=== PATIENT | male | born 1960 | race Caucasian/White ===

== ENCOUNTER 2016-12-13 07:11 | Day surgery (SDC) | payer OTHER ==
[2016-12-13] MEDS ORDERED: DEXAMETHASONE INJECTION 10 MG in SODIUM CHLORIDE 50 ML IVPB ONE (08:00)
[2016-12-13] MEDS ORDERED: PALONOSETRON HCL 0.25 MG in SODIUM CHLORIDE 50 ML IVPB ONE (08:00)
[2016-12-13] MEDS ORDERED: DEXTROSE 5% IVPB ONE (08:30)
[2016-12-13] MEDS ORDERED: WATER IVPB ONE (08:30)
[2016-12-13] MEDS ORDERED: LEUCOVORIN IVPB ONE (08:30)
[2016-12-13] MEDS ORDERED: OXALIPLATIN 100 MG, OXALIPLATIN 40 MG in DEXTROSE 5%-WATER - 500 ML IV ONE (08:30)
[2016-12-13 10:10] LABS: BASOPHIL 0.6 % (0-2.0); MCH 29.7 pg (25.7-33.7); MCHC 33.6 g/dl (32.0-35.9); MEAN CELL VOLUME 88.3 fl (80-96); MEAN PLT VOLUME 8.1 fl (7.5-11.1); NEUTROPHILS 74.3 % (42.8-82.8); PLATELET COUNT 188 K/MM3 (134-434); WHITE BLOOD COUNT 6.6 K/mm3 (4.0-10.0)
[2016-12-13 10:29] LABS: ALBUMIN 3.9 g/dl (3.4-5.0); ALK PHOS 58 U/L (45-117); ANION GAP 10 (8-16); BILIRUBIN,TOTAL 0.5 mg/dL (0.2-1.0); CALCIUM 9.1 mg/dL (8.5-10.1); CO2 27 mmol/L (21-32); COCKROFT - GAULT 131; CREATININE 0.9 mg/dL (0.7-1.3); GLUCOSE,RANDOM 147 mg/dL (74-106); MAGNESIUM 2.2 mg/dL (1.8-2.4); SGOT/AST 34 U/L (15-37); SGPT/ALT 56 U/L (12-78); TOT PROT 7.2 g/dl (6.4-8.2)
[2016-12-13] MEDS ORDERED: FLUOROURACIL IV ONE (10:30)
[2016-12-13] MEDS ORDERED: SODIUM CHLORIDE IV ONE (10:30)
[2016-12-13] MEDS ORDERED: SODIUM CHLORIDE 500 ML IV SCH (13:15)
[2016-12-13] MEDS ORDERED: DEXAMETHASONE INJECTION 12 MG in SODIUM CHLORIDE 50 ML IVPB ONE (13:15)
--- NOTE | 2016-12-13 13:36 | PN ---
Progress Note (short form) - Note Progress Note: ID consult dictated D/w Dr White irritation on the anterior shaft of penis- approx 1/2 cm getting more painful over last one week no fevers no chills no history of hsv not sexually active for over one year diagnosed with stage 3 rectal cancer in 12/2015, s/p chemo and RT, then surgery 06/29/16 now has colostomy ?hsv could be 1 or 2 ?juanis ?irritation from colostomy bag for chemotherapy today viral culture for HSV sent to start po valtrex and lotrimin cream d/w Dr White
[2016-12-13] MEDS ORDERED: CLOTRIMAZOLE 1% CREAM 15 GM TUBE TP SCH (13:45)
--- NOTE | 2016-12-13 14:17 | CONS ---
DATE OF CONSULTATION: REQUESTING PHYSICIAN: Cindy Hazel MD HISTORY: This is a 56-year-old man with a past medical history of hypertension. He was diagnosed in December 2015 with stage 3 rectal cancer. He underwent chemotherapy and radiation and subsequently underwent surgery on June 29, 2016 and had a colostomy done at that time. He was living in [place]. He then moved to [place] and is scheduled to start his chemotherapy. He has been complaining for the last 1 week of a small area of painful irritation on the anterior shaft of his penis, which has been increasing in discomfort. He denies any fevers, chills, nausea, or vomiting. He, otherwise, feels well. He does note that the colostomy bag the edge of one of the plastic sometimes does irritate him, and he is wondering could this be due to that irritation. He has never had a genital lesion in the past. There is no history of STDs. He has not been sexually active in over a year. There is no history of any prior HSV, and he is not diabetic. I am asked to see him regarding these lesions. ALLERGIES: He has no drug allergies. MEDICATIONS: He takes antihypertensives as an outpatient. PAST MEDICAL HISTORY: Notable for hypertension, stage 3 rectal cancer. PAST SURGICAL HISTORY: Notable for the recent surgery in June as well as prior left rotator cuff surgery. FAMILY HISTORY: Unremarkable. SOCIAL HISTORY: He is from his . There is no history of any substance use. REVIEW OF SYSTEMS: He has no weight loss. He has no nausea, vomiting, diarrhea, or dysuria. PHYSICAL EXAMINATION: General: He is awake and alert. Vital Signs: Temperature 98.6, pulse 100, blood pressure 140/90, respiratory rate 22. He weighs 227 pounds. HEENT: He is normocephalic. His eyes are anicteric. Neck: Supple. Lungs: Clear to auscultation. Chest: He has a port in his right chest that is without any erythema or pain on palpation. Heart: Regular rate and rhythm. Abdomen: Soft. He has a colostomy that is functional. Genitourinary: On his penis he has a small area of erosion of about 0.5 cm on the anterior aspect of the shaft of the penis. There is no obvious vesical, but it is slightly eroded. He has no associated inguinal adenopathy. LABORATORY DATA: His labs are notable for a white count 6.6, hemoglobin 14.6, platelets 188, BUN 14, creatinine 0.9. LFTs are normal. In summary, this is a 56-year-old man with stage 3 rectal cancer to start chemotherapy who has a small irritation on the anterior surface of his penis approximately 0.5 cm in size. This could possibly be HSV. It could be HSV1 as well as possibly [place] or irritation from the colostomy bag. He is for chemotherapy today. A viral culture for HSV was collected and sent. I would start oral Valtrex and Lotrimin cream. This was all discussed Dr. White and with the patient, who is agreeable. Chemotherapy per Dr. White who will follow up on the viral culture results. If the viral culture is negative, it could be reasonable to stop his Valtrex. YESSY ANDRE M.D. [id number]
[2016-12-13] MEDS ORDERED: PORTA CATH FLUSH 10 ML IVPUSH ONE (14:46)
[2016-12-13 14:47] VITALS: TEMP 98.2
--- NOTE | 2016-12-13 16:11 | CON.CARD ---
[id number] - History of Present Illness Chief Complaint: light headedness and occsional chest pain History of Present Illness: This is a 56 year old male with a PMH of HTN. In 12/2015 he was diagnosed with stage 3 rectal Ca. He underwent chemo and RT as well as surgery on 06/29/16. He had a colostomy done at that time. The patient had an episode of chest pain on which he described as a mid sternal tightness that occured after chemotherapy. At that time he presented to an ER and was found to have a normal EKG. He was given morphine and the pain resolved. He had his second chemo treatment on 09/07/16 and presented to his oncologist with chest pain on 09/09/16. He was evaluated by hospice community liaison Dr. Mcclure and the conclusion was that the chest pain was a reaction to the chemotherapy. The patient takes carvediol 12.5 mg PO BID, lisinopril 10 mg daily and simvastatin 20 mg daily. I saw him in the infusion unit today and he was chest pain free. He was complaining of occasional light headedness. I checked his BP Home Medications - Allergies Allergies/Adverse Reactions: Allergies Allergy/AdvReac Type Severity Reaction Status Date / Time No Known Allergies Allergy Verified 12/12/16 18:10 Vital Signs: Vital Signs Temperature 98.2 F 12/13/16 13:00 Pulse Rate 89 12/13/16 13:00 Respiratory Rate 20 12/13/16 13:00 Blood Pressure 153/95 12/13/16 13:00 O2 Sat by Pulse Oximetry (%) - Other Data Labs, Other Data: CBC, BMP 12/13/16 09:51 12/13/16 09:51 Assessment/Plan See other consultation documentation from today for full assessment and plan.
--- NOTE | 2016-12-13 16:25 | CON.CARD ---
Cardiology Consult (text) - Consultation Consultation Note: This is a 56 year old male with a PMH of HTN. In 12/2015 he was diagnosed with stage 3 rectal Ca. He underwent chemo and RT as well as surgery on 06/29/16. He had a colostomy done at that time. The patient had an episode of chest pain on which he described as a mid sternal tightness that occured after chemotherapy. At that time he presented to an ER and was found to have a normal EKG. He was given morphine and the pain resolved. He had his second chemo treatment on 09/07/16 and presented to his oncologist with chest pain on 09/09/16. He was evaluated by boarding specialist Dr. Mcclure and the conclusion was that the chest pain was a reaction to the chemotherapy. The patient takes carvediol 12.5 mg PO BID, lisinopril 10 mg daily and simvastatin 20 mg daily. I saw him in the infusion unit today and he was chest pain free. He was complaining of occasional light headedness. I checked his BP and it was 172/100 mmHg both standing and sitting. The BP was 142/90 mmHg earlier today. He did not take his baseline medications in the past 24 hours. PMH as above: HTN HLD Rectal CA Meds: carvediol 12.5 mg PO BID, lisinopril 10 mg daily and simvastatin 20 mg daily. Social history Former smoker Surgical history: 06/29/16 Colectomy/Colostomy NKDA Vitals 172/100 mmHg P 70 BPM Afebrile RR 12 per minute Well appearing and in NAD No JVD Lungs CTA Cor RRR NL S1S2 No MRHG Ab soft Ex no edema DP's intact Neuro A+Ox3, Grossly non focal A/P HTN Would continue carvedilol and lisinopril and recheck the BP when he is consistently taking these. HLD Continue low dose statin Chest pain Seems to be related to chemo Recommend a pharmacologic nuclear stress test as an outpatient to rule out CAD Had a recent echocardiogram, no need to repeat if the report can be obtained Lightheadedness Presently not orthostatic would recheck orthostatic BP's once he is consistently taking his BP meds
[2016-12-13] MEDS ORDERED: LISINOPRIL 20 MG TABLET (FP) PO ONE (17:19)
[2016-12-13 18:24] VITALS: BP 148/98
[2016-12-13 18:37] VITALS: PULSE 84
== END 2016-12-13 18:59 | disposition home or self-care (01) ==
LOC: JONCCHEMO 07:11 → JONCNONCHE 07:11 → J7W 12:24 → JONCNONCHE 18:59
PROVIDERS: ATTEND Internal Medicine Hematology & Oncology
PROC: 3E04305 Introduction of Other Antineoplastic into Central Vein, Percutaneous Approach (ICD-10-PCS; principal; 2016-12-13)
PROC: 3E04305 Introduction of Other Antineoplastic into Central Vein, Percutaneous Approach (ICD-10-PCS; 2016-12-13)
PROC: 3E043GC Introduction of Other Therapeutic Substance into Central Vein, Percutaneous Approach (ICD-10-PCS; 2016-12-13)
PROC: 3E0437Z Introduction of Electrolytic and Water Balance Substance into Central Vein, Percutaneous Approach (ICD-10-PCS; 2016-12-13)
DX: Z51.11 Encounter for antineoplastic chemotherapy (principal); C20 Malignant neoplasm of rectum
CPT/HCPCS: 96361; 96368; 96375; 96413; 96415; 96416; J9263; 36415; 80053; 83735; 85025; 87252; 96360; 96367; G0498; J2469

== ENCOUNTER 2016-12-15 07:16 | Day surgery (SDC) | payer OTHER ==
[2016-12-15] MEDS ORDERED: SODIUM CHLORIDE 600 ML IV ONE ×2 (17:15→18:15)
[2016-12-15] MEDS ORDERED: PORTA CATH FLUSH 10 ML IVPUSH ONE (18:17)
[2016-12-15 18:19] VITALS: BP 146/92; PULSE 90; TEMP 98.4
== END 2016-12-15 19:11 | disposition home or self-care (01) ==
LOC: JONCNONCHE 07:16 → J7W 16:52 → JONCNONCHE 19:11
PROVIDERS: ATTEND Internal Medicine Hematology & Oncology
PROC: 3C1ZX8Z Irrigation of Indwelling Device using Irrigating Substance, External Approach (ICD-10-PCS; principal; 2016-12-15)
PROC: 3E0437Z Introduction of Electrolytic and Water Balance Substance into Central Vein, Percutaneous Approach (ICD-10-PCS; 2016-12-15)
DX: Z51.11 Encounter for antineoplastic chemotherapy (principal); C20 Malignant neoplasm of rectum
CPT/HCPCS: 96360; 96361

== ENCOUNTER 2017-07-09 09:54 | Inpatient (IN) | payer OTHER ==
--- NOTE | 2017-07-09 09:58 | PDOC ---
History of Present Illness - General Stated Complaint: ABD PAIN Time Seen by Provider: 07/09/17 09:57 History Source: Patient, EMS Exam Limitations: No Limitations - History of Present Illness Initial Comments: 07/09/17 10:00 This is a 56 year old male with a PMH of HTN. In 12/2015 he was diagnosed with stage 3 rectal Ca. He underwent chemo and RT as well as surgery on 06/29/16. He had a colostomy done at that time. Patient comes to the ED complaining of vomiting and periumbilical and LRQ umbilical pain. Hx of intraabdominal abcess in march 2017. 07/09/17 10:12 07/09/17 11:23 07/09/17 18:17 Past History - Past Medical History Allergies/Adverse Reactions: Allergies Allergy/AdvReac Type Severity Reaction Status Date / Time No Known Allergies Allergy Verified 07/09/17 10:19 Home Medications: Ambulatory Orders Unobtainable [Unobtainable] 07/09/17 Review of Systems - Review of Systems Able to Perform ROS?: Yes Is the patient limited Occitan proficient: No Constitutional: Yes: Chills, Malaise, Weakness HEENTM: No: Symptoms Reported Respiratory: No: Symptoms reported Cardiac (ROS): No: Symptoms Reported ABD/GI: Yes: See HPI : No: Symptoms Reported Musculoskeletal: No: Symptoms Reported Integumentary: No: Symptoms Reported Neurological: No: Symptoms reported Endocrine: No: Symptoms Reported All Other Systems: Reviewed and Negative *Physical Exam - Physical Exam General Appearance: Yes: Nourished, Appropriately Dressed, Moderate Distress HEENT: positive: EOMI, ERNST, Normal ENT Inspection Neck: positive: Trachea midline. negative: Tender Respiratory/Chest: positive: Lungs Clear, Normal Breath Sounds. negative: Chest Tender, Respiratory Distress Cardiovascular: positive: Regular Rhythm, Tachycardia Gastrointestinal/Abdominal: positive: Soft, Decreased BS, Protuberent, Guarding , Hernia, Other (negative high-pitched sounds) Musculoskeletal: positive: Normal Inspection Extremity: positive: Normal Capillary Refill Integumentary: positive: Normal Color, Dry, Warm Neurologic: positive: Alert. negative: Confused, Disoriented ED Treatment Course - LABORATORY CBC & Chemistry Diagram: 07/09/17 10:28 07/09/17 10:28 Medical Decision Making - Medical Decision Making 07/09/17 12:33 56M with hx of rectal cancer and colectomy presents with severe abdominal pain and vomiting. Need to r/o SBO. will order cbc, cmp, xray and ct imaging. XRAy abdomen Imaging reveals degenerative changes, pelvic nata and clips, clear lung bases with large heart, elevated right hemidiaphragm and air-fluid level in the stomach. There are some airfilled loops of bowel seen centrally and in the upper abdomen. This could represent a focal ileus. There is a paucity of colonic gas. The question of an early partial small bowel obstruction must also be considered. Follow-up imaging recommended. If symptoms persist, further imaging with CT may be of help. 07/09/17 12:56 Creatine slightly more elevated than baseline, will give 2L of fluid and send to CT abd with IV contrast. and reassess. 3 different calls to the CAT Scan radiology department [id number] with no answer after waiting 5 minutes each call. 13.8 WBC, 3.2 lactate 07/09/17 17:[address] Martins who informed me that the reliability technician never closed the study which would have alerted him to do an official read and that he found the study by random chance. Read pending again. 07/09/17 17:34 Patient admitted to med surg by Dr. Fritz 07/09/17 17:49 *DC/Admit/Observation/Transfer Diagnosis at time of Disposition: Acute abdomen, Hernia - Discharge Dispostion Admit: Yes - Referrals Referrals: Og Fritz MD [Primary Care Provider] - - Patient Instructions - Post Discharge Activity
[2017-07-09] MEDS ORDERED: ONDANSETRON 4 MG/2 ML VIAL ONE ×2 (10:08→18:51)
[2017-07-09] MEDS ORDERED: ONDANSETRON *ODT* 4 MG TABLET SL ONE (10:11)
[2017-07-09] MEDS ORDERED: ONDANSETRON *ODT* 4 MG TABLET ONE ×2 (10:12→11:38)
--- NOTE | 2017-07-09 10:14 | PDOC ---
Attending Attestation - Resident Resident Name: Zachariah Banerjee - ED Attending Attestation I have performed the following: I have examined & evaluated the patient, The case was reviewed & discussed with the resident, I agree w/resident's findings & plan, Exceptions are as noted - HPI HPI: 07/09/17 10:11 56 yo with multiple surgeries hx of rectal cancer presents with abdominal pain, back pain and vomiting. Just started oxycontin and new bp med. Two ventral wall hernias. - Physicial Exam PE: 07/09/17 10:13 Abdomen distended but not really tender. Hernia's appreciated. - Medical Decision Making 07/09/17 10:[address] Zachariah Banerjee's assessment and plan
[2017-07-09 10:37] LABS: BASOPHIL 0.4 % (0-2.0); EOSINOPHIL 0.2 % (0-4.5); MCH 27.8 pg (25.7-33.7); MCHC 34.1 g/dl (32.0-35.9); MEAN CELL VOLUME 81.5 fl (80-96); MEAN PLT VOLUME 8.1 fl (7.5-11.1); NEUTROPHILS 85.6 % (42.8-82.8); PLATELET COUNT 318 K/MM3 (134-434); RDW 15.3 % (11.9-15.9); WHITE BLOOD COUNT 13.8 K/mm3 (4.0-10.0)
[2017-07-09 10:59] LABS: ALBUMIN 4.1 g/dl (3.4-5.0); ALK PHOS 75 U/L (45-117); ANION GAP 9 (8-16); BILIRUBIN,TOTAL 0.8 mg/dL (0.2-1.0); CALCIUM 9.4 mg/dL (8.5-10.1); CO2 29 mmol/L (21-32); CREATININE 1.5 mg/dL (0.7-1.3); GLUCOSE,RANDOM 195 mg/dL (74-106); SGPT/ALT 37 U/L (12-78); TOT PROT 8.6 g/dl (6.4-8.2)
[2017-07-09 11:09] LABS: INR 1.12 (0.82-1.09); PROTHROMBIN TIME (PATIENT) 12.7 SEC (9.98-11.88)
[2017-07-09 11:12] LABS: ACTIVATED PTT 28.4 SECONDS (26.9-34.4)
[2017-07-09 11:15] LABS: SGOT/AST 33 U/L (15-37)
[2017-07-09] MEDS ORDERED: SODIUM CHLORIDE 2,000 ML IV STA (11:18)
[2017-07-09] MEDS ORDERED: morphine CARPU-JECT 4 MG/1 ML DISP.SYRIN IVPUSH ONE ×2 (11:36→15:34)
[2017-07-09] MEDS ORDERED: ONDANSETRON 4 MG/2 ML VIAL IVPUSH PRN (11:36)
[2017-07-09] MEDS ORDERED: morphine SULFATE 4 MG/ML VIAL ONE ×3 (11:38→18:27)
[2017-07-09 13:25] LABS: URINE APPEARANCE CLEAR; URINE BILIRUBIN NEGATIVE (NEGATIVE); URINE BLOOD NEGATIVE (NEGATIVE); URINE COLOR LTYELLOW; URINE GLUCOSE (UA) NEGATIVE (NEGATIVE); URINE KETONE TRACE (NEGATIVE); URINE NITRITE NEGATIVE (NEGATIVE); URINE PROTEIN NEGATIVE (NEGATIVE); URINE UROBILINOGEN NEGATIVE mg/dL (0.2-1.0)
[2017-07-09] MEDS ORDERED: DEXTROSE 5%-WATER - 1,000 ML IV SCH (18:00)
[2017-07-09] MEDS ORDERED: PANTOPRAZOLE SODIUM 40 MG VIAL IVPUSH SCH (18:00)
[2017-07-09] MEDS ORDERED: METRONIDAZOLE 500 MG PREMIXED 500 MG/100 ML MG IVPB ONE (18:03)
[2017-07-09] MEDS ORDERED: LEVOFLOXACIN 500 MG IVPB 500 MG/100 ML BAG IVPB ONE (18:03)
[2017-07-09] MEDS ORDERED: PANTOPRAZOLE SODIUM 40 MG VIAL ONE (18:04)
[2017-07-09] MEDS: PANTOPRAZOLE SODIUM 40 MG VIAL IVPUSH SCH (18:17)
[2017-07-09] MEDS: LEVOFLOXACIN 500 MG IVPB 500 MG/100 ML BAG IVPB SCH (18:17)
[2017-07-09] MEDS: ONDANSETRON 4 MG/2 ML VIAL IVPUSH PRN (18:58)
[2017-07-09] MEDS: morphine SULFATE 4 MG/ML VIAL IVPUSH PRN (18:58)
[2017-07-09 19:05] VITALS: BMI 31.7
--- NOTE | 2017-07-09 19:36 | CONSULT ---
Consult Consult Specialty:: general surgery Referred by:: william cuevas Reason for Consultation:: abdominal pain - History of Present Illness Chief Complaint: abdominal pain and dizziness History of Present Illness: 56 yo male PMH HTN, stage 3 rectal cancer diagnosed 12/2015 (in [place]) had chemo and RT and s/p Low anterior ressection on 06/2016. He had another surgery for a bowel obstruction after the initial one. He reports that 3 months later (in [facility] in [place], [place]) there as an attempted reversal that was abortedfor some reason. Patient comes to the ED complaining of vomiting and periumbilical and LRQ umbilical pain. He reported feeling dizzy for the past 2 days that prompted his visit. He has had mid abdominal pain for the last 2 weeks. He had an abdominal wall abscess in 03/2017. He did not notice an associated change in ostomy output. He is having normal formed and loose BM in the colostomy and gas. He denies nausea and vomiting. He denies fever and chills. We were asked to assess. - History Source History Provided By: Patient Limitations to Obtaining History: No Limitations - Past Medical History Cardio/Vascular: Yes: HTN Gastrointestinal: Yes: Cancer (rectal cancer stage 3) - Past Surgical History Past Surgical History: Yes: Colectomy, Colostomy - Alcohol/Substance Use Hx Alcohol Use: No - Smoking History Smoking history: Never smoked Have you smoked in the past 12 months: No - Social History Place of : [facility] History of Recent Travel: No Home Medications - Allergies Allergies/Adverse Reactions: Allergies Allergy/AdvReac Type Severity Reaction Status Date / Time No Known Allergies Allergy Verified 07/09/17 10:19 - Home Medications Home Medications: Ambulatory Orders Unobtainable [Unobtainable] 07/09/17 Physical Exam Vital Signs: Vital Signs Temperature 99.5 F 07/09/17 10:26 Pulse Rate 97 H 07/09/17 18:58 Respiratory Rate 18 07/09/17 18:58 Blood Pressure 153/69 07/09/17 18:58 O2 Sat by Pulse Oximetry (%) 94 L 07/09/17 19:17 Vital Signs Period Temp Pulse Resp BP Sys/Glass Pulse Ox Last 24 Hr 97.5 F-99.5 F 84-114 14-20 149-184/42-108 94-100 Constitutional: Yes: Well Nourished, No Distress, Calm Eyes: Yes: Conjunctiva Clear, EOM Intact HENT: Yes: Atraumatic, Normocephalic Neck: Yes: Supple, Trachea Midline Cardiovascular: Yes: Regular Rate and Rhythm, S1, S2. No: Murmur Respiratory: Yes: Regular, CTA Bilaterally Gastrointestinal: Yes: Normal Bowel Sounds, Soft, Hernia (ventral incisonal hernia reducible), Tenderness (tender in supraumbilical area), Tenderness, Rebound, Other (colostomy RLQ). No: Distention, Tenderness, Epigastrium, Vomiting ...Rectal Exam: Yes: Deferred Renal/: No: CVA Tenderness - Left, CVA Tenderness - Right Musculoskeletal: No: Muscle Pain, Muscle Weakness Extremities: No: Cool, Cyanosis Edema: No Neurological: Yes: Alert, Oriented Psychiatric: Yes: Alert, Oriented Labs: CBC,CMP WBC 8.9 K/mm3 (4.0-10.0) D 07/10/17 06:40 RBC 4.76 M/mm3 (4.00-5.60) 07/10/17 06:40 Hgb 13.1 GM/dL (11.7-16.9) D 07/10/17 06:40 Hct 38.8 % (35.4-49) 07/10/17 06:40 MCV 81.5 fl (80-96) 07/10/17 06:40 MCH 27.5 pg (25.7-33.7) 07/10/17 06:40 MCHC 33.7 g/dl (32.0-35.9) 07/10/17 06:40 RDW 14.9 % (11.9-15.9) 07/10/17 06:40 Plt Count 222 K/MM3 (134-434) D 07/10/17 06:40 MPV 7.8 fl (7.5-11.1) 07/10/17 06:40 Neutrophils % 85.6 % (42.8-82.8) H 07/09/17 10:28 Lymphocytes % 9.6 % (8-40) D 07/09/17 10:28 Monocytes % 4.2 % (3.8-10.2) 07/09/17 10:28 Eosinophils % 0.2 % (0-4.5) 07/09/17 10:28 Basophils % 0.4 % (0-2.0) 07/09/17 10:28 ESR 41 mm/hr (0-20) H 07/09/17 20:55 Sodium 135 mmol/L (136-145) L 07/10/17 06:40 Potassium 3.2 mmol/L (3.5-5.1) L 07/10/17 06:40 Chloride 97 mmol/L (98-107) L 07/10/17 06:40 Carbon Dioxide 30 mmol/L (21-32) 07/10/17 06:40 Anion Gap 8 (8-16) 07/10/17 06:40 BUN 13 mg/dL (7-18) D 07/10/17 06:40 Creatinine 1.2 mg/dL (0.7-1.3) 07/10/17 06:40 Creat Clearance w eGFR > 60 (>60) 07/10/17 06:40 Random Glucose 141 mg/dL (74-106) H D 07/10/17 06:40 Lactic Acid 0.9 mmol/L (0.4-2.0) 07/09/17 15:45 Calcium 8.6 mg/dL (8.5-10.1) 07/10/17 06:40 Total Bilirubin 0.6 mg/dL (0.2-1.0) D 07/10/17 06:40 AST 17 U/L (15-37) D 07/10/17 06:40 ALT 25 U/L (12-78) D 07/10/17 06:40 Alkaline Phosphatase 62 U/L (45-117) 07/10/17 06:40 C-Reactive Protein 1.6 MG/DL (0.00-0.3) H 07/09/17 20:55 Total Protein 7.2 g/dl (6.4-8.2) 07/10/17 06:40 Albumin 3.4 g/dl (3.4-5.0) 07/10/17 06:40 Lipase 135 U/L (73-393) 07/09/17 10:28 Intake & Output 07/09/17 07/10/17 07/10/17 23:59 07:59 15:59 Intake Total 266 671 Balance 266 671 Weight 215 lb Intake: IV 166 571 D5w - 1,000 ml @ 83 mls/ 166 571 hr IV ASDIR [facility] Rx#: [id number] IVPB 100 100 Other: Voiding Method Urinal Urinal Height 5 ft 9 in Body Mass Index (BMI) 31.7 Weight Measurement Method Stated by Patient Abnormal Lab Results 07/09/17 07/09/17 07/09/17 10:28 10:28 10:28 WBC 13.8 H D Neutrophils % 85.6 H ESR PT with INR Sodium 134 L Potassium Chloride 96 L BUN 24 H D Creatinine 1.5 H D Random Glucose 195 H Lactic Acid 3.2 H* C-Reactive Protein Total Protein 8.6 H Urine Ketones 07/09/17 07/09/17 07/09/17 10:28 13:14 20:55 WBC Neutrophils % ESR PT with INR 12.70 H Sodium Potassium Chloride BUN Creatinine Random Glucose Lactic Acid C-Reactive Protein 1.6 H Total Protein Urine Ketones Trace H 07/09/17 07/10/17 20:55 06:40 WBC Neutrophils % ESR 41 H PT with INR Sodium 135 L Potassium 3.2 L Chloride 97 L BUN Creatinine Random Glucose 141 H D Lactic Acid C-Reactive Protein Total Protein Urine Ketones Imaging - Results X-ray: Report Reviewed, Image Reviewed (mild ileus pattern central abdomen) Cat Scan: Report Reviewed, Image Reviewed (fecalized small bowel loop, left hydronephrosis, large LN in pelvis, soft tissue density at rectal stump and adjacent to the colosomy, intraabdominal free fluid collection.) Problem List - Problems (1) Intraabdominal fluid collection Assessment/Plan: 56yo male with stage 3 rectal cancer presents with abdominal pain dizziness, possible tumor recurrence with early carcinomatosis no sign of obstruction or perforation at this time. Left side hydronephrosis with distal ureteral occlusion, intraabdominal free fluid, increasing sized LNs, and enlargeing soft tissue masses compared to a CT in 03/2017. No emergency surgery is indicated at this time Full liquids optimize nutrition Serum tumor markers added 07/10 (CEA) IR consult to see if aspiration of free fluid can be done Medical oncology consult Code(s): R18.8 - OTHER ASCITES (2) Hydronephrosis due to obstruction of ureter Assessment/Plan: Please obtain a urology consult for Left hydroneprosis seen on CT scan 07/09 possibe tumor reccurence obstruction the left ureter at the pelvic brim near the rectal stump. Code(s): N13.2 - HYDRONEPHROSIS WITH RENAL AND URETERAL CALCULOUS OBSTRUCTION (3) Rectal adenocarcinoma Code(s): C20 - MALIGNANT NEOPLASM OF RECTUM (4) HTN (hypertension) Code(s): I10 - ESSENTIAL (PRIMARY) HYPERTENSION
[2017-07-09] MEDS: METRONIDAZOLE 500 MG PREMIXED 500 MG/100 ML MG IVPB SCH (21:13)
[2017-07-09 21:15] LABS: URINE LEUK ESTERASE Negative (NEGATIVE)
[2017-07-09] MEDS ORDERED: amLODIPine BESYLATE 10 MG TABLET (FP) PO ONE (22:15)
[2017-07-10] MEDS: METRONIDAZOLE 500 MG PREMIXED 500 MG/100 ML MG IVPB SCH ×3 (02:15→17:07)
[2017-07-10 07:54] LABS: MCH 27.5 pg (25.7-33.7); MCHC 33.7 g/dl (32.0-35.9); MEAN CELL VOLUME 81.5 fl (80-96); MEAN PLT VOLUME 7.8 fl (7.5-11.1); PLATELET COUNT 222 K/MM3 (134-434); RDW 14.9 % (11.9-15.9); WHITE BLOOD COUNT 8.9 K/mm3 (4.0-10.0)
[2017-07-10 08:34] LABS: ALBUMIN 3.4 g/dl (3.4-5.0); ALK PHOS 62 U/L (45-117); ANION GAP 8 (8-16); BILIRUBIN,TOTAL 0.6 mg/dL (0.2-1.0); CALCIUM 8.6 mg/dL (8.5-10.1); CO2 30 mmol/L (21-32); CREATININE 1.2 mg/dL (0.7-1.3); GLUCOSE,RANDOM 141 mg/dL (74-106); SGOT/AST 17 U/L (15-37); SGPT/ALT 25 U/L (12-78); TOT PROT 7.2 g/dl (6.4-8.2)
[2017-07-10] MEDS: morphine SULFATE 4 MG/ML VIAL IVPUSH PRN ×2 (08:41→16:31)
[2017-07-10] MEDS: D5-1/2NS+20 MEQ KCL - 20 MEQ/1,000 ML INFUS.BAG IV SCH (08:41)
--- NOTE | 2017-07-10 09:21 | PN ---
Progress Note (short form) - Note Progress Note: Patient was seen and examined He feel hungry and is tolerating full liquid diet. Normal production from his colostomy. Awaiting his daughter with his records Problem List - Problems (1) Intraabdominal fluid collection Code(s): R18.8 - OTHER ASCITES (2) Hydronephrosis due to obstruction of ureter Code(s): N13.2 - HYDRONEPHROSIS WITH RENAL AND URETERAL CALCULOUS OBSTRUCTION (3) Rectal adenocarcinoma Code(s): C20 - MALIGNANT NEOPLASM OF RECTUM (4) HTN (hypertension) Code(s): I10 - ESSENTIAL (PRIMARY) HYPERTENSION
[2017-07-10] MEDS: LEVOFLOXACIN 500 MG IVPB 500 MG/100 ML BAG IVPB SCH (10:00)
[2017-07-10] MEDS: PANTOPRAZOLE SODIUM 40 MG VIAL IVPUSH SCH ×2 (10:08→22:02)
--- NOTE | 2017-07-10 12:57 | CON.ID ---
Consult Consult Specialty:: Infectious Disease - History of Present Illness Chief Complaint: abd pain History of Present Illness: This is a 56 y.o. male with history of St 3 rectal CA s/p chemo and RT in the past, bowel obstruction s/p colectomy/colostomy one yr ago and drainage of intra -abdominal abscess in 03/2017 presenting with periumbilical, pericolostomy and lower abd pain for the past couple of wks. 2 days ago he became dizzy and had some chills and weakness. States pain was 7/10 in intensity. Tried to self- induce vomiting. Also with vague pain in the back (? CVA) b/l. In the ER was afebrile but with mild leukocytosis. - History Source History Provided By: Patient Limitations to Obtaining History: No Limitations - Past Medical History Cardio/Vascular: Yes: HTN Gastrointestinal: Yes: Cancer (rectal cancer stage 3) Infectious Disease: No: AIDS, C-Diff, Herpes Zoster, HIV, MRSA, STD's, Tuberculosis, VREF, Other - Past Surgical History Past Surgical History: Yes: Colectomy, Colostomy - Alcohol/Substance Use Hx Alcohol Use: No - Smoking History Smoking history: Never smoked Have you smoked in the past 12 months: No - Social History Usual Living Arrangement: Alone History of Recent Travel: No Home Medications - Allergies Allergies/Adverse Reactions: Allergies Allergy/AdvReac Type Severity Reaction Status Date / Time No Known Allergies Allergy Verified 07/09/17 10:19 - Home Medications Home Medications: Ambulatory Orders Unobtainable [Unobtainable] 07/09/17 Family Disease History - Family Disease History Family History: Denies Review of Systems - Review of Systems Constitutional: reports: Weakness Eyes: reports: No Symptoms HENT: reports: No Symptoms Neck: reports: No Symptoms Cardiovascular: reports: No Symptoms Respiratory: reports: No Symptoms Gastrointestinal: reports: Abdominal Pain (periumbilical/ pericolostomy/ lower abd) Genitourinary: reports: No Symptoms Musculoskeletal: reports: No Symptoms Integumentary: reports: No Symptoms Neurological: reports: Dizziness (x 2 days) Endocrine: reports: No Symptoms Hematology/Lymphatic: reports: No Symptoms Psychiatric: reports: No Symptoms Pain Intensity: 6 Physical Exam Vital Signs: Vital Signs Temperature 98.8 F 07/10/17 06:32 Pulse Rate 92 H 07/10/17 06:32 Respiratory Rate 20 12/04/17 06:32 Blood Pressure 149/42 07/10/17 06:32 O2 Sat by Pulse Oximetry (%) 98 07/10/17 10:00 Constitutional: Yes: No Distress Eyes: Yes: WNL HENT: Yes: WNL Neck: Yes: Supple Cardiovascular: Yes: Regular Rate and Rhythm Respiratory: Yes: CTA Bilaterally Gastrointestinal: Yes: Normal Bowel Sounds, Soft, Tenderness (periumbilical, pericolostomy, lower abd) ...Rectal Exam: Yes: Deferred Renal/: Yes: WNL Musculoskeletal: Yes: WNL Extremities: Yes: WNL Edema: No Integumentary: Yes: WNL Neurological: Yes: Alert, Oriented Psychiatric: Yes: Alert Labs: CBC, BMP 07/10/17 06:40 07/10/17 06:40 blood/urine cultures pending Imaging - Results Cat Scan: Report Reviewed (Abd/Pelvis: thickened SB loops without obvious obstruction. Free fluid LUQ and lower abd. B/l hydronephrosis/hydroureter. No collection to suggest abscess.) Problem List - Problems (1) Acute abdomen Code(s): R10.0 - ACUTE ABDOMEN (2) Hernia Code(s): K46.9 - UNSPECIFIED ABDOMINAL HERNIA WITHOUT OBSTRUCTION OR GANGRENE (3) Hydronephrosis due to obstruction of ureter Code(s): N13.2 - HYDRONEPHROSIS WITH RENAL AND URETERAL CALCULOUS OBSTRUCTION (4) Rectal adenocarcinoma Code(s): C20 - MALIGNANT NEOPLASM OF RECTUM Assessment/Plan 56 y.o. male with St 3 rectal CA, s/p chemo/radiation in the past, bowel obstruction s/p colectomy/colostomy, intraabdominal abscess s/p drainage presenting with periumbilical, pericolostomy, and lower abd pain. Questionable CVA tenderness without dysuria. Abdominal pain Leukocytosis B/L hydronephrosis/hydroureter Possible tumor recurrence - cont. Levaquin/Flagyl IV empirically for now - wbc now normal - Surgery and Heme/Onc followup - continue monitor vitals
--- NOTE | 2017-07-10 13:29 | EKG ---
Test Reason : Blood Pressure : / mmHG Vent. Rate : 104 BPM Atrial Rate : 104 BPM P-R Int : 138 ms QRS Dur : 086 ms QT Int : 368 ms P-R-T Axes : 070 -21 047 degrees QTc Int : 483 ms SINUS TACHYCARDIA WHEN COMPARED WITH ECG OF 13-NOV-2003 22:09, VENT. RATE HAS INCREASED Confirmed by MADALYN HUSTON MD ([id number]) on 07/10/2017 1:29:28 PM Referred By: Confirmed By:MADALYN HUSTON MD
--- NOTE | 2017-07-10 14:06 | CONSULT ---
Consult Consult Specialty:: Nephrology Reason for Consultation:: dehydration - History of Present Illness Chief Complaint: vomiting and abdominal pain History of Present Illness: Pt is a 56 year old male with pmhx of rectal cancer and HTN who presents to the ER with abdominal pain and nausea. He says he had abdominal pain and an episode of vomiting the day before admission. He was on chemo and RT for rectal cancer. He was found to have elevated creatinine and I was called to evaluate him. He denies history of CKD. He denies nsaid use. He says he was on lisinopril however it was stopped. He still has abdominal pain. He does have a colostomy bag. He does have history of intra-abdominal abscess. - History Source History Provided By: Patient - Past Medical History Cardio/Vascular: Yes: HTN Gastrointestinal: Yes: Cancer (rectal cancer stage 3) Infectious Disease: Yes: Other (intra-abdominal abscess) - Past Surgical History Past Surgical History: Yes: Colectomy, Colostomy - Alcohol/Substance Use Hx Alcohol Use: No - Smoking History Smoking history: Never smoked Have you smoked in the past 12 months: No - Social History Usual Living Arrangement: Alone History of Recent Travel: No Home Medications - Allergies Allergies/Adverse Reactions: Allergies Allergy/AdvReac Type Severity Reaction Status Date / Time No Known Allergies Allergy Verified 07/09/17 10:19 - Home Medications Home Medications: Ambulatory Orders Unobtainable [Unobtainable] 07/09/17 Family Disease History - Family Disease History Family History: Denies Review of Systems - Review of Systems Constitutional: reports: Malaise. denies: Chills Eyes: reports: No Symptoms HENT: reports: No Symptoms Neck: reports: No Symptoms Cardiovascular: reports: No Symptoms Gastrointestinal: reports: Abdominal Pain, Vomiting Genitourinary: reports: No Symptoms Musculoskeletal: reports: No Symptoms Integumentary: reports: No Symptoms Neurological: reports: No Symptoms Endocrine: reports: No Symptoms Hematology/Lymphatic: reports: No Symptoms Psychiatric: reports: No Symptoms Physical Exam Vital Signs: Vital Signs Temperature 98.8 F 07/10/17 06:32 Pulse Rate 92 H 07/10/17 06:32 Respiratory Rate 20 07/10/17 06:32 Blood Pressure 149/42 07/10/17 06:32 O2 Sat by Pulse Oximetry (%) 98 07/10/17 10:00 Constitutional: Yes: Calm Eyes: Yes: Conjunctiva Clear HENT: Yes: Atraumatic Neck: Yes: Supple Cardiovascular: Yes: S1, S2 Respiratory: Yes: CTA Bilaterally Gastrointestinal: Yes: Hernia, Tenderness, Other (colostomy) Renal/: Yes: WNL Musculoskeletal: Yes: Muscle Weakness Edema: No Neurological: Yes: Oriented Psychiatric: Yes: Oriented Labs: CBC, BMP 07/10/17 06:40 07/10/17 06:40 Laboratory Tests 07/09/17 07/09/17 07/09/17 10:28 10:28 10:28 WBC 13.8 H D Hgb 14.8 D Sodium 134 L Potassium 3.6 Chloride Carbon Dioxide Anion Gap BUN 24 H D Creatinine 1.5 H D Lactic Acid 3.2 H* Urine Protein Urine Ketones Urine Blood 07/09/17 07/09/17 07/10/17 13:14 15:45 06:40 WBC 8.9 D Hgb 13.1 D Sodium Potassium Chloride Carbon Dioxide Anion Gap BUN Creatinine Lactic Acid 0.9 Urine Protein Negative Urine Ketones Trace H Urine Blood Negative 07/10/17 06:40 WBC Hgb Sodium 135 L Potassium 3.2 L Chloride 97 L Carbon Dioxide 30 Anion Gap 8 BUN 13 D Creatinine 1.2 Lactic Acid Urine Protein Urine Ketones Urine Blood Imaging - Results Cat Scan: Report Reviewed (bilateral renal hydro) Problem List - Problems (1) Acute abdomen Code(s): R10.0 - ACUTE ABDOMEN (2) HTN (hypertension) Code(s): I10 - ESSENTIAL (PRIMARY) HYPERTENSION (3) Hernia Code(s): K46.9 - UNSPECIFIED ABDOMINAL HERNIA WITHOUT OBSTRUCTION OR GANGRENE (4) Hydronephrosis due to obstruction of ureter Code(s): N13.2 - HYDRONEPHROSIS WITH RENAL AND URETERAL CALCULOUS OBSTRUCTION (5) Rectal adenocarcinoma Code(s): C20 - MALIGNANT NEOPLASM OF RECTUM Assessment/Plan Current Medications Generic Name Dose Route Start Last Admin Trade Name Freq PRN Reason Stop Dose Admin Metronidazole 500 mg in 100 mls @ 100 mls/hr 07/09/17 18:00 07/10/17 11:10 Flagyl 500mg Premixed Ivpb - IVPB 100 mls/hr Q8H-IV [facility] Administration Levofloxacin 500 mg in 100 mls @ 100 mls/hr 07/09/17 18:00 07/10/17 10:00 Levaquin 500 Mg Premixed Ivpb - IVPB 100 mls/hr DAILY [facility] Administration Potassium Chloride/Dextrose/Sod Cl 20 meq in 1,000 mls @ 100 mls/hr 07/10/17 08:00 07/10/17 08:41 D5-1/2ns+20 Meq Kcl - IV 100 mls/hr ASDIR MAT Administration Morphine Sulfate 4 mg 07/09/17 17:50 07/10/17 08:41 Morphine Sulfate IVPUSH 4 mg Q4H PRN Administration PAIN Ondansetron HCl 4 mg 07/09/17 17:48 07/09/17 18:58 Zofran Injection IVPUSH 4 mg Q4H PRN Administration NAUSEA AND/OR VOMITING Pantoprazole Sodium 40 mg 07/09/17 18:00 07/10/17 10:08 Protonix Iv IVPUSH 40 mg BID MAT Administration Impression 1. dehydration 2. abdominal pain 3. HTN 4. rectal cancer 5. hydronephrosis 6. hypokalemia 7. abdominal hernia Plan - recommend urology eval for hydro - renal function improved with fluids - check urine lytes and sodium - can give amlodipine for elevated bp - replace potassium - repeat labs in am - abx per ID - follow cultures - check mag level - will follow Dr Willams
[2017-07-10] MEDS ORDERED: POTASSIUM CHLORIDE TABS 20 MEQ TABLET.ER (FP) PO ONE (14:14)
[2017-07-10] MEDS: amLODIPine BESYLATE 5 MG TABLET (FP) PO SCH (15:34)
--- NOTE | 2017-07-10 15:42 | CON.GU ---
Consult - History of Present Illness Chief Complaint: acute renal insufficiency History of Present Illness: Patient with history of rectal cancer s/p radiation, chemo, and surgery. Patient denies difficulty voiding and has no previous urologic problems. The patient does complain of severe back pain. No current nausea or vomiting. The patient is receiving narcotics for pain relief. - History Source History Provided By: Patient Limitations to Obtaining History: No Limitations - Past Medical History Cardio/Vascular: Yes: HTN Gastrointestinal: Yes: Cancer (rectal cancer stage 3) Infectious Disease: Yes: Other (intra-abdominal abscess) - Past Surgical History Past Surgical History: Yes: Colectomy, Colostomy - Alcohol/Substance Use Hx Alcohol Use: No - Smoking History Smoking history: Never smoked Have you smoked in the past 12 months: No - Social History Usual Living Arrangement: Alone History of Recent Travel: No Home Medications - Allergies Allergies/Adverse Reactions: Allergies Allergy/AdvReac Type Severity Reaction Status Date / Time No Known Allergies Allergy Verified 07/09/17 10:19 - Home Medications Home Medications: Ambulatory Orders Unobtainable [Unobtainable] 07/09/17 Physical Exam- Vital Signs: Vital Signs Temperature 98.4 F 07/10/17 14:28 Pulse Rate 92 H 07/10/17 14:28 Respiratory Rate 16 07/10/17 14:28 Blood Pressure 131/56 07/10/17 14:28 O2 Sat by Pulse Oximetry (%) 98 07/10/17 10:00 Constitutional: Yes: Well Nourished, No Distress, Calm Eyes: Yes: WNL, Conjunctiva Clear, EOM Intact HENT: Yes: WNL, Atraumatic, Normocephalic Neck: Yes: WNL, Supple, Trachea Midline, Tenderness Cardiovascular: Yes: WNL, S4 Respiratory: Yes: WNL, Regular Gastrointestinal: Yes: Soft, Abdomen, Obese (well healed lower abdominal scar with incisional herna; no rebound) Renal/: Yes: CVA Tenderness - Left, CVA Tenderness - Right Kidneys: Yes: Flank Pain Left, FLank Pain Right Pelvis: Yes: Bladder Non Palpable Testicles: Yes: WNL Scrotum: Yes: WNL Penis: Yes: WNL Prostate Exam: Yes: WNL Musculoskeletal: Yes: WNL Extremities: Yes: WNL Labs: CBC, BMP 07/10/17 06:40 07/10/17 06:40 Imaging - Results Cat Scan: Report Reviewed Assessment/Plan impression acute renal insufficiency bliateral hydronephrosis plan will order renal scan with lasix in order to evaluate hyronephrosis; creatinine is normalizing after correction of dehydration so there is emergency to take the patient to the OR for retrograde and stents. Discussed with Dr. Willams and patient discussed x 25 minutes
[2017-07-10] MEDS: ONDANSETRON 4 MG/2 ML VIAL IVPUSH PRN (16:40)
--- NOTE | 2017-07-10 17:29 | HP ---
Admitting History and Physical - Primary Care Physician PCP: Og Fritz - Admission Chief Complaint: ABDOMINAL PAIN/ACUTE RENAL FAILURE History of Present Illness: 56 yo male PMH HTN, stage 3 rectal cancer diagnosed 12/2015 (in [place]) had chemo and RT and s/p Low anterior ressection on 06/2016. He had another surgery for a bowel obstruction after the initial one. He reports that 3 months later (in [facility] in [place], [place]) there as an attempted reversal that was aborted for some reason. Patient comes to the ED complaining of vomiting and periumbilical and LRQ umbilical pain. He reported feeling dizzy for the past 2 days that prompted his visit. He has had mid abdominal pain for the last 2 weeks. He had an abdominal wall abscess in 03/2017. He did not notice an associated change in ostomy output. He is having normal formed and loose BM in the colostomy and gas. He denies nausea and vomiting. He denies fever and chills. We were asked to assess. History Source: Patient, Family Member, Medical Record Limitations to Obtaining History: Poor Historian - Past Medical History Cardiovascular: Yes: HTN Gastrointestinal: Yes: Cancer (rectal cancer stage 3) Infectious Disease: Yes: Other (intra-abdominal abscess) - Past Surgical History Past Surgical History: Yes: Colectomy, Colostomy - Smoking History Smoking history: Never smoked Have you smoked in the past 12 months: No - Alcohol/Substance Use Hx Alcohol Use: No - Social History History of Recent Travel: No Home Medications - Allergies Allergies/Adverse Reactions: Allergies Allergy/AdvReac Type Severity Reaction Status Date / Time No Known Allergies Allergy Verified 07/09/17 10:19 - Home Medications Home Medications: Ambulatory Orders Unobtainable [Unobtainable] 07/09/17 Review of Systems - Review of Systems Constitutional: reports: Weakness Eyes: reports: No Symptoms HENT: reports: No Symptoms Neck: reports: No Symptoms Cardiovascular: reports: No Symptoms Respiratory: reports: No Symptoms Gastrointestinal: reports: Other Genitourinary: reports: Other Musculoskeletal: reports: Other Integumentary: reports: No Symptoms Neurological: reports: Weakness Endocrine: reports: No Symptoms Hematology/Lymphatic: reports: No Symptoms Psychiatric: reports: No Symptoms Physical Examination Vital Signs: Vital Signs Temperature 98.4 F 07/10/17 14:28 Pulse Rate 92 H 07/10/17 14:28 Respiratory Rate 16 07/10/17 14:28 Blood Pressure 131/56 07/10/17 14:28 O2 Sat by Pulse Oximetry (%) 98 07/10/17 10:00 Constitutional: Yes: Mild Distress Eyes: Yes: WNL HENT: Yes: WNL Neck: Yes: WNL Cardiovascular: Yes: WNL Respiratory: Yes: WNL Gastrointestinal: Yes: Other (OSTOMY , TENDER) Renal/: Yes: WNL Musculoskeletal: Yes: Muscle Weakness Extremities: Yes: Other Edema: No Peripheral Pulses WNL: Yes Integumentary: Yes: WNL Wound/Incision: Yes: Clean/Dry Neurological: Yes: WNL ...Motor Strength: WNL Psychiatric: Yes: Agitated Labs: CBC, BMP 07/10/17 06:40 07/10/17 06:40 Problem List - Problems (2) Acute abdomen Code(s): R10.0 - ACUTE ABDOMEN (3) HTN (hypertension) Code(s): I10 - ESSENTIAL (PRIMARY) HYPERTENSION Qualifiers: Hypertension type: essential hypertension Qualified Code(s): I10 - Essential (primary) hypertension (4) Hernia Code(s): K46.9 - UNSPECIFIED ABDOMINAL HERNIA WITHOUT OBSTRUCTION OR GANGRENE (5) Hydronephrosis due to obstruction of ureter Code(s): N13.2 - HYDRONEPHROSIS WITH RENAL AND URETERAL CALCULOUS OBSTRUCTION (6) Intraabdominal fluid collection Code(s): R18.8 - OTHER ASCITES (7) Rectal adenocarcinoma Code(s): C20 - MALIGNANT NEOPLASM OF RECTUM Assessment/Plan IV ABX ID CONSULT SURGERY EVAL GI EVAL PAIN CONTROL PPI DVT PROPHYLAXIS
[2017-07-10] MEDS: oxyCODONE HCL 5 MG TABLET PO PRN (22:02)
--- NOTE | 2017-07-10 22:53 | CONSULT ---
Consult - text type - Consultation Consultation Note: 56 yo male PMH HTN, T3N1 rectal cancer diagnosed 12/2015 (in [place]) had chemo and RT and s/p Low anterior ressection on 06/2016. He had developed an abscess post op. and needed IR drainage. Patient comes to the ED complaining of vomiting and periumbilical and LRQ umbilical pain. He reported feeling dizzy for the past 2 days that prompted his visit. He has had mid abdominal pain for the last 2 weeks. He had an abdominal wall abscess in 03/2017. He did not notice an associated change in ostomy output. He is having normal formed and loose BM in the colostomy . He denies nausea and vomiting. He denies fever and chills. - Past Medical History Cardiovascular: Yes: HTN Gastrointestinal: Yes: Cancer (rectal cancer stage 3) Infectious Disease: Yes: Other (intra-abdominal abscess) - Past Surgical History Past Surgical History: Yes: Colectomy, Colostomy - Smoking History Smoking history: Never smoked - Allergies Allergies/Adverse Reactions: Allergies Allergy/AdvReac Type Severity Reaction Status Date / Time No Known Allergies Allergy Verified 07/09/17 10:19 - Home Medications Home Medications: Ambulatory Orders Unobtainable [Unobtainable] 07/09/17 Physical Examination Vital Signs: Vital Signs Temperature 98.4 F 07/10/17 14:28 Pulse Rate 92 H 07/10/17 14:28 Respiratory Rate 16 07/10/17 14:28 Blood Pressure 131/56 07/10/17 14:28 O2 Sat by Pulse Oximetry (%) 98 07/10/17 10:00 HENT: Yes: WNL Neck: Yes: WNL Cardiovascular: Yes: WNL Respiratory: Yes: WNL Gastrointestinal: Yes: Other (OSTOMY , TENDER) Peripheral Pulses WNL: Yes Integumentary: Yes: WNL Wound/Incision: Yes: Clean/Dry Neurological: Yes: WNL ...Motor Strength: WNL Lbs reviewed A/P 56 y/o patient with h/o T3N1 rectal cancer diagnosed 02/19, s/p neoadjuvant chemo /RT follwed by surgery in 06/22. Had N1c disease at surgery in [place]. Received 1 cycle of FOLFOX in 08/23, developed rectal abscess,another cycle in He left [place] and came here in 12/21. Received C3 in 12/21. He then shifted care to [facility]. Ostomy reversal was attempted there and aborted. Now concern for carcinmatosis, hydronephrosis. Has been followed by Dr. Kajal Doss at [facility]. Recently attempted to resume chemotherapy but was hypertensive and did not receive chemo On levaquin/flagyl/protonix has been seen by urology for hydronephrosis patient very upset about the recurrence. Will need to f/u outpatient with Dr. Doss, his oncologist
[2017-07-11] MEDS: METRONIDAZOLE 500 MG PREMIXED 500 MG/100 ML MG IVPB SCH ×3 (02:13→17:16)
[2017-07-11] MEDS: D5-1/2NS+20 MEQ KCL - 20 MEQ/1,000 ML INFUS.BAG IV SCH ×2 (02:14→09:31)
[2017-07-11] MEDS: oxyCODONE HCL 5 MG TABLET PO PRN ×2 (05:10→14:57)
[2017-07-11 08:05] LABS: ALBUMIN 3.3 g/dl (3.4-5.0); ANION GAP 9 (8-16); CALCIUM 8.9 mg/dL (8.5-10.1); CO2 30 mmol/L (21-32)
[2017-07-11 08:08] LABS: ALK PHOS 55 U/L (45-117); BILIRUBIN,TOTAL 0.6 mg/dL (0.2-1.0); CREATININE 1.1 mg/dL (0.7-1.3); GLUCOSE,RANDOM 127 mg/dL (74-106); SGOT/AST 19 U/L (15-37); SGPT/ALT 24 U/L (12-78); TOT PROT 6.7 g/dl (6.4-8.2)
--- NOTE | 2017-07-11 08:09 | CON.GI ---
Consult Consult Specialty:: GI Reason for Consultation:: nausea, hx of rectal ca, abnormal CT a/P - History of Present Illness History of Present Illness: Chart reviewed. Consultations noted. A 56 yom, HTN, T3N1 rectal cancer diagnosed 12/2015. Chemo, RT and low anterior ressection on 06/2016 compicated by perez, requiring IR drainage Admitted via ED for lightheadedness and nausea of 2 days duration. Onset soon after taking, new to him, 20 mg Oxyconting prescribed by his oncologist. Also reports tenderness around lower abdominal midline scar for the last 2 weeks. Normal colostomy output and contents. Reports no dysphagia, odynophagia, hematemesis, blood, or melena in colostomy bag. Denies fever, chill, jaundice. A CT a/p with IV contrast revealed thickened small bowel loops in lower abdomen/ pelvis, small amounts if free fluid, pelvic masses (4x3 cm) in the area of surgery, left hydronephrosis. CEA elevated. - History Source History Provided By: Patient, Medical Record - Past Medical History Cardio/Vascular: Yes: HTN Gastrointestinal: Yes: Cancer (rectal cancer stage 3) Infectious Disease: Yes: Other (intra-abdominal abscess) - Past Surgical History Past Surgical History: Yes: Colectomy, Colostomy - Alcohol/Substance Use Hx Alcohol Use: No - Smoking History Smoking history: Never smoked Have you smoked in the past 12 months: No - Social History Usual Living Arrangement: Alone History of Recent Travel: No Home Medications - Allergies Allergies/Adverse Reactions: Allergies Allergy/AdvReac Type Severity Reaction Status Date / Time No Known Allergies Allergy Verified 07/09/17 10:19 - Home Medications Home Medications: Ambulatory Orders Unobtainable [Unobtainable] 07/09/17 Family Disease History - Family Disease History Family History: Unremarkable (non-contributory) Review of Systems Findings/Remarks: please refer to HPI, H&P, ED records Physical Exam-GI Vital Signs: Vital Signs Temperature 98.1 F 07/11/17 05:55 Pulse Rate 82 07/11/17 05:55 Respiratory Rate 20 07/11/17 05:55 Blood Pressure 144/98 07/11/17 05:55 O2 Sat by Pulse Oximetry (%) 99 07/10/17 22:00 Constitutional: Yes: No Distress, Calm Eyes: Yes: Conjunctiva Clear HENT: Yes: Atraumatic Neck: Yes: Supple Cardiovascular: Yes: Regular Rate and Rhythm Respiratory: Yes: Regular Gastrointestinal Inspection: No: Ascites, Distention ...Palpate: Yes: Guarding, Soft, Tenderness (scar area). No: Firm/Rigid ...Percussion: No: Fluid Wave Labs: CBC, BMP 07/10/17 06:40 INR, PTT INR 1.12 (0.82-1.09) 07/09/17 10:28 Abnormal Lab Results 07/10/17 07/11/17 06:40 07:21 Random Glucose 127 H Albumin 3.3 L Carcinoembryonic Ag 9 .0 H CBCD WBC 8.9 K/mm3 (4.0-10.0) D 07/10/17 06:40 RBC 4.76 M/mm3 (4.00-5.60) 07/10/17 06:40 Hgb 13.1 GM/dL (11.7-16.9) D 07/10/17 06:40 Hct 38.8 % (35.4-49) 07/10/17 06:40 MCV 81.5 fl (80-96) 07/10/17 06:40 MCHC 33.7 g/dl (32.0-35.9) 07/10/17 06:40 RDW 14.9 % (11.9-15.9) 07/10/17 06:40 Plt Count 222 K/MM3 (134-434) D 07/10/17 06:40 MPV 7.8 fl (7.5-11.1) 07/10/17 06:40 CMP Sodium 138 mmol/L (136-145) 07/11/17 07:21 Potassium 3.5 mmol/L (3.5-5.1) 07/11/17 07:21 Chloride 99 mmol/L (98-107) 07/11/17 07:21 Carbon Dioxide 30 mmol/L (21-32) 07/11/17 07:21 Anion Gap 9 (8-16) 07/11/17 07:21 BUN 12 mg/dL (7-18) 07/11/17 07:21 Creatinine 1.1 mg/dL (0.7-1.3) 07/11/17 07:21 Creat Clearance w eGFR > 60 (>60) 07/11/17 07:21 Calcium 8.9 mg/dL (8.5-10.1) 07/11/17 07:21 Total Bilirubin 0.6 mg/dL (0.2-1.0) 07/11/17 07:21 AST 19 U/L (15-37) 07/11/17 07:21 ALT 24 U/L (12-78) 07/11/17 07:21 Alkaline Phosphatase 55 U/L (45-117) 07/11/17 07:21 Total Protein 6.7 g/dl (6.4-8.2) 07/11/17 07:21 Albumin 3.3 g/dl (3.4-5.0) L 07/11/17 07:21 Imaging - Results Cat Scan: Report Reviewed Problem List - Problems (1) Abnormal abdominal CT scan Code(s): R93.5 - ABN FINDINGS ON DX IMAGING OF ABD REGIONS, INC RETROPERITON (2) Rectal adenocarcinoma Code(s): C20 - MALIGNANT NEOPLASM OF RECTUM Assessment/Plan Given the CT findings and elevateed CEA, suspect rectal adenocarcinoma recurrence. No signs of GIT obstruction, or active bleeding. The patient has normal colostomy output and wants to eat. Complete urology work up Previous deit as tolerated, or as per Urology work up results Follow up with his oncology team as soon as possible agree with oxycodone Antiemetics PRN AC meals Will follow Discussed with the patient.
--- NOTE | 2017-07-11 09:03 | PN ---
Progress Note, Physician Chief Complaint: abdominal pain History of Present Illness: 56 yo male PMH HTN, rectal cancer likely recurrence with carcinomatosis. Seen by urology and oncology. Scheduled for a NM renal perfusion scan. Abdominal pain is just the same. Comfortable with out being examined. He is tolerating a clear liquid diet and having usual ostomy output (pasty brown stool, half full this morning). He reports feeling improved compared to yesterday and dizziness has resolved. - Current Medication List Current Medications: Active Medications Amlodipine Besylate (Norvasc -) 5 mg PO DAILY [facility] Last Admin: 07/10/17 15:34 Dose: 5 mg Metronidazole (Flagyl 500mg Premixed Ivpb -) 500 mg in 100 mls @ 100 mls/hr IVPB Q8H-IV [facility] Last Admin: 07/11/17 02:13 Dose: 100 mls/hr Levofloxacin (Levaquin 500 Mg Premixed Ivpb -) 500 mg in 100 mls @ 100 mls/hr IVPB DAILY [facility] Last Admin: 07/10/17 10:00 Dose: 100 mls/hr Potassium Chloride/Dextrose/Sod Cl (D5-1/2ns+20 Meq Kcl -) 20 meq in 1,000 mls @ 100 mls/hr IV ASDIR [facility] Last Admin: 07/11/17 02:14 Dose: 100 mls/hr Ondansetron HCl (Zofran Injection) 4 mg IVPUSH Q4H PRN PRN Reason: NAUSEA AND/OR VOMITING Last Admin: 07/10/17 16:40 Dose: 4 mg Oxycodone HCl (Roxicodone -) 15 mg PO Q6H PRN PRN Reason: PAIN Last Admin: 07/11/17 05:10 Dose: 15 mg Pantoprazole Sodium (Protonix Iv) 40 mg IVPUSH BID [facility] Last Admin: 07/10/17 22:02 Dose: 40 mg - Objective Vital Signs: Vital Signs Temperature 98.1 F 07/11/17 05:55 Pulse Rate 82 07/11/17 05:55 Respiratory Rate 20 07/11/17 05:55 Blood Pressure 144/98 07/11/17 05:55 O2 Sat by Pulse Oximetry (%) 99 07/10/17 22:00 Vital Signs Period Temp Pulse Resp BP Sys/Glass Pulse Ox Last 24 Hr 97.9 F-98.4 F 82-94 16-20 131-152/56-98 98-99 Intake & Output 07/10/17 07/11/17 07/11/17 23:59 07:59 15:59 Intake Total 1400 1400 Balance 1400 1400 Intake: IV 600 1200 D5-1/2NS+20 MEQ KCL - 20 600 1200 meq In 1,000 ml @ 100 mls /hr IV ASDIR MAT Rx#: [id number] IVPB 700 100 Oral 100 100 Other: Voiding Method Urinal # Unmeasured Voids Void 1 1 Constitutional: Yes: Well Nourished, No Distress, Calm Eyes: Yes: Conjunctiva Clear, EOM Intact HENT: Yes: Atraumatic, Normocephalic Neck: Yes: Supple, Trachea Midline Cardiovascular: Yes: Regular Rate and Rhythm, S1, S2 Respiratory: Yes: Regular, CTA Bilaterally Gastrointestinal: Yes: Normal Bowel Sounds, Soft, Tenderness (mid abdomen adjacent to he stoma). No: Tenderness, Epigastrium, Tenderness, Rebound ...Rectal Exam: Yes: Deferred Genitourinary: No: CVA Tenderness - Left, CVA Tenderness - Right Musculoskeletal: No: Muscle Pain, Muscle Weakness Edema: No Peripheral Pulses WNL: Yes Peripheral Pulses: Left Radial: 2+, Right Radial: 2+, Left Doralis Pedis: 2+, Right Dorsalis Pedis: 2+ Integumentary: No: Jaundice, Rash Wound/Incision: Yes: Clean/Dry, Other (healed midline laparotomy) Neurological: Yes: Alert, Oriented Psychiatric: Yes: Alert, Oriented Labs: CBC, BMP 07/10/17 06:40 07/11/17 07:21 INR, PTT INR 1.12 (0.82-1.09) 07/09/17 10:28 Abnormal Lab Results 07/10/17 07/11/17 06:40 07:21 Random Glucose 127 H Albumin 3.3 L Carcinoembryonic Ag 9.0 H Problem List - Problems (1) Abdominal carcinomatosis Assessment/Plan: 56yo male with rectal cancer, left obstructive nephropathy, carcinomatosis CEA 9.0 s/p subtotal colectomy. Not currently obstructed or perforated. Tolerating diet with usual ostomy output. Diet as tolerated optimize nutrition appreciate urology recommendations Defer to medical oncology, there is no role for surgery at this time Family meeting to discuss goals of care Code(s): C76.2 - MALIGNANT NEOPLASM OF ABDOMEN (2) Intraabdominal fluid collection Code(s): R18.8 - OTHER ASCITES (3) Hydronephrosis due to obstruction of ureter Assessment/Plan: f/u NM renal perfusion scan Code(s): N13.2 - HYDRONEPHROSIS WITH RENAL AND URETERAL CALCULOUS OBSTRUCTION (4) Rectal adenocarcinoma Code(s): C20 - MALIGNANT NEOPLASM OF RECTUM (5) HTN (hypertension) Code(s): I10 - ESSENTIAL (PRIMARY) HYPERTENSION Qualifiers: Hypertension type: essential hypertension Qualified Code(s): I10 - Essential (primary) hypertension
[2017-07-11] MEDS: amLODIPine BESYLATE 5 MG TABLET (FP) PO SCH (09:32)
[2017-07-11] MEDS: LEVOFLOXACIN 500 MG IVPB 500 MG/100 ML BAG IVPB SCH (09:32)
[2017-07-11] MEDS: PANTOPRAZOLE SODIUM 40 MG VIAL IVPUSH SCH ×2 (09:33→22:33)
--- NOTE | 2017-07-11 14:06 | PN ---
Progress Note, Physician Chief Complaint: ASLEEP COMFORTABLE S/P RENAL STENTS - Current Medication List Current Medications: Active Medications Amlodipine Besylate (Norvasc -) 5 mg PO DAILY [facility] Last Admin: 07/11/17 09:32 Dose: 5 mg Metronidazole (Flagyl 500mg Premixed Ivpb -) 500 mg in 100 mls @ 100 mls/hr IVPB Q8H-IV [facility] Last Admin: 07/11/17 11:33 Dose: 100 mls/hr Levofloxacin (Levaquin 500 Mg Premixed Ivpb -) 500 mg in 100 mls @ 100 mls/hr IVPB DAILY [facility] Last Admin: 07/11/17 09:32 Dose: 100 mls/hr Potassium Chloride/Dextrose/Sod Cl (D5-1/2ns+20 Meq Kcl -) 20 meq in 1,000 mls @ 100 mls/hr IV ASDIR [facility] Last Admin: 07/11/17 09:31 Dose: Not Given Ondansetron HCl (Zofran Injection) 4 mg IVPUSH Q4H PRN PRN Reason: NAUSEA AND/OR VOMITING Last Admin: 07/10/17 16:40 Dose: 4 mg Oxycodone HCl (Roxicodone -) 15 mg PO Q6H PRN PRN Reason: PAIN Last Admin: 07/11/17 05:10 Dose: 15 mg Pantoprazole Sodium (Protonix Iv) 40 mg IVPUSH BID [facility] Last Admin: 07/11/17 09:33 Dose: 40 mg - Objective Vital Signs: Vital Signs Temperature 988.2 F H 07/11/17 09:30 Pulse Rate 80 07/11/17 09:30 Respiratory Rate 20 07/11/17 09:30 Blood Pressure 156/100 07/11/17 09:30 O2 Sat by Pulse Oximetry (%) 99 07/10/17 22:00 Constitutional: Yes: Moderate Distress Eyes: Yes: WNL HENT: Yes: WNL Neck: Yes: WNL Cardiovascular: Yes: WNL Respiratory: Yes: WNL Gastrointestinal: Yes: Tenderness, Other Genitourinary: Yes: Incontinence Musculoskeletal: Yes: Back Pain, Muscle Weakness Extremities: Yes: WNL Edema: No Peripheral Pulses WNL: Yes Integumentary: Yes: WNL Wound/Incision: Yes: Dressing Dry and Intact Neurological: Yes: Pre-Existing Deficit ...Motor Strength: WNL Psychiatric: Yes: Agitated Labs: CBC, BMP 07/10/17 06:40 07/11/17 07:21 INR, PTT INR 1.12 (0.82-1.09) 07/09/17 10:28 Problem List - Problems (2) Acute abdomen Code(s): R10.0 - ACUTE ABDOMEN (3) HTN (hypertension) Code(s): I10 - ESSENTIAL (PRIMARY) HYPERTENSION Qualifiers: Hypertension type: essential hypertension Qualified Code(s): I10 - Essential (primary) hypertension (4) Hernia Code(s): K46.9 - UNSPECIFIED ABDOMINAL HERNIA WITHOUT OBSTRUCTION OR GANGRENE (5) Hydronephrosis due to obstruction of ureter Code(s): N13.2 - HYDRONEPHROSIS WITH RENAL AND URETERAL CALCULOUS OBSTRUCTION (6) Intraabdominal fluid collection Code(s): R18.8 - OTHER ASCITES (7) Rectal adenocarcinoma Code(s): C20 - MALIGNANT NEOPLASM OF RECTUM Assessment/Plan S/P RENAL STENTS PAIN CONTROL LABS REVIEWED START MEALS AFTER STENT PLACEMENT OT RENALS OOB TO CHAIR
--- NOTE | 2017-07-11 14:59 | PN ---
Progress Note, Physician History of Present Illness: Pt with pain 5/10 in abdomen. Afebrile, without chills. Denies shortness of breath, cough, dysuria. Colostomy functional. No new complaints. - Current Medication List Current Medications: Active Medications Amlodipine Besylate (Norvasc -) 5 mg PO DAILY [facility] Last Admin: 07/11/17 09:32 Dose: 5 mg Metronidazole (Flagyl 500mg Premixed Ivpb -) 500 mg in 100 mls @ 100 mls/hr IVPB Q8H-IV [facility] Last Admin: 07/11/17 11:33 Dose: 100 mls/hr Levofloxacin (Levaquin 500 Mg Premixed Ivpb -) 500 mg in 100 mls @ 100 mls/hr IVPB DAILY [facility] Last Admin: 07/11/17 09:32 Dose: 100 mls/hr Potassium Chloride/Dextrose/Sod Cl (D5-1/2ns+20 Meq Kcl -) 20 meq in 1,000 mls @ 100 mls/hr IV ASDIR [facility] Last Admin: 07/11/17 09:31 Dose: Not Given Ondansetron HCl (Zofran Injection) 4 mg IVPUSH Q4H PRN PRN Reason: NAUSEA AND/OR VOMITING Last Admin: 07/10/17 16:40 Dose: 4 mg Oxycodone HCl (Roxicodone -) 15 mg PO Q6H PRN PRN Reason: PAIN Last Admin: 07/11/17 05:10 Dose: 15 mg Pantoprazole Sodium (Protonix Iv) 40 mg IVPUSH BID [facility] Last Admin: 07/11/17 09:33 Dose: 40 mg - Objective Vital Signs: Vital Signs Temperature 988.2 F H 07/11/17 09:30 Pulse Rate 80 07/11/17 09:30 Respiratory Rate 20 07/11/17 09:30 Blood Pressure 156/100 07/11/17 09:30 O2 Sat by Pulse Oximetry (%) 99 07/10/17 22:00 Constitutional: Yes: No Distress, Calm Neck: Yes: Supple Cardiovascular: Yes: Regular Rate and Rhythm Respiratory: Yes: CTA Bilaterally Gastrointestinal: Yes: Tenderness (periumbilical/lower abd pain with deep palpation), Other (colostomy) Genitourinary: Yes: WNL Extremities: Yes: WNL Integumentary: Yes: WNL Labs: CBC, BMP 07/10/17 06:40 07/11/17 07:21 INR, PTT INR 1.12 (0.82-1.09) 07/09/17 10:28 Microbiology 07/09/17 22:00 Urine - Urine Clean Catch Urine Culture - Final NO GROWTH OBTAINED 07/09/17 20:55 Blood - Peripheral Venous Blood Culture - Preliminary NO GROWTH OBTAINED AFTER 24 HOURS, INCUBATION TO CONTINUE FOR 4 DAYS. 07/09/17 20:55 Blood - Peripheral Venous Blood Culture - Preliminary NO GROWTH OBTAINED AFTER 24 HOURS, INCUBATION TO CONTINUE FOR 4 DAYS. - ....Imaging Cat Scan: Report Reviewed Problem List - Problems (1) Acute abdomen Code(s): R10.0 - ACUTE ABDOMEN (2) Hernia Code(s): K46.9 - UNSPECIFIED ABDOMINAL HERNIA WITHOUT OBSTRUCTION OR GANGRENE (3) Hydronephrosis due to obstruction of ureter Code(s): N13.2 - HYDRONEPHROSIS WITH RENAL AND URETERAL CALCULOUS OBSTRUCTION (4) Rectal adenocarcinoma Code(s): C20 - MALIGNANT NEOPLASM OF RECTUM Assessment/Plan St 3 Rectal CA CEA elevated CVA tenderness/ hydronephrosis blood cultures no growth so far urine cultures no growth leukocytosis resolved on empiric antibiotics awaiting renal scan continue antibiotics for now, will likely discontinue if remains stable
--- NOTE | 2017-07-11 16:54 | PN ---
Progress Note, Physician History of Present Illness: Pt seen and examined at bedside. He is awake and alert. - Current Medication List Current Medications: Active Medications Amlodipine Besylate (Norvasc -) 5 mg PO DAILY [facility] Last Admin: 07/11/17 09:32 Dose: 5 mg Metronidazole (Flagyl 500mg Premixed Ivpb -) 500 mg in 100 mls @ 100 mls/hr IVPB Q8H-IV [facility] Last Admin: 07/11/17 11:33 Dose: 100 mls/hr Levofloxacin (Levaquin 500 Mg Premixed Ivpb -) 500 mg in 100 mls @ 100 mls/hr IVPB DAILY [facility] Last Admin: 07/11/17 09:32 Dose: 100 mls/hr Potassium Chloride/Dextrose/Sod Cl (D5-1/2ns+20 Meq Kcl -) 20 meq in 1,000 mls @ 100 mls/hr IV ASDIR [facility] Last Admin: 07/11/17 09:31 Dose: Not Given Ondansetron HCl (Zofran Injection) 4 mg IVPUSH Q4H PRN PRN Reason: NAUSEA AND/OR VOMITING Last Admin: 07/10/17 16:40 Dose: 4 mg Oxycodone HCl (Roxicodone -) 15 mg PO Q6H PRN PRN Reason: PAIN Last Admin: 07/11/17 14:57 Dose: 15 mg Pantoprazole Sodium (Protonix Iv) 40 mg IVPUSH BID [facility] Last Admin: 07/11/17 09:33 Dose: 40 mg - Objective Vital Signs: Vital Signs Temperature 98.2 F 07/11/17 14:55 Pulse Rate 96 H 07/11/17 14:55 Respiratory Rate 16 07/11/17 14:55 Blood Pressure 154/106 07/11/17 14:55 O2 Sat by Pulse Oximetry (%) 94 L 07/11/17 10:00 Constitutional: Yes: Calm Eyes: Yes: Conjunctiva Clear HENT: Yes: Atraumatic Neck: Yes: Supple Cardiovascular: Yes: S1, S2 Respiratory: Yes: CTA Bilaterally Gastrointestinal: Yes: Soft Genitourinary: Yes: WNL Musculoskeletal: Yes: WNL Edema: No Neurological: Yes: Oriented Psychiatric: Yes: Oriented Labs: CBC, BMP 07/10/17 06:40 07/11/17 07:21 INR, PTT INR 1.12 (0.82-1.09) 07/09/17 10:28 Problem List - Problems (1) Acute abdomen Code(s): R10.0 - ACUTE ABDOMEN (2) HTN (hypertension) Code(s): I10 - ESSENTIAL (PRIMARY) HYPERTENSION Qualifiers: Hypertension type: essential hypertension Qualified Code(s): I10 - Essential (primary) hypertension (3) Hernia Code(s): K46.9 - UNSPECIFIED ABDOMINAL HERNIA WITHOUT OBSTRUCTION OR GANGRENE (4) Hydronephrosis due to obstruction of ureter Code(s): N13.2 - HYDRONEPHROSIS WITH RENAL AND URETERAL CALCULOUS OBSTRUCTION (5) Rectal adenocarcinoma Code(s): C20 - MALIGNANT NEOPLASM OF RECTUM Assessment/Plan Current Medications Generic Name Dose Route Start Last Admin Trade Name Freq PRN Reason Stop Dose Admin Amlodipine Besylate 5 mg 07/10/17 14:15 07/11/17 09:32 Norvasc - PO 5 mg DAILY [facility] Administration Metronidazole 500 mg in 100 mls @ 100 mls/hr 07/09/17 18:00 07/11/17 11:33 Flagyl 500mg Premixed Ivpb - IVPB 100 mls/hr Q8H-IV [facility] Administration Levofloxacin 500 mg in 100 mls @ 100 mls/hr 07/09/17 18:00 07/11/17 09:32 Levaquin 500 Mg Premixed Ivpb - IVPB 100 mls/hr DAILY [facility] Administration Potassium Chloride/Dextrose/Sod Cl 20 meq in 1,000 mls @ 100 mls/hr 07/10/17 08:00 07/11/17 09:31 D5-1/2ns+20 Meq Kcl - IV Not Given [facility] Ondansetron HCl 4 mg 07/09/17 17:48 07/10/17 16:40 Zofran Injection IVPUSH 4 mg Q4H PRN Administration NAUSEA AND/OR VOMITING Oxycodone HCl 15 mg 07/10/17 21:26 07/11/17 14:57 Roxicodone - PO 15 mg Q6H PRN Administration PAIN Pantoprazole Sodium 40 mg 07/09/17 18:00 07/11/17 09:33 Protonix Iv IVPUSH 40 mg BID [facility] Administration Laboratory Tests 07/11/17 07:21 Magnesium 2.0 Impression 1. dehydration 2. abdominal pain 3. HTN 4. rectal cancer 5. hydronephrosis 6. hypokalemia 7. abdominal hernia Plan - can give another 5 mg of norvasc - pt going for cysto today - renal function is improving - cont fluids for now - abx per ID - follow culturesl - will follow Dr Willams
[2017-07-11] MEDS ORDERED: amLODIPine BESYLATE 5 MG TABLET (FP) PO ONE (16:55)
[2017-07-11] MEDS ORDERED: ONDANSETRON 4 MG/2 ML VIAL ONE (19:40)
[2017-07-11] MEDS ORDERED: hydrALAZINE HCL 20 MG/ML VIAL ONE (19:41)
[2017-07-11] MEDS ORDERED: PROPOFOL 20 ML ONE (19:55)
[2017-07-11] MEDS ORDERED: SUCCINYLCHOLINE CHLORIDE 200 MG/10 ML VIAL ONE (19:55)
[2017-07-11] MEDS ORDERED: METOPROLOL TARTRATE 5 MG/5 ML VIAL ONE (20:12)
[2017-07-11] MEDS ORDERED: DEXAMETHASONE SOD PHOSPHATE 4 MG/1 ML VIAL ONE (20:30)
[2017-07-11] MEDS ORDERED: IOHEXOL 300 MG/ML INFUS..BTL IV ONE (20:43)
--- NOTE | 2017-07-11 20:44 | OP ---
Operative Note - Note: Operative Date: 07/11/17 Pre-Operative Diagnosis: bilateral hydronephrosis with history of metastatic rectal cancer Operation: cystoscopy/bilateral retrograde pyelogram/bilateral ureteroscopy/ bilateral ureteral stent placement Findings: high grade bilateral ureteral obstruction secondary to encasement by extraureteral process. Post-Operative Diagnosis: Same as Pre-op Surgeon: Soto Franklin Anesthesia: General Drains & Tubes with Location: bilateral 6fr/24cm ureteral stents
[2017-07-11] MEDS ORDERED: ONDANSETRON 4 MG/2 ML VIAL IVPUSH PRN ×2 (21:03→22:43)
[2017-07-11] MEDS ORDERED: PROMETHAZINE HCL 25 MG/1 ML VIAL IVPUSH PRN (21:03)
[2017-07-11] MEDS ORDERED: LACTATED RINGERS SOLUTION 1,000 ML IV SCH (21:15)
[2017-07-11] MEDS ORDERED: ACETAMINOPHEN INJECTION 100 ML IVPB ONE (22:34)
[2017-07-11] MEDS ORDERED: ACETAMINOPHEN 1000 MG/100 ML VIAL (NON FORMULARY) IVPB ONE ×2 (22:42→22:51)
[2017-07-11] MEDS ORDERED: D5-1/2NS+20 MEQ KCL - 20 MEQ/1,000 ML INFUS.BAG IV SCH (22:43)
[2017-07-12] MEDS: METRONIDAZOLE 500 MG PREMIXED 500 MG/100 ML MG IVPB SCH ×2 (02:17→09:43)
[2017-07-12] MEDS: oxyCODONE HCL 5 MG TABLET PO PRN ×3 (05:18→19:52)
[2017-07-12] MEDS: amLODIPine BESYLATE 5 MG TABLET (FP) PO SCH ×2 (08:07→09:54)
--- NOTE | 2017-07-12 08:11 | PN ---
Progress Note, Physician Chief Complaint: abdominal pain History of Present Illness: 56 yo male PMH HTN, rectal cancer likely recurrence with carcinomatosis. Seen by urology and oncology. Scheduled for a NM renal perfusion scan. Abdominal pain is now greatly improved following stent placement. He reports minor burning with urination. He is tolerating a clear liquid diet and having usual ostomy output (pasty brown stool, half full this morning). He reports feeling improved compared to yesterday and dizziness has resolved. No other complaints. - Current Medication List Current Medications: Active Medications Amlodipine Besylate (Norvasc -) [address] [facility] Last Admin: 07/12/17 08:07 Dose: 5 mg Fentanyl (Sublimaze Injection -) 50 mcg IVPUSH Q5M PRN PRN Reason: PAIN Last Admin: 07/11/17 21:45 Dose: 50 mcg Lactated Ringer's (Lactated Ringers Solution) 1,000 mls @ 125 mls/hr IV ASDIR [facility] Last Admin: 07/12/17 08:08 Dose: Not Given Potassium Chloride/Dextrose/Sod Cl (D5-1/2ns+20 Meq Kcl -) 20 meq in 1,000 mls @ 100 mls/hr IV [facility] Last Admin: 07/11/17 23:05 Dose: 100 mls/hr Levofloxacin (Levaquin 500 Mg Premixed Ivpb -) 500 mg in 100 mls @ 100 mls/hr IVPB DAILY [facility] Metronidazole (Flagyl 500mg Premixed Ivpb -) 500 mg in 100 mls @ 100 mls/hr IVPB Q8H-IV [facility] Last Admin: 07/12/17 02:17 Dose: 100 mls/hr Ondansetron HCl (Zofran Injection) 4 mg IVPUSH Q6H PRN PRN Reason: NAUSEA AND/OR VOMITING Ondansetron HCl (Zofran Injection) 4 mg IVPUSH Q4H PRN PRN Reason: NAUSEA AND/OR VOMITING Oxycodone HCl (Roxicodone -) 15 mg PO Q6H PRN PRN Reason: PAIN Last Admin: 07/12/17 05:18 Dose: 15 mg Pantoprazole Sodium (Protonix Iv) [address] [facility] Promethazine HCl (Phenergan Injection -) 12.5 mg IVPUSH Q6H PRN PRN Reason: NAUSEA-FOR RESCUE AFTER 15 MIN - Objective Vital Signs: Vital Signs Temperature 98.4 F 07/12/17 08:09 Pulse Rate 98 H 07/12/17 06:00 Respiratory Rate 18 07/12/17 08:09 Blood Pressure 164/100 07/12/17 08:09 O2 Sat by Pulse Oximetry (%) 98 07/11/17 23:10 Vital Signs Period Temp Pulse Resp BP Sys/Glass Pulse Ox Last 24 Hr 97.8 F-988.2 F 72-98 14-20 131-164/85-107 93-100 Constitutional: Yes: Well Nourished, No Distress, Calm Eyes: Yes: Conjunctiva Clear, EOM Intact HENT: Yes: Atraumatic, Normocephalic Neck: Yes: Supple, Trachea Midline Cardiovascular: Yes: Regular Rate and Rhythm, S1, S2 Respiratory: Yes: Regular, CTA Bilaterally Gastrointestinal: Yes: Normal Bowel Sounds, Soft. No: Tenderness, Tenderness, Epigastrium, Tenderness, Rebound Genitourinary: No: CVA Tenderness - Left, CVA Tenderness - Right Edema: No Peripheral Pulses WNL: Yes Peripheral Pulses: Left Doralis Pedis: 2+, Right Dorsalis Pedis: 2+ Neurological: Yes: Alert, Oriented Psychiatric: Yes: Alert, Oriented Labs: CBC, BMP 07/10/17 06:40 07/11/17 07:21 Problem List - Problems (1) Abdominal carcinomatosis Assessment/Plan: 56yo male with rectal cancer, left obstructive nephropathy, carcinomatosis CEA 9.0 s/p subtotal colectomy. Not currently obstructed or perforated. Tolerating diet with usual ostomy output. Diet as tolerated optimize nutrition Defer to medical oncology, there is no role for surgery at this time Family meeting to discuss goals of care He does not need followup with general surgery upon discharge Code(s): C76.2 - MALIGNANT NEOPLASM OF ABDOMEN (2) Intraabdominal fluid collection Code(s): R18.8 - OTHER ASCITES (3) Hydronephrosis due to obstruction of ureter Code(s): N13.2 - HYDRONEPHROSIS WITH RENAL AND URETERAL CALCULOUS OBSTRUCTION (4) Rectal adenocarcinoma Code(s): C20 - MALIGNANT NEOPLASM OF RECTUM (5) HTN (hypertension) Code(s): I10 - ESSENTIAL (PRIMARY) HYPERTENSION Qualifiers: Hypertension type: essential hypertension Qualified Code(s): I10 - Essential (primary) hypertension
[2017-07-12] MEDS: PANTOPRAZOLE SODIUM 40 MG VIAL IVPUSH SCH ×2 (09:47→22:15)
[2017-07-12] MEDS ORDERED: LEVOFLOXACIN 500 MG IVPB 500 MG/100 ML BAG IVPB SCH (10:00)
--- NOTE | 2017-07-12 10:00 | PN ---
Progress Note (short form) - Note Progress Note: Last Vital Signs Pt seen and examined chart reviewed all consult notes reviewed Pt feels well than the prior days O/E Constitutional: Yes: No Distress, Calm Neck: Yes: Supple Cardiovascular: Yes: Regular Rate and Rhythm Respiratory: Yes: CTA Bilaterally Gastrointestinal: Yes: (colostomy) Genitourinary: Yes: WNL Extremities: Yes: WNL Integumentary: Yes: WNL Temp Pulse Resp BP Pulse Ox 98.4 F 111 H 18 148/101 98 07/12/17 08:09 07/12/17 09:11 07/12/17 09:11 07/12/17 09:11 07/11/17 23:10 CBC, BMP 07/10/17 06:40 07/11/17 07:21 Current Medications Generic Name Dose Route Start Last Admin Trade Name Freq PRN Reason Stop Dose Admin Amlodipine Besylate 5 mg 07/12/17 10:00 07/12/17 09:54 Norvasc - PO Not Given DAILY [facility] Fentanyl 50 mcg 07/11/17 21:03 07/11/17 21:45 Sublimaze Injection - IVPUSH 50 mcg Q5M PRN Administration PAIN Lactated Ringer's 1,000 mls @ 125 mls/hr 07/11/17 21:15 07/12/17 08:08 Lactated Ringers Solution IV Not Given [facility] Potassium Chloride/Dextrose/Sod Cl 20 meq in 1,000 mls @ 100 mls/hr 07/11/17 22:43 07/11/17 23:05 D5-1/2ns+20 Meq Kcl - IV 100 mls/hr [facility] Administration Levofloxacin 500 mg in 100 mls @ 100 mls/hr 07/12/17 10:00 07/12/17 09:43 Levaquin 500 Mg Premixed Ivpb - IVPB 100 mls/hr DAILY [facility] Administration Metronidazole 500 mg in 100 mls @ 100 mls/hr 07/12/17 02:00 07/12/17 09:43 Flagyl 500mg Premixed Ivpb - IVPB 100 mls/hr Q8H-IV [facility] Administration Ondansetron HCl 4 mg 07/11/17 21:03 Zofran Injection IVPUSH Q6H PRN NAUSEA AND/OR VOMITING Ondansetron HCl 4 mg 07/11/17 22:43 Zofran Injection IVPUSH Q4H PRN NAUSEA AND/OR VOMITING Oxycodone HCl 15 mg 07/11/17 22:43 07/12/17 05:18 Roxicodone - PO 15 mg Q6H PRN Administration PAIN Pantoprazole Sodium 40 mg 07/12/17 10:00 07/12/17 09:47 Protonix Iv IVPUSH Not Given BID [facility] Promethazine HCl 12.5 mg 07/11/17 21:03 Phenergan Injection - IVPUSH Q6H PRN NAUSEA-FOR RESCUE AFTER 15 MIN Assessment/Plan: H/o T3N1 Rectal ca, s/p NACT/surgery. Now with likely recurrence Hydronephrosis s/p stent Patient family made arrangements for follow-up with his oncologist. Pt mentioned that he will follow-up on discharge. No other In patient oncological intervention
[2017-07-12] MEDS ORDERED: hydrALAZINE HCL 10 MG TABLET PO ONE (10:15)
--- NOTE | 2017-07-12 10:56 | PN ---
Progress Note, Physician Chief Complaint: AWAKE ALERT FEELING BETTER POST RENAL STENT - Current Medication List Current Medications: Active Medications Amlodipine Besylate (Norvasc -) 5 mg PO DAILY [facility] [place] Last Admin: 07/12/17 09:54 Dose: Not Given Fentanyl (Sublimaze Injection -) 50 mcg IVPUSH Q5M PRN PRN Reason: PAIN Last Admin: 07/11/17 21:45 Dose: 50 mcg Lactated Ringer's (Lactated Ringers Solution) 1,000 mls @ 125 mls/hr IV ASDIR [facility] [place] Last Admin: 07/12/17 08:08 Dose: Not Given Potassium Chloride/Dextrose/Sod Cl (D5-1/2ns+20 Meq Kcl -) 20 meq in 1,000 mls @ 100 mls/hr IV ASDIR [facility] [place] Last Admin: 07/11/17 23:05 Dose: 100 mls/hr Levofloxacin (Levaquin 500 Mg Premixed Ivpb -) 500 mg in 100 mls @ 100 mls/hr IVPB DAILY [facility] [place] Last Admin: 07/12/17 09:43 Dose: 100 mls/hr Metronidazole (Flagyl 500mg Premixed Ivpb -) 500 mg in 100 mls @ 100 mls/hr IVPB Q8H-IV [facility] Last Admin: 07/12/17 09:43 Dose: 100 mls/hr Ondansetron HCl (Zofran Injection) 4 mg IVPUSH Q6H PRN PRN Reason: NAUSEA AND/OR VOMITING Ondansetron HCl (Zofran Injection) 4 mg IVPUSH Q4H PRN PRN Reason: NAUSEA AND/OR VOMITING Oxycodone HCl (Roxicodone -) 15 mg PO Q6H PRN PRN Reason: PAIN Last Admin: 07/12/17 05:18 Dose: 15 mg Pantoprazole Sodium (Protonix Iv) 40 mg IVPUSH BID [facility] [place] Last Admin: 07/12/17 09:47 Dose: Not Given Promethazine HCl (Phenergan Injection -) 12.5 mg IVPUSH Q6H PRN PRN Reason: NAUSEA-FOR RESCUE AFTER 15 MIN - Objective Vital Signs: Vital Signs Temperature 98.4 F 07/12/17 08:09 Pulse Rate 111 H 07/12/17 09:11 Respiratory Rate 18 07/12/17 09:11 Blood Pressure 148/101 07/12/17 09:11 O2 Sat by Pulse Oximetry (%) 98 07/11/17 23:10 Constitutional: Yes: Mild Distress Eyes: Yes: WNL HENT: Yes: WNL Neck: Yes: WNL Cardiovascular: Yes: WNL Respiratory: Yes: WNL Gastrointestinal: Yes: Tenderness (COLOSTOMY) Genitourinary: Yes: WNL Musculoskeletal: Yes: Muscle Weakness Extremities: Yes: WNL Edema: No Peripheral Pulses WNL: Yes Integumentary: Yes: WNL Wound/Incision: Yes: Clean/Dry Neurological: Yes: WNL ...Motor Strength: WNL Psychiatric: Yes: WNL Labs: CBC, BMP 07/10/17 06:40 07/11/17 07:21 INR, PTT INR 1.12 (0.82-1.09) 07/09/17 10:28 Problem List - Problems (2) Acute abdomen Code(s): R10.0 - ACUTE ABDOMEN (3) HTN (hypertension) Code(s): I10 - ESSENTIAL (PRIMARY) HYPERTENSION Qualifiers: Hypertension type: essential hypertension Qualified Code(s): I10 - Essential (primary) hypertension (4) Hernia Code(s): K46.9 - UNSPECIFIED ABDOMINAL HERNIA WITHOUT OBSTRUCTION OR GANGRENE (5) Hydronephrosis due to obstruction of ureter Code(s): N13.2 - HYDRONEPHROSIS WITH RENAL AND URETERAL CALCULOUS OBSTRUCTION (6) Intraabdominal fluid collection Code(s): R18.8 - OTHER ASCITES (7) Rectal adenocarcinoma Code(s): C20 - MALIGNANT NEOPLASM OF RECTUM Assessment/Plan S/P RENAL STENTS FOR HYDRONEPHROSIS PAIN CONTROL LABS REVIEWED START MEALS AFTER STENT PLACEMENT OT RENALS OOB TO CHAIR BP CONTROL DC PLANNING TOMORROW
--- NOTE | 2017-07-12 11:12 | PN ---
Progress Note, Physician History of Present Illness: No events s/p b/l ureters stent. No complaints - Current Medication List Current Medications: Active Medications Amlodipine Besylate (Norvasc -) 5 mg PO DAILY [facility] Last Admin: 07/12/17 09:54 Dose: Not Given Fentanyl (Sublimaze Injection -) 50 mcg IVPUSH Q5M PRN PRN Reason: PAIN Last Admin: 07/11/17 21:45 Dose: 50 mcg Lactated Ringer's (Lactated Ringers Solution) 1,000 mls @ 125 mls/hr IV ASDIR [facility] Last Admin: 07/12/17 08:08 Dose: Not Given Potassium Chloride/Dextrose/Sod Cl (D5-1/2ns+20 Meq Kcl -) 20 meq in 1,000 mls @ 100 mls/hr IV ASDIR [facility] Last Admin: 07/11/17 23:05 Dose: 100 mls/hr Levofloxacin (Levaquin 500 Mg Premixed Ivpb -) 500 mg in 100 mls @ 100 mls/hr IVPB DAILY [facility] Last Admin: 07/12/17 09:43 Dose: 100 mls/hr Metronidazole (Flagyl 500mg Premixed Ivpb -) 500 mg in 100 mls @ 100 mls/hr IVPB Q8H-IV [facility] Last Admin: 07/12/17 09:43 Dose: 100 mls/hr Metoprolol Succinate (Toprol Xl -) 25 mg PO DAILY [facility] Ondansetron HCl (Zofran Injection) 4 mg IVPUSH Q6H PRN PRN Reason: NAUSEA AND/OR VOMITING Ondansetron HCl (Zofran Injection) 4 mg IVPUSH Q4H PRN PRN Reason: NAUSEA AND/OR VOMITING Oxycodone HCl (Roxicodone -) 15 mg PO Q6H PRN PRN Reason: PAIN Last Admin: 07/12/17 11:00 Dose: 15 mg Pantoprazole Sodium (Protonix Iv) 40 mg IVPUSH BID [facility] Last Admin: 07/12/17 09:47 Dose: Not Given Promethazine HCl (Phenergan Injection -) 12.5 mg IVPUSH Q6H PRN PRN Reason: NAUSEA-FOR RESCUE AFTER 15 MIN - Objective Vital Signs: Vital Signs Temperature 98.4 F 07/12/17 08:09 Pulse Rate 111 H 07/12/17 09:11 Respiratory Rate 18 07/12/17 09:11 Blood Pressure 148/101 07/12/17 09:11 O2 Sat by Pulse Oximetry (%) 98 07/11/17 23:10 Constitutional: Yes: No Distress, Calm Eyes: Yes: Conjunctiva Clear HENT: Yes: Atraumatic Neck: Yes: Supple Cardiovascular: Yes: Regular Rate and Rhythm Respiratory: Yes: Regular Gastrointestinal: Yes: Soft, Other (normal colostopy output). No: Tenderness Neurological: Yes: Alert, Oriented Labs: CBC, BMP 07/10/17 06:40 07/11/17 07:21 INR, PTT INR 1.12 (0.82-1.09) 07/09/17 10:28 Problem List - Problems (1) Abnormal abdominal CT scan Code(s): R93.5 - ABN FINDINGS ON DX IMAGING OF ABD REGIONS, INC RETROPERITON (2) Rectal adenocarcinoma Code(s): C20 - MALIGNANT NEOPLASM OF RECTUM Assessment/Plan deit as tolerated Follow up with his oncology team as soon as possible
[2017-07-12] MEDS ORDERED: PT OWN MED DRAWER 7, Y5N ONE (11:49)
[2017-07-12] MEDS: METOPROLOL SUCCINATE 25 MG TAB.SR.24H (FP) PO SCH (11:55)
--- NOTE | 2017-07-12 13:57 | OP ---
DATE OF OPERATION: 07/11/2017 PREOPERATIVE DIAGNOSIS: Bilateral hydronephrosis with poorly functioning left kidney. The patient is status post radiation therapy and prior surgery. PROCEDURE: Cystoscopy, bilateral retrograde pyelogram, bilateral ureteroscopy, bilateral ureteral stent placement. SURGEON: Tiffanie Avila MD ANESTHESIA: General. DESCRIPTION OF PROCEDURE: The patient is an unfortunate gentleman who is 56 years of age. He has a history of metastatic rectal cancer status post radiation therapy, chemotherapy, and multiple operations. The patient on renal scan has a left kidney with 23% function with bilateral hydronephrosis. The patient suffers from significant bilateral colic right greater than left. The patient was brought in the operating room and placed in the supine position on the operating room table. Anesthesia was administered, and the patient was placed in a dorsal lithotomy position. He is prepped and draped in the usual sterile manner. Cystoscopy is performed. No evidence of neoplasms noted within the bladder. Both ureteral orifices appeared normal. A right retrograde pyelogram is initially performed. A high-grade distal urethral stricture with a suggestion of external encasement by secondary to process is noted. Ureteroscopy is performed, and no evidence of malignancy is noted; however, ureteroscopy could not be done because of stricture of the distal aspect of the ureter. A wire is passed proximally at this time. With this accomplished, a right ureteral stent is placed utilizing the Seldinger technique. The same procedure is performed on the left side with the stent placed as well. The patient tolerated the procedure very well. There were no complications noted. DISPOSITION: To the recovery room. TIFFANIE AVILA M.D. [id number]
--- NOTE | 2017-07-12 14:06 | PN ---
Progress Note, Physician History of Present Illness: Pt seen and examined at bedside. He is awake and alert. He feels that abdominal pain is improved. - Current Medication List Current Medications: Active Medications Amlodipine Besylate (Norvasc -) 5 mg PO DAILY [facility] Last Admin: 07/12/17 09:54 Dose: Not Given Fentanyl (Sublimaze Injection -) 50 mcg IVPUSH Q5M PRN PRN Reason: PAIN Last Admin: 07/11/17 21:45 Dose: 50 mcg Lactated Ringer's (Lactated Ringers Solution) 1,000 mls @ 125 mls/hr IV ASDIR [facility] Last Admin: 07/12/17 08:08 Dose: Not Given Potassium Chloride/Dextrose/Sod Cl (D5-1/2ns+20 Meq Kcl -) 20 meq in 1,000 mls @ 100 mls/hr IV ASDIR [facility] Last Admin: 07/11/17 23:05 Dose: 100 mls/hr Levofloxacin (Levaquin 500 Mg Premixed Ivpb -) 500 mg in 100 mls @ 100 mls/hr IVPB DAILY [facility] Last Admin: 07/12/17 09:43 Dose: 100 mls/hr Metronidazole (Flagyl 500mg Premixed Ivpb -) 500 mg in 100 mls @ 100 mls/hr IVPB Q8H-IV [facility] Last Admin: 07/12/17 09:43 Dose: 100 mls/hr Metoprolol Succinate (Toprol Xl -) 25 mg PO DAILY [facility] Last Admin: 07/12/17 11:55 Dose: 25 mg Ondansetron HCl (Zofran Injection) 4 mg IVPUSH Q6H PRN PRN Reason: NAUSEA AND/OR VOMITING Ondansetron HCl (Zofran Injection) 4 mg IVPUSH Q4H PRN PRN Reason: NAUSEA AND/OR VOMITING Oxycodone HCl (Roxicodone -) 15 mg PO Q6H PRN PRN Reason: PAIN Last Admin: 07/12/17 11:00 Dose: 15 mg Pantoprazole Sodium (Protonix Iv) 40 mg IVPUSH BID [facility] Last Admin: 07/12/17 09:47 Dose: Not Given Promethazine HCl (Phenergan Injection -) 12.5 mg IVPUSH Q6H PRN PRN Reason: NAUSEA-FOR RESCUE AFTER 15 MIN - Objective Vital Signs: Vital Signs Temperature 98.4 F 07/12/17 08:09 Pulse Rate 111 H 07/12/17 09:11 Respiratory Rate 18 07/12/17 09:11 Blood Pressure 148/101 07/12/17 09:11 O2 Sat by Pulse Oximetry (%) 98 07/11/17 23:10 Constitutional: Yes: Calm Eyes: Yes: Conjunctiva Clear HENT: Yes: Atraumatic Neck: Yes: Supple Cardiovascular: Yes: S1, S2 Respiratory: Yes: CTA Bilaterally Gastrointestinal: Yes: Soft, Other (colostomy) Genitourinary: Yes: WNL Musculoskeletal: Yes: WNL Edema: No Neurological: Yes: Oriented Psychiatric: Yes: Oriented Labs: CBC, BMP 07/10/17 06:40 07/11/17 07:21 INR, PTT INR 1.12 (0.82-1.09) 07/09/17 10:28 Problem List - Problems (1) Acute abdomen Code(s): R10.0 - ACUTE ABDOMEN (2) HTN (hypertension) Code(s): I10 - ESSENTIAL (PRIMARY) HYPERTENSION Qualifiers: Hypertension type: essential hypertension Qualified Code(s): I10 - Essential (primary) hypertension (3) Hernia Code(s): K46.9 - UNSPECIFIED ABDOMINAL HERNIA WITHOUT OBSTRUCTION OR GANGRENE (4) Hydronephrosis due to obstruction of ureter Code(s): N13.2 - HYDRONEPHROSIS WITH RENAL AND URETERAL CALCULOUS OBSTRUCTION (5) Rectal adenocarcinoma Code(s): C20 - MALIGNANT NEOPLASM OF RECTUM Assessment/Plan Current Medications Generic Name Dose Route Start Last Admin Trade Name Freq PRN Reason Stop Dose Admin Amlodipine Besylate 5 mg 07/12/17 10:00 07/12/17 09:54 Norvasc - PO Not Given DAILY [facility] Fentanyl 50 mcg 07/11/17 21:03 07/11/17 21:45 Sublimaze Injection - IVPUSH 50 mcg Q5M PRN Administration PAIN Lactated Ringer's 1,000 mls @ 125 mls/hr 07/11/17 21:15 07/12/17 08:08 Lactated Ringers Solution IV Not Given ASDIR [facility] Potassium Chloride/Dextrose/Sod Cl 20 meq in 1,000 mls @ 100 mls/hr 07/11/17 22:43 07/11/17 23:05 D5-1/2ns+20 Meq Kcl - IV 100 mls/hr ASDIR MAT Administration Levofloxacin 500 mg in 100 mls @ 100 mls/hr 07/12/17 10:00 07/12/17 09:43 Levaquin 500 Mg Premixed Ivpb - IVPB 100 mls/hr DAILY [facility] Administration Metronidazole 500 mg in 100 mls @ 100 mls/hr 07/12/17 02:00 07/12/17 09:43 Flagyl 500mg Premixed Ivpb - IVPB 100 mls/hr Q8H-IV MAT Administration Metoprolol Succinate 25 mg 07/12/17 11:00 07/12/17 11:55 Toprol Xl - PO 25 mg DAILY [facility] Administration Ondansetron HCl 4 mg 07/11/17 21:03 Zofran Injection IVPUSH Q6H PRN NAUSEA AND/OR VOMITING Ondansetron HCl 4 mg 07/11/17 22:43 Zofran Injection IVPUSH Q4H PRN NAUSEA AND/OR VOMITING Oxycodone HCl 15 mg 07/11/17 22:43 07/12/17 11:00 Roxicodone - PO 15 mg Q6H PRN Administration PAIN Pantoprazole Sodium 40 mg 07/12/17 10:00 07/12/17 09:47 Protonix Iv IVPUSH Not Given BID MAT Promethazine HCl 12.5 mg 07/11/17 21:03 Phenergan Injection - IVPUSH Q6H PRN NAUSEA-FOR RESCUE AFTER 15 MIN Impression 1. dehydration 2. abdominal pain 3. HTN 4. rectal cancer 5. hydronephrosis 6. hypokalemia 7. abdominal hernia Plan - increase norvasc to 10 mg - metoprolol started - monitor bp - can give another 5 mg of norvasc now - pt had cysto yesterday - abx per ID - stop fluids - check bmp - will follow Dr Willams
--- NOTE | 2017-07-12 14:11 | PN ---
Progress Note, Physician History of Present Illness: Pt is feeling well. s/p b/l ureteral stent placement. Denies fever, chills, or abdominal pain at this time. - Current Medication List Current Medications: Active Medications Amlodipine Besylate (Norvasc -) 10 mg PO DAILY [facility] Amlodipine Besylate (Norvasc -) 5 mg PO ONCE ONE Stop: 07/12/17 14:07 Fentanyl (Sublimaze Injection -) 50 mcg IVPUSH Q5M PRN PRN Reason: PAIN Last Admin: 07/11/17 21:45 Dose: 50 mcg Lactated Ringer's (Lactated Ringers Solution) 1,000 mls @ 125 mls/hr IV ASDIR [facility] Last Admin: 07/12/17 08:08 Dose: Not Given Levofloxacin (Levaquin 500 Mg Premixed Ivpb -) 500 mg in 100 mls @ 100 mls/hr IVPB DAILY [facility] Last Admin: 07/12/17 09:43 Dose: 100 mls/hr Metronidazole (Flagyl 500mg Premixed Ivpb -) 500 mg in 100 mls @ 100 mls/hr IVPB Q8H-IV [facility] Last Admin: 07/12/17 09:43 Dose: 100 mls/hr Metoprolol Succinate (Toprol Xl -) 25 mg PO DAILY [facility] Last Admin: 07/12/17 11:55 Dose: 25 mg Ondansetron HCl (Zofran Injection) 4 mg IVPUSH Q6H PRN PRN Reason: NAUSEA AND/OR VOMITING Ondansetron HCl (Zofran Injection) 4 mg IVPUSH Q4H PRN PRN Reason: NAUSEA AND/OR VOMITING Oxycodone HCl (Roxicodone -) 15 mg PO Q6H PRN PRN Reason: PAIN Last Admin: 07/12/17 11:00 Dose: 15 mg Pantoprazole Sodium (Protonix Iv) 40 mg IVPUSH BID [facility] Last Admin: 07/12/17 09:47 Dose: Not Given Promethazine HCl (Phenergan Injection -) 12.5 mg IVPUSH Q6H PRN PRN Reason: NAUSEA-FOR RESCUE AFTER 15 MIN - Objective Vital Signs: Vital Signs Temperature 98.4 F 07/12/17 08:09 Pulse Rate 111 H 07/12/17 09:11 Respiratory Rate 18 07/12/17 09:11 Blood Pressure 148/101 12/06/17 09:11 O2 Sat by Pulse Oximetry (%) 98 07/11/17 23:10 Constitutional: Yes: No Distress Cardiovascular: Yes: Regular Rate and Rhythm Respiratory: Yes: CTA Bilaterally Gastrointestinal: Yes: Normal Bowel Sounds, Soft, Other (colostomy functional) Genitourinary: Yes: WNL Extremities: Yes: WNL Labs: CBC, BMP 07/10/17 06:40 07/11/17 07:21 INR, PTT INR 1.12 (0.82-1.09) 07/09/17 10:28 Problem List - Problems (1) Acute abdomen Code(s): R10.0 - ACUTE ABDOMEN (2) Hernia Code(s): K46.9 - UNSPECIFIED ABDOMINAL HERNIA WITHOUT OBSTRUCTION OR GANGRENE (3) Hydronephrosis due to obstruction of ureter Code(s): N13.2 - HYDRONEPHROSIS WITH RENAL AND URETERAL CALCULOUS OBSTRUCTION (4) Rectal adenocarcinoma Code(s): C20 - MALIGNANT NEOPLASM OF RECTUM Assessment/Plan St 3 Rectal CA CEA elevated CVA tenderness/ b/l hydronephrosis s/p ureteral stents placement blood cultures no growth so far urine cultures no growth leukocytosis resolved, afebrile d/c antibiotics at this point
[2017-07-12] MEDS ORDERED: amLODIPine BESYLATE 5 MG TABLET (FP) PO ONE (14:30)
[2017-07-13] MEDS: oxyCODONE HCL 5 MG TABLET PO PRN ×2 (04:07→13:23)
[2017-07-13 08:03] LABS: BASOPHIL 0.4 % (0-2.0); EOSINOPHIL 0.5 % (0-4.5); MCH 27.3 pg (25.7-33.7); MCHC 33.7 g/dl (32.0-35.9); MEAN PLT VOLUME 8.1 fl (7.5-11.1); NEUTROPHILS 77.6 % (42.8-82.8); PLATELET COUNT 235 K/MM3 (134-434); RDW 15.7 % (11.9-15.9); WHITE BLOOD COUNT 10.2 K/mm3 (4.0-10.0)
--- NOTE | 2017-07-13 08:51 | PN ---
Progress Note (short form) - Note Progress Note: POD #2 - s/p cystoscopy/stent placement under general anesthesia. VSS. Pt. doing well, sitting up comfortably in bed. No complaints. No apparent anesthetic complications noted. Continue current care.
[2017-07-13 09:04] LABS: ALBUMIN 3.5 g/dl (3.4-5.0); ALK PHOS 59 U/L (45-117); ANION GAP 12 (8-16); BILIRUBIN,TOTAL 0.4 mg/dL (0.2-1.0); CALCIUM 8.6 mg/dL (8.5-10.1); CO2 29 mmol/L (21-32); CREATININE 1.2 mg/dL (0.7-1.3); GLUCOSE,RANDOM 148 mg/dL (74-106); SGOT/AST 12 U/L (15-37); SGPT/ALT 21 U/L (12-78); TOT PROT 7.1 g/dl (6.4-8.2)
[2017-07-13] MEDS ORDERED: PT OWN MED DRAWER 7, Y5N ONE (09:32)
[2017-07-13] MEDS: PANTOPRAZOLE SODIUM 40 MG VIAL IVPUSH SCH ×2 (09:41→09:45)
[2017-07-13] MEDS: METOPROLOL SUCCINATE 25 MG TAB.SR.24H (FP) PO SCH (09:41)
[2017-07-13] MEDS ORDERED: amLODIPine BESYLATE 5 MG TABLET (FP) PO SCH (10:00)
[2017-07-13] MEDS ORDERED: KCL 10 MEQ IVPB 10 MEQ/100 ML INFUS.BAG IVPB SCH (10:00)
--- NOTE | 2017-07-13 10:05 | DS ---
Physical Examination Vital Signs: Vital Signs Temperature 98.2 F 07/13/17 06:35 Pulse Rate 96 H 07/13/17 06:35 Respiratory Rate 20 07/13/17 06:35 Blood Pressure 160/100 07/13/17 06:35 O2 Sat by Pulse Oximetry (%) 98 07/11/17 23:10 Findings/Remarks: AWAKE ALERT NAD BLOOD CX NEGATIVE Constitutional: Yes: No Distress Eyes: Yes: WNL HENT: Yes: WNL Neck: Yes: WNL Cardiovascular: Yes: WNL Respiratory: Yes: WNL, Other (COLOSTOMY) Gastrointestinal: Yes: WNL Renal/: Yes: WNL Musculoskeletal: Yes: WNL Extremities: Yes: WNL Edema: No Peripheral Pulses WNL: Yes Integumentary: Yes: WNL Wound/Incision: Yes: Clean/Dry Neurological: Yes: WNL ...Motor Strength: WNL Psychiatric: Yes: WNL Labs: CBC, BMP 07/13/17 06:00 07/13/17 06:00 Discharge Summary Reason For Visit: ACUTE ABDOMEN,HERNIA Current Active Problems Abdominal carcinomatosis (Acute) Abnormal abdominal CT scan (Acute) Acute abdomen (Acute) Colostomy care (Acute) HTN (hypertension) (Acute) Hernia (Acute) Hydronephrosis due to obstruction of ureter (Acute) Intraabdominal fluid collection (Acute) Rectal adenocarcinoma (Acute) Procedures: Principal: CYSTOSCOPY WITH RENAL STENTS Other Procedures: CT SCANS Hospital Course: ADMITTED ACUTE RENAL FAILURE, GI MALIGNANCY WITH FEVER, HTN, ABD PAIN, TREATED WITH RENAL STENTS, IV ABX , PAIN CONTROL. Condition: Fair - Instructions Diet, Activity, Other Instructions: LOW SALT DIET SEE DR FRITZ ON MondayJuly 9AM AT [address] [place] [address] OFFICE FOR LABS FOLLOW UP WITH ONCOLOGY IN NEXT 2-3 DAYS Referrals: Og Fritz MD [Primary Care Provider] - Disposition: VNS/HOME HEALTH CARE - Home Medications Comprehensive Discharge Medication List: Ambulatory Orders Unobtainable [Unobtainable] 07/09/17
--- NOTE | 2017-07-13 10:15 | PN ---
Progress Note (short form) - Note Progress Note: PATIENT NEEDS SENIOR CARE CARE TO ASSIST WITH COLOSTOMY CARE, HOME CARE, MED REMINDERS Problem List - Problems (2) Acute abdomen Code(s): R10.0 - ACUTE ABDOMEN (3) HTN (hypertension) Code(s): I10 - ESSENTIAL (PRIMARY) HYPERTENSION Qualifiers: Hypertension type: essential hypertension Qualified Code(s): I10 - Essential (primary) hypertension (4) Hernia Code(s): K46.9 - UNSPECIFIED ABDOMINAL HERNIA WITHOUT OBSTRUCTION OR GANGRENE (5) Hydronephrosis due to obstruction of ureter Code(s): N13.2 - HYDRONEPHROSIS WITH RENAL AND URETERAL CALCULOUS OBSTRUCTION (6) Intraabdominal fluid collection Code(s): R18.8 - OTHER ASCITES (7) Rectal adenocarcinoma Code(s): C20 - MALIGNANT NEOPLASM OF RECTUM
[2017-07-13] MEDS ORDERED: hydrALAZINE HCL 25 MG TABLET (FP) PO ONE ×2 (10:30→13:30)
[2017-07-13] MEDS ORDERED: LEVOFLOXACIN 500 MG TABLET (FP) PO ONE (10:45)
[2017-07-13] MEDS ORDERED: POTASSIUM CHLORIDE 10 MEQ in SODIUM CHLORIDE 100 ML IVPB ONE (10:45)
[2017-07-13] MEDS ORDERED: METOPROLOL SUCCINATE 25 MG TAB.SR.24H (FP) PO ONE (10:45)
[2017-07-13] MEDS ORDERED: POTASSIUM CHLORIDE TABS 20 MEQ TABLET.ER (FP) PO ONE (10:45)
--- NOTE | 2017-07-13 11:50 | PN ---
Progress Note, Physician History of Present Illness: Pt seen and examined at bedside. He is awake and alert. He feels that his abdominal pain is improved. - Current Medication List Current Medications: Active Medications Amlodipine Besylate (Norvasc -) 10 mg PO DAILY [facility] Last Admin: 07/13/17 09:41 Dose: 10 mg Fentanyl (Sublimaze Injection -) 50 mcg IVPUSH Q5M PRN PRN Reason: PAIN Last Admin: 07/11/17 21:45 Dose: 50 mcg Metoprolol Succinate (Toprol Xl -) 50 mg PO DAILY [facility] Ondansetron HCl (Zofran Injection) 4 mg IVPUSH Q6H PRN PRN Reason: NAUSEA AND/OR VOMITING Ondansetron HCl (Zofran Injection) 4 mg IVPUSH Q4H PRN PRN Reason: NAUSEA AND/OR VOMITING Oxycodone HCl (Roxicodone -) 15 mg PO Q6H PRN PRN Reason: PAIN Last Admin: 07/13/17 04:07 Dose: 15 mg Pantoprazole Sodium (Protonix Iv) 40 mg IVPUSH BID [facility] Last Admin: 07/13/17 09:45 Dose: Not Given Promethazine HCl (Phenergan Injection -) 12.5 mg IVPUSH Q6H PRN PRN Reason: NAUSEA-FOR RESCUE AFTER 15 MIN - Objective Vital Signs: Vital Signs Temperature 98.2 F 07/13/17 06:35 Pulse Rate 96 H 07/13/17 06:35 Respiratory Rate 20 07/13/17 06:35 Blood Pressure 160/100 07/13/17 06:35 O2 Sat by Pulse Oximetry (%) 98 07/11/17 23:10 Constitutional: Yes: Calm Eyes: Yes: Conjunctiva Clear HENT: Yes: Atraumatic Neck: Yes: Supple Cardiovascular: Yes: S1, S2 Respiratory: Yes: CTA Bilaterally Gastrointestinal: Yes: Soft, Other (colostomy) Genitourinary: Yes: WNL Musculoskeletal: Yes: WNL Edema: No Neurological: Yes: Oriented Psychiatric: Yes: Oriented Labs: CBC, BMP 07/13/17 06:00 07/13/17 06:00 INR, PTT INR 1.12 (0.82-1.09) 07/09/17 10:28 Problem List - Problems (1) Acute abdomen Code(s): R10.0 - ACUTE ABDOMEN (2) HTN (hypertension) Code(s): I10 - ESSENTIAL (PRIMARY) HYPERTENSION Qualifiers: Hypertension type: essential hypertension Qualified Code(s): I10 - Essential (primary) hypertension (3) Hernia Code(s): K46.9 - UNSPECIFIED ABDOMINAL HERNIA WITHOUT OBSTRUCTION OR GANGRENE (4) Hydronephrosis due to obstruction of ureter Code(s): N13.2 - HYDRONEPHROSIS WITH RENAL AND URETERAL CALCULOUS OBSTRUCTION (5) Rectal adenocarcinoma Code(s): C20 - MALIGNANT NEOPLASM OF RECTUM Assessment/Plan Current Medications Generic Name Dose Route Start Last Admin Trade Name Freq PRN Reason Stop Dose Admin Amlodipine Besylate 10 mg 07/13/17 10:00 07/13/17 09:41 Norvasc - PO 10 mg DAILY [facility] Administration Fentanyl 50 mcg 07/11/17 21:03 07/11/17 21:45 Sublimaze Injection - IVPUSH 50 mcg Q5M PRN Administration PAIN Metoprolol Succinate 50 mg 07/14/17 10:00 Toprol Xl - PO DAILY [facility] Ondansetron HCl 4 mg 07/11/17 21:03 Zofran Injection IVPUSH Q6H PRN NAUSEA AND/OR VOMITING Ondansetron HCl 4 mg 07/11/17 22:43 Zofran Injection IVPUSH Q4H PRN NAUSEA AND/OR VOMITING Oxycodone HCl 15 mg 07/11/17 22:43 07/13/17 04:07 Roxicodone - PO 15 mg Q6H PRN Administration PAIN Pantoprazole Sodium 40 mg 07/12/17 10:00 07/13/17 09:45 Protonix Iv IVPUSH Not Given BID MAT Promethazine HCl 12.5 mg 07/11/17 21:03 Phenergan Injection - IVPUSH Q6H PRN NAUSEA-FOR RESCUE AFTER 15 MIN Impression 1. dehydration 2. abdominal pain 3. HTN 4. rectal cancer 5. hydronephrosis 6. hypokalemia 7. abdominal hernia Plan - replace potassium - discussed with pmd, bp meds adjusted - pt to monitor bp at home as well - repeat bp after am meds - pt is going home today, can follow as outpt - will follow Dr Willams
--- NOTE | 2017-07-13 12:34 | PN ---
Progress Note, Physician History of Present Illness: Pt states he feels well. Remains afebrile, without specific complaints. Abd pain minimal. - Current Medication List Current Medications: Active Medications Amlodipine Besylate (Norvasc -) 10 mg PO DAILY [facility] Last Admin: 07/13/17 09:41 Dose: 10 mg Fentanyl (Sublimaze Injection -) 50 mcg IVPUSH Q5M PRN PRN Reason: PAIN Last Admin: 07/11/17 21:45 Dose: 50 mcg Metoprolol Succinate (Toprol Xl -) 50 mg PO DAILY [facility] Ondansetron HCl (Zofran Injection) 4 mg IVPUSH Q6H PRN PRN Reason: NAUSEA AND/OR VOMITING Ondansetron HCl (Zofran Injection) 4 mg IVPUSH Q4H PRN PRN Reason: NAUSEA AND/OR VOMITING Oxycodone HCl (Roxicodone -) 15 mg PO Q6H PRN PRN Reason: PAIN Last Admin: 07/13/17 04:07 Dose: 15 mg Pantoprazole Sodium (Protonix Iv) 40 mg IVPUSH BID [facility] Last Admin: 07/13/17 09:45 Dose: Not Given Promethazine HCl (Phenergan Injection -) 12.5 mg IVPUSH Q6H PRN PRN Reason: NAUSEA-FOR RESCUE AFTER 15 MIN - Objective Vital Signs: Vital Signs Temperature 98.5 F 07/13/17 08:05 Pulse Rate 89 07/13/17 08:05 Respiratory Rate 20 07/13/17 08:05 Blood Pressure 163/99 07/13/17 08:05 O2 Sat by Pulse Oximetry (%) 98 07/11/17 23:10 Constitutional: Yes: No Distress, Calm Neck: Yes: Supple Cardiovascular: Yes: Regular Rate and Rhythm Respiratory: Yes: Regular Gastrointestinal: Yes: Normal Bowel Sounds, Soft Genitourinary: Yes: WNL Neurological: Yes: Alert, Oriented Labs: CBC, BMP 07/13/17 06:00 07/13/17 06:00 INR, PTT INR 1.12 (0.82-1.09) 07/09/17 10:28 Problem List - Problems (1) Acute abdomen Code(s): R10.0 - ACUTE ABDOMEN (2) Hernia Code(s): K46.9 - UNSPECIFIED ABDOMINAL HERNIA WITHOUT OBSTRUCTION OR GANGRENE (3) Hydronephrosis due to obstruction of ureter Code(s): N13.2 - HYDRONEPHROSIS WITH RENAL AND URETERAL CALCULOUS OBSTRUCTION (4) Rectal adenocarcinoma Code(s): C20 - MALIGNANT NEOPLASM OF RECTUM Assessment/Plan St 3 Rectal CA CEA elevated CVA tenderness/ b/l hydronephrosis s/p ureteral stents placement - pt stable, afebrile, feels well - s/p empiric antibiotics, cultures negative for d/c planning
--- NOTE | 2017-07-13 13:47 | PN ---
Progress Note, Physician History of Present Illness: No events s/p b/l ureters stent. No complaints, no paion. Feels better after stents. - Current Medication List Current Medications: Active Medications Amlodipine Besylate (Norvasc -) 10 mg PO DAILY [facility] Last Admin: 07/13/17 09:41 Dose: 10 mg Fentanyl (Sublimaze Injection -) 50 mcg IVPUSH Q5M PRN PRN Reason: PAIN Last Admin: 07/11/17 21:45 Dose: 50 mcg Metoprolol Succinate (Toprol Xl -) 50 mg PO DAILY [facility] Ondansetron HCl (Zofran Injection) 4 mg IVPUSH Q6H PRN PRN Reason: NAUSEA AND/OR VOMITING Ondansetron HCl (Zofran Injection) 4 mg IVPUSH Q4H PRN PRN Reason: NAUSEA AND/OR VOMITING Oxycodone HCl (Roxicodone -) 15 mg PO Q6H PRN PRN Reason: PAIN Last Admin: 07/13/17 13:23 Dose: 15 mg Pantoprazole Sodium (Protonix Iv) 40 mg IVPUSH BID [facility] Last Admin: 07/13/17 09:45 Dose: Not Given Promethazine HCl (Phenergan Injection -) 12.5 mg IVPUSH Q6H PRN PRN Reason: NAUSEA-FOR RESCUE AFTER 15 MIN - Objective Vital Signs: Vital Signs Temperature 98.5 F 07/13/17 08:05 Pulse Rate 89 07/13/17 08:05 Respiratory Rate 20 07/13/17 08:05 Blood Pressure 163/99 07/13/17 08:05 O2 Sat by Pulse Oximetry (%) 98 07/11/17 23:10 Constitutional: Yes: No Distress, Calm Eyes: Yes: Conjunctiva Clear HENT: Yes: Atraumatic Neck: Yes: Supple Cardiovascular: Yes: Regular Rate and Rhythm Respiratory: Yes: Regular Gastrointestinal: Yes: Soft, Other (lose stool in colostomy bag). No: Melena, Tenderness Labs: CBC, BMP 07/13/17 06:00 07/13/17 06:00 INR, PTT INR 1.12 (0.82-1.09) 07/09/17 10:28 Problem List - Problems (1) Abnormal abdominal CT scan Code(s): R93.5 - ABN FINDINGS ON DX IMAGING OF ABD REGIONS, INC RETROPERITON (2) Rectal adenocarcinoma Code(s): C20 - MALIGNANT NEOPLASM OF RECTUM Assessment/Plan deit as tolerated Follow up with his oncology team as soon as possible
[2017-07-13 14:32] VITALS: BP 147/99; PULSE 115; TEMP 98.4
[2017-07-14] MEDS ORDERED: METOPROLOL SUCCINATE 50 MG TAB.SR.24H (FP) PO SCH (10:00)
== END 2017-07-13 15:07 | disposition home health service (06) | DRG 240 ==
LOC: JER 09:54 → JERBED 17:53 → J8W 20:30
PROVIDERS: ADMIT Family Medicine; ATTEND Family Medicine
PROC: 0T788DZ Dilation of Bilateral Ureters with Intraluminal Device, Via Natural or Artificial Opening Endoscopic (ICD-10-PCS; principal; 2017-07-11 17:30)
PROC: BT14ZZZ Fluoroscopy of Kidneys, Ureters and Bladder (ICD-10-PCS; 2017-07-11 17:30)
DX: C20 Malignant neoplasm of rectum (principal); N17.9 Acute kidney failure, unspecified; I10 Essential (primary) hypertension; R18.8 Other ascites; N13.2 Hydronephrosis with renal and ureteral calculous obstruction; N13.8 Other obstructive and reflux uropathy; D72.828 Other elevated white blood cell count; C76.2 Malignant neoplasm of abdomen; R10.0 Acute abdomen; N28.9 Disorder of kidney and ureter, unspecified; K45.8 Other specified abdominal hernia without obstruction or gangrene; E87.6 Hypokalemia; E86.0 Dehydration; R93.5 Abnormal findings on diagnostic imaging of other abdominal regions, including retroperitoneum; Z93.3 Colostomy status
CPT/HCPCS: 36415; 74177-TC; 74190-TC; 76000-TC; 78708-TC; 80053; 81003; 82378; 83605; 83690; 83735; 85025; 85027; 85610; 85651; 85730; 86140; 86850; 86900; 86901; 87040; 87086; 93005; 93010; 94760; 99284-25; A9562

== ENCOUNTER 2017-07-18 01:16 | Inpatient (IN) | payer OTHER ==
[2017-07-18] MEDS ORDERED: SODIUM CHLORIDE 1,000 ML IV STA ×3 (01:39→05:00)
--- NOTE | 2017-07-18 01:39 | PDOC ---
History of Present Illness - General History Source: Patient Exam Limitations: No Limitations - History of Present Illness Initial Comments: 07/18/17 02:18 The patient is a 56-year-old male with a significant past medical history of rectal cancer, HTN, and intra-abdominal abscess (03/2017), who presents to the emergency department with abdominal pain since 6pm last night. He states the abdominal pain is diffuse and severe. He reports associated nausea and vomiting. He states he is supposed to start cancer treatment in two days. The patient denies chest pain, shortness of breath, headache and dizziness. The patient denies fever, chills, diarrhea and constipation. The patient denies dysuria, frequency, urgency and hematuria. Allergies: NKDA Past Surgical History: colostomy (06/29/16) Social History: Unknown toxic habits PCP: Dr. Fritz <Maria Elena Block - Last Filed: 07/18/17 06:54> <Kaylah Frankel - Last Filed: 07/22/17 10:48> - General Chief Complaint: Pain Stated Complaint: ABD PAIN Time Seen by Provider: 07/18/17 01:39 Past History <Maria Elena Block - Last Filed: 07/18/17 06:54> - Past Medical History Cancer: Yes (Rectal Cancer) COPD: No HTN: Yes Hypercholesterolemia: Yes - Surgical History Abdominal Surgery: Yes (x3, Right Ostomy, colon resection) GI Surgery: Yes - Immunization History Immunization Up to Date: Yes - Suicide/Smoking/Psychosocial Hx Smoking History: Unknown if ever smoked Have you smoked in the past 12 months: No Information on smoking cessation initiated: No Hx Alcohol Use: No Drug/Substance Use Hx: No <Kaylah Frankel - Last Filed: 07/22/17 10:48> - Past Medical History Allergies/Adverse Reactions: Allergies Allergy/AdvReac Type Severity Reaction Status Date / Time phenol [From Chloraseptic] Allergy Severe Difficulty Verified 07/19/17 17:00 Breathing sodium phenolate Allergy Severe Difficulty Verified 07/19/17 17:00 [From Chloraseptic] Breathing Home Medications: Ambulatory Orders Amlodipine Besylate [Norvasc -] 10 mg PO DAILY #30 tablet 07/13/17 Losartan Potassium 50 mg PO DAILY #30 tablet 07/13/17 Metoprolol Succinate [Toprol XL -] 50 mg PO DAILY #30 tab.sr.24h 12/07/17 Pantoprazole Sodium [Protonix] 40 mg PO DAILY #30 tablet. 07/13/17 Review of Systems - Review of Systems Able to Perform ROS?: Yes Comments:: 07/18/17 02:18 GENERAL/CONSTITUTIONAL: No fever or chills. No weakness. HEAD, EYES, EARS, NOSE AND THROAT: No change in vision. No ear pain or discharge. No sore throat. CARDIOVASCULAR: No chest pain or shortness of breath. RESPIRATORY: No cough, wheezing, or hemoptysis. GASTROINTESTINAL: (+) Abdominal pain. (+) Nausea. (+) Vomiting. No diarrhea or constipation. GENITOURINARY: No dysuria, frequency, or change in urination. MUSCULOSKELETAL: No joint or muscle swelling or pain. No neck or back pain. SKIN: No rash NEUROLOGIC: No headache, vertigo, loss of consciousness, or change in strength/ sensation. ENDOCRINE: No increased thirst. No abnormal weight change. HEMATOLOGIC/LYMPHATIC: No anemia, easy bleeding, or history of blood clots. ALLERGIC/IMMUNOLOGIC: No hives or skin allergy. <Maria Elena Block - Last Filed: 07/18/17 06:54> *Physical Exam - Vital Signs Last Vital Signs Temp Pulse Resp BP Pulse Ox 124 H 14 160/113 95 07/18/17 01:37 07/18/17 01:37 07/18/17 01:37 07/18/17 01:37 <Maria Elena Block - Last Filed: 07/18/17 06:54> - Vital Signs Last Vital Signs Temp Pulse Resp BP Pulse Ox 124 H 14 160/113 95 07/18/17 01:37 07/18/17 01:37 07/18/17 01:37 07/18/17 01:37 - Physical Exam Comments: GENERAL: Awake, alert, and fully oriented. Appears extremely uncomfortable. HEAD: No signs of trauma EYES: PERRLA, EOMI, sclera anicteric, conjunctiva clear ENT: Auricles normal inspection, hearing grossly normal, nares patent, oropharynx clear without exudates. Dry mucosa NECK: Normal ROM, supple, no lymphadenopathy, JVD, or masses LUNGS: Breath sounds equal, clear to auscultation bilaterally. No wheezes, and no crackles HEART: Regular rate and rhythm, normal S1 and S2, no murmurs, rubs or gallops ABDOMEN: Diffusely tender, firm to palpation. +Hyperactive bowel sounds. + Guarding and rebound. Questionable mass RLQ. EXTREMITIES: Normal range of motion, no edema. No clubbing or cyanosis. No cords, erythema, or tenderness NEUROLOGICAL: Cranial nerves II through XII grossly intact. Normal speech, normal gait SKIN: Warm, Dry, normal turgor, no rashes or lesions noted. <Kaylah Frankel - Last Filed: 07/22/17 10:48> ED Treatment Course - LABORATORY CBC & Chemistry Diagram: 07/18/17 01:57 07/18/17 02:21 - ADDITIONAL ORDERS Additional order review: 07/18/17 01:57 RBC 5.25 MCV 83.3 MCHC 33.4 RDW 15.9 MPV 8.4 Neutrophils % 84.9 H Lymphocytes % 9.3 D Monocytes % 4.8 Eosinophils % 0.6 Basophils % 0.4 - RADIOLOGY Radiograph Interpretation: 07/18/17 06:54 EXAM: CT abdomen and pelvis with contrast HISTORY: Rule out small bowel obstruction COMPARISON: CT July 09, 2017 FINDINGS: IMPRESSION: Positive for high grade small bowel obstruction. There are multiple dilated loops of small bowel. Some of these bowel loops are feculent. There is ascites and mesenteric congestion associated with the bowel obstruction. Difficult to pinpoint the exact transition zone but it is felt to be well proximal to the stoma. Normal liver. Normal gallbladder. Normal spleen. Normal pancreas. Normal adrenal glands. Since the July 09 scan, bilateral double-J ureteral stents have been placed. There is improvement in the bilateral hydronephrosis. - Medications Given in the ED: ED Medications Discontinued Medications Generic Name Dose Route Start Last Admin Trade Name Yola PRN Reason Stop Dose Admin Fentanyl 50 mcg 07/18/17 01:56 07/18/17 02:10 Sublimaze Injection - IVPUSH 07/18/17 01:57 50 mcg ONCE ONE Administration Ondansetron HCl 4 mg 07/18/17 01:43 07/18/17 02:08 Zofran Injection IVPUSH 07/18/17 01:44 4 mg ONCE ONE Administration <Maria Elena Block - Last Filed: 07/18/17 06:54> - LABORATORY CBC & Chemistry Diagram: 07/22/17 06:00 07/22/17 06:00 <Kaylah Frankel - Last Filed: 07/22/17 10:48> Medical Decision Making - Medical Decision Making 07/18/17 07:[address] Mendoza at shift change. He has history of reactions to morphine in the past, has been given fentanyl for pain successfully in the ED x2. Found to have SBO on CT, was refusing NGT but now agrees to it. I have discussed with Dr. Fritz who accepts for admission. Also d/w Dr. Solano as per Dr. Fritz request, Dr. Hernandez is en route to evaluate. <Kaylah Frankel - Last Filed: 07/22/17 10:48> *DC/Admit/Observation/Transfer - Attestations Scribe Attestion: 07/18/17 02:19 Documentation prepared by Maria Elena Block, acting as general medical practitioner for Kaylah Frankel MD, /DO. <Maria Elena Block - Last Filed: 07/18/17 06:54> - Discharge Dispostion Admit: Yes <Kaylah Frankel - Last Filed: 07/22/17 10:48> Diagnosis at time of Disposition: Small bowel obstruction - Discharge Dispostion Condition at time of disposition: Guarded
[2017-07-18] MEDS ORDERED: ONDANSETRON 4 MG/2 ML VIAL IVPUSH ONE (01:43)
[2017-07-18] MEDS ORDERED: morphine CARPU-JECT 4 MG/1 ML DISP.SYRIN IVPUSH ONE (01:43)
[2017-07-18] MEDS ORDERED: ONDANSETRON 4 MG/2 ML VIAL ONE ×2 (01:57→07:42)
[2017-07-18 02:10] LABS: BASO % 0.4 % (0-2.0); EOS % 0.6 % (0-4.5); MCH 27.8 pg (25.7-33.7); MCHC 33.4 g/dl (32.0-35.9); MEAN CELL VOLUME 83.3 fl (80-96); MEAN PLT VOLUME 8.4 fl (7.5-11.1); NEUT % 84.9 % (42.8-82.8); PLATELET COUNT 363 K/MM3 (134-434); RDW 15.9 % (11.9-15.9); WHITE BLOOD COUNT 17.7 K/mm3 (4.0-10.0)
[2017-07-18 02:23] LABS: INR 1.04 (0.82-1.09); PROTHROMBIN TIME (PATIENT) 11.7 SEC (9.98-11.88)
[2017-07-18 03:27] LABS: ALBUMIN 3.8 g/dl (3.4-5.0); ANION GAP 7 (8-16); BILIRUBIN,TOTAL 0.4 mg/dL (0.2-1.0); CALCIUM 8.8 mg/dL (8.5-10.1); CO2 26 mmol/L (21-32); CREATININE 1.4 mg/dL (0.7-1.3); GLUCOSE,RANDOM 183 mg/dL (74-106); SGOT/AST 19 U/L (15-37); SGPT/ALT 24 U/L (12-78); TOT PROT 7.4 g/dl (6.4-8.2)
[2017-07-18 03:28] LABS: ALK PHOS 55 U/L (45-117)
--- NOTE | 2017-07-18 07:39 | CONSULT ---
Consult Consult Specialty:: general surgery Referred by:: william cuevas Reason for Consultation:: bowel obstruction - History of Present Illness Chief Complaint: abdominal pain and vomiting History of Present Illness: 56 yo male PMH HTN, stage 3 rectal cancer diagnosed 12/2015 (in [place]) had chemo and RT and s/p subtotal colectomy in 06/2016. He had another surgery for a bowel obstruction after the initial one. He reports that 3 months later ( in [facility] in [place], [place]) there as an attempted reversal that was aborted because of carcinomatosis. Recently discharged after having double-J stents placed for an obstructive uropathy from a likely recurrence (CEA elevated) on the left pelvic brim of the ureter. He was taking a course of levaquin. Patient returned last night reporting vomiting and severe abdominal in the LLQ after dinner. He had stuffed grape leaves, bbq chicken and oranges. He did not notice an associated change in ostomy output. He is having normal formed and loose BM in the colostomy and gas. He reports several episodes of vomiting mainly the food that he ate. He denies fever and chills. He was scheduled to start additional chemotherapy at [facility] 07/[address] Kajal Doss. We were asked to assess. - History Source History Provided By: Patient, Medical Record Limitations to Obtaining History: No Limitations - Past Medical History Cardio/Vascular: Yes: HTN Gastrointestinal: Yes: Cancer (rectal cancer stage 4, s/p subtotal colectomy, carcinomatosis ) - Past Surgical History Past Surgical History: Yes: Colectomy (subtotal colectomy ), Colostomy - Alcohol/Substance Use Hx Alcohol Use: No - Smoking History Smoking history: Unknown if ever smoked Have you smoked in the past 12 months: No - Social History Usual Living Arrangement: Alone Place of : [facility] History of Recent Travel: No Home Medications - Allergies Allergies/Adverse Reactions: Allergies Allergy/AdvReac Type Severity Reaction Status Date / Time No Known Allergies Allergy Verified 07/18/17 01:37 - Home Medications Home Medications: Ambulatory Orders Amlodipine Besylate [Norvasc -] 10 mg PO DAILY #30 tablet 07/13/17 Levofloxacin [Levaquin -] 500 mg PO DAILY #4 tablet 07/13/17 Losartan Potassium 50 mg PO DAILY #30 tablet 07/13/17 Metoprolol Succinate [Toprol XL -] 50 mg PO DAILY #30 tab.sr.24h 07/13/17 Pantoprazole Sodium [Protonix] 40 mg PO DAILY #30 tablet. 07/13/17 Review of Systems - Review of Systems Constitutional: denies: Chills, Fever Eyes: denies: Blurred Vision, Recent Change in Vision HENT: denies: Difficult Swallowing, Throat Pain Neck: denies: Lumps, Swollen Glands Cardiovascular: denies: Chest Pain, Palpitations Respiratory: denies: Cough, SOB Gastrointestinal: reports: Abdominal Pain, Bloating, Nausea, Vomiting Genitourinary: denies: Burning, Discharge Musculoskeletal: reports: Back Pain. denies: Muscle Pain, Muscle Weakness Integumentary: denies: Lesions, Rash Neurological: denies: Headache, Seizure Endocrine: denies: Unexplained Weight Gain, Unexplained Weight Loss Hematology/Lymphatic: denies: Easily Bruised, Excessive Bleeding Psychiatric: denies: Anxiety, Depression Physical Exam Vital Signs: Vital Signs Temperature Pulse Rate 98 H 07/18/17 06:59 Respiratory Rate 18 07/18/17 06:59 Blood Pressure 157/89 07/18/17 06:59 O2 Sat by Pulse Oximetry (%) 98 07/18/17 06:59 Vital Signs Period Temp Pulse Resp BP Sys/Glass Pulse Ox Last 24 Hr 98-124 14-18 157-160/89-113 95-98 Constitutional: Yes: Well Nourished, No Distress, Calm Eyes: Yes: Conjunctiva Clear, EOM Intact HENT: Yes: Atraumatic, Normocephalic Neck: Yes: Supple, Trachea Midline Cardiovascular: Yes: Regular Rate and Rhythm, S1, S2. No: Murmur Respiratory: Yes: Regular, CTA Bilaterally Gastrointestinal: Yes: Normal Bowel Sounds, Soft, Ascites, Distention, Tenderness (moderate tenderness in left lower quedrant.), Vomiting. No: Tenderness, Epigastrium, Tenderness, Rebound Edema: No Peripheral Pulses WNL: Yes Integumentary: No: Jaundice Neurological: Yes: Alert, Oriented Psychiatric: Yes: Alert, Oriented Labs: CBC, BMP WBC 17.7 K/mm3 (4.0-10.0) H D 07/18/17 01:57 RBC 5.25 M/mm3 (4.00-5.60) 07/18/17 01:57 Hgb 14.6 GM/dL (11.7-16.9) D 07/18/17 01:57 Hct 43.7 % (35.4-49) 07/18/17 01:57 MCV 83.3 fl (80-96) 07/18/17 01:57 MCH 27.8 pg (25.7-33.7) 07/18/17 01:57 MCHC 33.4 g/dl (32.0-35.9) 07/18/17 01:57 RDW 15.9 % (11.9-15.9) 07/18/17 01:57 Plt Count 363 K/MM3 (134-434) D 07/18/17 01:57 MPV 8.4 fl (7.5-11.1) 07/18/17 01:57 Neutrophils % 84.9 % (42.8-82.8) H 07/18/17 01:57 Lymphocytes % 9.3 % (8-40) D 07/18/17 01:57 Monocytes % 4.8 % (3.8-10.2) 07/18/17 01:57 Eosinophils % 0.6 % (0-4.5) 07/18/17 01:57 Basophils % 0.4 % (0-2.0) 07/18/17 01:57 Sodium 139 mmol/L (136-145) 07/18/17 02:21 Potassium 4.3 mmol/L (3.5-5.1) D 07/18/17 02:21 Chloride 106 mmol/L (98-107) D 07/18/17 02:21 Carbon Dioxide 26 mmol/L (21-32) 07/18/17 02:21 Anion Gap 7 (8-16) L 07/18/17 02:21 BUN 23 mg/dL (7-18) H 07/18/17 02:21 Creatinine 1.4 mg/dL (0.7-1.3) H 07/18/17 02:21 Creat Clearance w eGFR 52.24 (>60) 07/18/17 02:21 Random Glucose 183 mg/dL (74-106) H D 07/18/17 02:21 Calcium 8.8 mg/dL (8.5-10.1) 07/18/17 02:21 Total Bilirubin 0.4 mg/dL (0.2-1.0) 07/18/17 02:21 AST 19 U/L (15-37) D 07/18/17 02:21 ALT 24 U/L (12-78) 07/18/17 02:21 Alkaline Phosphatase 55 U/L (45-117) 07/18/17 02:21 Creatine Kinase Cancelled 07/18/17 01:57 Troponin I Cancelled 07/18/17 01:57 Total Protein 7.4 g/dl (6.4-8.2) 07/18/17 02:21 Albumin 3.8 g/dl (3.4-5.0) 07/18/17 02:21 Lipase Cancelled 07/18/17 01:57 Intake & Output 07/17/17 07/18/17 07/18/17 23:59 07:59 15:59 Weight 214 lb Other: Height 5 ft 9 in Body Mass Index (BMI) 31.6 Weight Measurement Method Est/Stated by Patient Abnormal Lab Results 07/18/17 07/18/17 01:57 02:21 WBC 17.7 H D Neutrophils % 84.9 H Anion Gap 7 L BUN 23 H Creatinine 1.4 H Random Glucose 183 H D Imaging - Results X-ray: Report Reviewed (ngt coiled in the stomach. no free air), Image Reviewed Cat Scan: Report Reviewed (small bowel obsturction, partial? transition in LLQ) , Image Reviewed (transition point in LLQ with relatively decompressed loops at the pelvic brim) Problem List - Problems (1) Small bowel obstruction Assessment/Plan: 56 yo male with 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 He has a small bowel obstruction and would prefer not to have any surgery. Family meeting to discuss goals of care is important at this point. He may not understand what happening as this is is second trip to the hospital in a short period of time, away from his treatment team (at [place]) that he is allowing to treat him. His prognosis is poor and options for care are limited. NPO and IVF hydration NGT decompression to LCWS - AXR show it coiled in the stomach empiric IV antibiotics - ID consult? he was on levaquin stat lactic acid Reviewed new CT scan with radiology Discussed surgical options with patient and his , He prefers to continued non-operatively. repeat labs in AM(type and screen, coags, CEA, prealbumin) Consider transfer for continuity of care with medical oncologist Dr. Doss Code(s): K56.609 - UNSP INTESTNL OBST, UNSP TO PARTIAL VERSUS COMPLETE OBST (2) Abdominal carcinomatosis Code(s): C76.2 - MALIGNANT NEOPLASM OF ABDOMEN (3) Intraabdominal fluid collection Code(s): R18.8 - OTHER ASCITES (4) ZAHRA (acute kidney injury) Code(s): N17.9 - ACUTE KIDNEY FAILURE, UNSPECIFIED (5) Hydronephrosis due to obstruction of ureter Code(s): N13.2 - HYDRONEPHROSIS WITH RENAL AND URETERAL CALCULOUS OBSTRUCTION (6) HTN (hypertension) Code(s): I10 - ESSENTIAL (PRIMARY) HYPERTENSION Qualifiers: Hypertension type: essential hypertension Qualified Code(s): I10 - Essential (primary) hypertension
[2017-07-18] MEDS ORDERED: HYDROmorphone HCL CARPU-JECT 1 MG/1 ML DISP.SYRIN ONE (07:41)
[2017-07-18] MEDS: HYDROmorphone HCL CARPU-JECT 2 MG/1 ML DISP.SYRIN IVPB PRN ×4 (07:47→23:31)
[2017-07-18] MEDS: DEXTROSE 5%-NORMAL SALINE 1,000 ML IV SCH ×2 (07:48→12:36)
[2017-07-18] MEDS: ONDANSETRON 4 MG/2 ML VIAL IVPB PRN (07:48)
[2017-07-18] MEDS ORDERED: LORazepam 2 MG/ML SDV VIAL IVPUSH ONE (08:09)
[2017-07-18] MEDS ORDERED: LIDOCAINE VISCOUS 2% ORAL/TOP 20 ML UNIT-DOSE CUP MM ONE (08:10)
[2017-07-18] MEDS ORDERED: TETRACAINE/BENZOCAINE/BUTAMBEN 20 GM SPR TP ONE (08:13)
[2017-07-18] MEDS ORDERED: LORazepam 2 MG/ML SDV VIAL ONE (08:24)
[2017-07-18] MEDS: HYDROmorphone HCL CARPU-JECT 1 MG/1 ML DISP.SYRIN IVPUSH ONE (09:21)
[2017-07-18] MEDS ORDERED: METOPROLOL TARTRATE 5 MG/5 ML VIAL ONE (09:54)
[2017-07-18] MEDS: METOPROLOL TARTRATE 5 MG/5 ML VIAL IVPUSH PRN ×2 (10:01→21:42)
[2017-07-18] MEDS ORDERED: cefOXitin SODIUM 2 GM VIAL (RESTRICTED TO ID) IVPB ONE (10:01)
[2017-07-18 12:06] LABS: URINE APPEARANCE CLEAR; URINE BILIRUBIN NEGATIVE (NEGATIVE); URINE BLOOD 2+ (NEGATIVE); URINE COLOR LTYELLOW; URINE GLUCOSE (UA) 1+ (NEGATIVE); URINE KETONE NEGATIVE (NEGATIVE); URINE NITRITE NEGATIVE (NEGATIVE); URINE UROBILINOGEN NEGATIVE mg/dL (0.2-1.0)
[2017-07-18 12:09] LABS: URINE LEUK ESTERASE 2+ (NEGATIVE); URINE PROTEIN 2+ (NEGATIVE)
[2017-07-18 12:10] LABS: URINE MUCUS RARE; URINE RBC 125 /hpf (0-3); URINE WBC 8 /hpf (3-5)
--- NOTE | 2017-07-18 13:47 | PN ---
Progress Note (short form) - Note Progress Note: ID Consult dictated Leukocytosis Bowel obstruction Metastatic colon cancer Obstructive uropathy s/p ureteral stents Obtain cultures Surgical evaluation Empiric cefoxitin
--- NOTE | 2017-07-18 14:34 | EKG ---
Test Reason : Blood Pressure : / mmHG Vent. Rate : 094 BPM Atrial Rate : 094 BPM P-R Int : 138 ms QRS Dur : 070 ms QT Int : 362 ms P-R-T Axes : 074 004 057 degrees QTc Int : 452 ms NORMAL SINUS RHYTHM LOW VOLTAGE QRS CANNOT RULE OUT ANTERIOR INFARCT , AGE UNDETERMINED ABNORMAL ECG WHEN COMPARED WITH ECG OF 09-JUL-2017 10:38, CRITERIA FOR INFERIOR INFARCT ARE NO LONGER PRESENT Confirmed by ALEE MENDES MD ([id number]) on 07/18/2017 2:34:35 PM Referred By: Confirmed By:ALEE MENDES MD
[2017-07-18] MEDS ORDERED: cefOXitin SODIUM 2 GM VIAL (RESTRICTED TO ID) IVPB SCH (15:00)
[2017-07-18] MEDS: CEFOXITIN SODIUM 2 GM in DEXTROSE 5%-WATER - 100 ML IVPB SCH ×2 (15:19→21:28)
--- NOTE | 2017-07-18 15:24 | HP ---
Admitting History and Physical - Primary Care Physician PCP: Og Fritz - Admission Chief Complaint: ABD PAIN History of Present Illness: 56 yo male PMH HTN, stage 3 rectal cancer diagnosed 12/2015 (in [place]) had chemo and RT and s/p subtotal colectomy in 06/2016. He had another surgery for a bowel obstruction after the initial one. He reports that 3 months later ( in [facility] in [place], [place]) there as an attempted reversal that was aborted because of carcinomatosis. Recently discharged after having double-J stents placed for an obstructive uropathy from a likely recurrence (CEA elevated) on the left pelvic brim of the ureter. He was taking a course of levaquin. Patient returned last night reporting vomiting and severe abdominal in the LLQ after dinner. He had stuffed grape leaves, bbq chicken and oranges. He did not notice an associated change in ostomy output. He is having normal formed and loose BM in the colostomy and gas. He reports several episodes of vomiting mainly the food that he ate. He denies fever and chills. He was scheduled to start additional chemotherapy at [facility] 07/[address] Kajal Doss. We were asked to assess. History Source: Patient, Medical Record Limitations to Obtaining History: No Limitations - Past Medical History Cardiovascular: Yes: HTN Gastrointestinal: Yes: Cancer (rectal cancer stage 4, s/p subtotal colectomy, carcinomatosis ) Infectious Disease: Yes: Other (intra-abdominal abscess) - Past Surgical History Past Surgical History: Yes: Colectomy (subtotal colectomy ), Colostomy - Smoking History Smoking history: Unknown if ever smoked Have you smoked in the past 12 months: No - Alcohol/Substance Use Hx Alcohol Use: No - Social History History of Recent Travel: No Home Medications - Allergies Allergies/Adverse Reactions: Allergies Allergy/AdvReac Type Severity Reaction Status Date / Time No Known Allergies Allergy Verified 07/18/17 01:37 - Home Medications Home Medications: Ambulatory Orders Amlodipine Besylate [Norvasc -] 10 mg PO DAILY #30 tablet 07/13/17 Losartan Potassium 50 mg PO DAILY #30 tablet 07/13/17 Metoprolol Succinate [Toprol XL -] 50 mg PO DAILY #30 tab.sr.24h 07/13/17 Pantoprazole Sodium [Protonix] 40 mg PO DAILY #30 tablet. 07/13/17 Review of Systems - Review of Systems Constitutional: reports: Loss of Appetite, Malaise, Weakness Eyes: reports: No Symptoms HENT: reports: No Symptoms Neck: reports: No Symptoms Cardiovascular: reports: No Symptoms Respiratory: reports: No Symptoms Gastrointestinal: reports: Abdominal Pain, Nausea, Vomiting Genitourinary: reports: No Symptoms Musculoskeletal: reports: No Symptoms Integumentary: reports: No Symptoms Neurological: reports: No Symptoms Endocrine: reports: No Symptoms Hematology/Lymphatic: reports: No Symptoms Psychiatric: reports: No Symptoms Physical Examination Vital Signs: Vital Signs Temperature 98.4 F 07/18/17 09:52 Pulse Rate 93 H 07/18/17 11:37 Respiratory Rate 18 07/18/17 13:51 Blood Pressure 113/97 07/18/17 11:37 O2 Sat by Pulse Oximetry (%) 97 07/18/17 13:51 Constitutional: Yes: Moderate Distress Eyes: Yes: WNL HENT: Yes: WNL Neck: Yes: WNL Cardiovascular: Yes: WNL Respiratory: Yes: WNL Gastrointestinal: Yes: Palpable Mass, Tenderness, Tenderness, Rebound, Other ( COLOSTOMY) Musculoskeletal: Yes: Muscle Weakness Extremities: Yes: Other Edema: No Peripheral Pulses WNL: Yes Integumentary: Yes: WNL Wound/Incision: Yes: Open to air Neurological: Yes: WNL ...Motor Strength: WNL Psychiatric: Yes: WNL Labs: CBC, BMP 07/18/17 01:57 07/18/17 02:21 Imaging - Results Cat Scan: Report Reviewed Problem List - Problems (1) ZAHRA (acute kidney injury) Code(s): N17.9 - ACUTE KIDNEY FAILURE, UNSPECIFIED (2) Small bowel obstruction Code(s): K56.609 - UNSP INTESTNL OBST, UNSP TO PARTIAL VERSUS COMPLETE OBST (3) Abdominal carcinomatosis Code(s): C76.2 - MALIGNANT NEOPLASM OF ABDOMEN (4) Abnormal abdominal CT scan Code(s): R93.5 - ABN FINDINGS ON DX IMAGING OF ABD REGIONS, INC RETROPERITON (5) Acute abdomen Code(s): R10.0 - ACUTE ABDOMEN (7) Rectal adenocarcinoma Code(s): C20 - MALIGNANT NEOPLASM OF RECTUM Assessment/Plan IV ABX REFUSED EXPLORATORY LAP PAIN CONTROL NGT FOR DECOMPRESSION
[2017-07-18 18:36] LABS: URINE LEUK ESTERASE NEGATIVE (NEGATIVE)
[2017-07-18 19:16] LABS: URINE APPEARANCE CLEAR; URINE BILIRUBIN NEGATIVE (NEGATIVE); URINE BLOOD 2+ (NEGATIVE); URINE COLOR LTYELLOW; URINE GLUCOSE (UA) 1+ (NEGATIVE); URINE KETONE NEGATIVE (NEGATIVE); URINE NITRITE NEGATIVE (NEGATIVE); URINE UROBILINOGEN NEGATIVE mg/dL (0.2-1.0)
[2017-07-18 19:20] LABS: URINE LEUK ESTERASE 1+ (NEGATIVE); URINE PROTEIN 1+ (NEGATIVE)
[2017-07-18 19:58] LABS: URINE BACTERIA RARE /hpf (NONE SEEN); URINE MUCUS RARE; URINE RBC 37 /hpf (0-3); URINE WBC 14 /hpf (3-5)
--- NOTE | 2017-07-18 20:27 | CONS ---
DATE OF CONSULTATION: DATE OF DICTATION: 07/18/2017 INFECTIOUS DISEASE CONSULTATION HISTORY OF PRESENT ILLNESS: The patient is a 56-year-old male with a history of stage 3 colorectal cancer evaluated for leukocytosis. He was admitted to the hospital with complaints of left lower quadrant abdominal pain, nausea, vomiting. He was admitted to the hospital where he was noted to have an elevated white blood cell count. CAT scan of the abdomen and pelvis was consistent with small bowel obstruction. He was seen in consultation by surgery. At the present time he complains of diffuse abdominal pain which is relieved with analgesics. He had nausea and vomiting, however has an NG tube in place at the present time. He reports having a bowel movement on the day prior to admission. He denies any fevers or chills. The patient was hospitalized at [facility] this month with obstructive uropathy. He underwent cystoscopy and bilateral ureteral stent placement. He denies any dysuria or hematuria. He had been treated empirically with Levaquin. PAST MEDICAL HISTORY: Positive for stage 3 colorectal CA with suspected abdominal carcinomatosis status post chemotherapy and radiation therapy, history of hypertension, obstructive uropathy status post bilateral ureteral stents, intraabdominal abscess. PAST SURGICAL HISTORY: Status post subtotal colectomy. ALLERGIES: No known allergies. MEDICATION: Norvasc, losartan, Toprol, Protonix. SOCIAL HISTORY: Nonsmoker, nondrinker. Lives at home with family members. SYSTEMS REVIEW: Neurologic: No loss of consciousness, seizure activity, or focal weakness. Cardiac: Negative chest pain or palpitations. Respiratory: Negative cough or sputum production. Gastrointestinal: As per HPI. Genitourinary: As per HPI. LABORATORY: White count 17.7, hemoglobin 43.7, platelet count 363, BUN 23, creatinine 1.4. Urinalysis: 8 white cells, lactic acid 1.8. PHYSICAL EXAMINATION: General: On exam, he is awake and alert. He is in moderate distress secondary to diffuse abdominal pain. Vital signs: Temperature 98.4, blood pressure 173/108, pulse 101 regular, respirations 18 per minute. HEENT: Sclerae anicteric. NG tube is in place. Cardiovascular: Heart sounds S1, S2. Respiratory: Lungs clear. Abdomen: Hypoactive bowel sounds. Abdomen is soft, mild, diffuse tenderness present. Colostomy is present. Extremities: Negative for edema. IMPRESSION: 1. Leukocytosis, multifactorial (leukemoid reaction secondary to bowel obstruction, possible sepsis). 2. Bowel obstruction. 3. Metastatic colon cancer. 4. Obstructive uropathy status post bilateral ureteral stents. Obtain cultures. Surgical evaluation. Empiric antibiotic coverage. 2 g IV piggyback every 6 hours pending sepsis workup. Will follow. Thank you for the kind referral. DANILO KIMBLE M.D. [id number]
[2017-07-18] MEDS ORDERED: PT OWN MED DRAWER 7, Y5N ONE (20:37)
[2017-07-18 22:27] LABS: URINE LEUK ESTERASE NEGATIVE (NEGATIVE)
[2017-07-18] MEDS ORDERED: PHENOL 177 ML SPRAY BOTTLE MM PRN (23:24)
[2017-07-19] MEDS ORDERED: methylPREDNISolone NA SUCC 125 MG/2 ML VIAL ONE (02:29)
[2017-07-19] MEDS ORDERED: EPINEPHrine 1:1,000 1 MG/1 ML - 30ML VIAL (INJECTION) ONE (02:33)
[2017-07-19] MEDS ORDERED: RACEPINEPHRINE IH SOL 2.25% 11.25 MG/0.5 ML VIAL IH ONE (02:33)
[2017-07-19] MEDS ORDERED: methylPREDNISolone NA SUCC 125 MG/2 ML VIAL IVPUSH ONE (02:34)
[2017-07-19] MEDS ORDERED: EPINEPHrine 1:1,000 0.3 MG/0.3 ML SYR IM ONE ×2 (02:36→06:19)
[2017-07-19] MEDS ORDERED: GLUCAGON 1 MG KIT IVPUSH ONE (02:42)
[2017-07-19] MEDS ORDERED: DEXAMETHASONE SOD PHOSPHATE 10 MG/1 ML VIAL IVPUSH ONE (02:47)
[2017-07-19] MEDS: ONDANSETRON 4 MG/2 ML VIAL IVPB PRN (03:00)
[2017-07-19] MEDS: CEFOXITIN SODIUM 2 GM in DEXTROSE 5%-WATER - 100 ML IVPB SCH ×4 (03:01→20:29)
--- NOTE | 2017-07-19 03:07 | HOSP ---
Subjective - Review of Symptoms Subjective: Pt. Seen at bedside for Choking upon exam Uvula extremely swollen 02 98%, able to spea, but feels foriegn senstation in throat Had sprayed Cephacol in throat 5 minutes prior 1.) Allergic Reaction w Uvular edema - Benadryl - Solu-Medrol, EPI - Stat Neck Xray - Pepcid - Glucagon - ENT called and spoken to [facility] - Accepted by ICU: CC time 35 minutes - Primary team to be notified Physical Examination Vital Signs: Vital Signs Temperature 98.1 F 07/18/17 20:00 Pulse Rate 102 H 07/18/17 21:42 Respiratory Rate 21 07/18/17 20:00 Blood Pressure 154/97 07/18/17 21:42 O2 Sat by Pulse Oximetry (%) 97 07/18/17 21:00 Labs: CBC, BMP 07/18/17 01:57 07/18/17 02:21
[2017-07-19] MEDS ORDERED: RACEPINEPHRINE IH SOL 2.25% 11.25 MG/0.5 ML VIAL IH SCH ×2 (03:15→18:15)
--- NOTE | 2017-07-19 03:40 | CONSULT ---
Consult Consult Specialty:: Pulmonary Critical Care Reason for Consultation:: C/f compromised airway - History of Present Illness Chief Complaint: SOB History of Present Illness: 56 yo male PMH HTN, stage 3 rectal cancer diagnosed 12/2015 s/p chemo and RT and s/p subtotal colectomy in 06/2016. 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 Pt presented yesterday c/o n/o and severe abdominal pain. Rapid response called overnight for "choking sensation" reported by patient. Pt sprayed Cepakol spray in this throat and 5 minutes later felt like something was stuck in his throat. During rapid response was given solumedrol/IMepi/ racemic epi/benadryl/pepcid/glucagon. As per report upon physical exam very swollen uvula noted, no drooling or desaturations reported. ENT consulted and recommended administering decadron as well. Pt now transferred to ICU for closer monitoring. ON arrival pt awake, no respiratory distress, no desaturations, no drooling. C/o something being stuck in this throat. Current Medications Chlorhexidine Gluconate (Hibiclens For Decolonization -) 1 applic TP HS MAT Epinephrine (S-2) 1 vial IH Q15H [facility] Stop: 07/19/17 18:16 Last Admin: 07/19/17 03:23 Dose: 1 vial Hydromorphone HCl (Dilaudid Injection -) 1 mg IVPB Q4H PRN PRN Reason: PAIN Last Admin: 07/18/17 23:31 Dose: 1 mg Dextrose/Sodium Chloride (D5-Ns -) 1,000 mls @ 83 mls/hr IV ASDIR MAT Last Admin: 07/18/17 12:36 Dose: 83 mls/hr Cefoxitin Sodium 2 gm/ (Dextrose) 100 mls @ 100 mls/hr IVPB Q6H-IV MAT Last Admin: 07/19/17 03:01 Dose: Not Given Famotidine (Pepcid 20 Mg/12 Ml Push) 20 mg in 12 mls @ 144 mls/hr IVPUSH BID MAT Metoprolol Tartrate (Lopressor Injection -) 5 mg IVPUSH Q6H PRN PRN Reason: HYPERTENSION Last Admin: 07/18/17 21:42 Dose: 5 mg Mupirocin (Bactroban Ointment (For Decolonization) -) 1 applic NS BID [facility] Stop: 07/24/17 09:59 Ondansetron HCl (Zofran Injection) 8 mg IVPB Q6H PRN PRN Reason: NAUSEA Last Admin: 07/19/17 03:00 Dose: 8 mg Phenol/Menthol (Chloraseptic -) 1 spray MM Q4H PRN Last Admin: 07/18/17 23:45 Dose: 1 spray - Past Medical History Cardio/Vascular: Yes: HTN Gastrointestinal: Yes: Cancer (rectal cancer stage 4, s/p subtotal colectomy, carcinomatosis ) Infectious Disease: Yes: Other (intra-abdominal abscess) - Past Surgical History Past Surgical History: Yes: Colectomy (subtotal colectomy ), Colostomy - Alcohol/Substance Use Hx Alcohol Use: No - Smoking History Smoking history: Unknown if ever smoked Have you smoked in the past 12 months: No - Social History Usual Living Arrangement: Alone History of Recent Travel: No Home Medications - Allergies Allergies/Adverse Reactions: Allergies Allergy/AdvReac Type Severity Reaction Status Date / Time No Known Allergies Allergy Verified 07/18/17 01:37 - Home Medications Home Medications: Ambulatory Orders Amlodipine Besylate [Norvasc -] 10 mg PO DAILY #30 tablet 07/13/17 Losartan Potassium 50 mg PO DAILY #30 tablet 07/13/17 Metoprolol Succinate [Toprol XL -] 50 mg PO DAILY #30 tab.sr.24h 07/13/17 Pantoprazole Sodium [Protonix] 40 mg PO DAILY #30 tablet. 07/13/17 Physical Exam Vital Signs: Vital Signs Temperature 98.1 F 07/18/17 20:00 Pulse Rate 102 H 07/18/17 21:42 Respiratory Rate 21 07/18/17 20:00 Blood Pressure 154/97 07/18/17 21:42 O2 Sat by Pulse Oximetry (%) 97 07/18/17 21:00 Cardiovascular: Yes: Regular Rate and Rhythm Respiratory: Yes: CTA Bilaterally Gastrointestinal: Yes: Normal Bowel Sounds, Soft Extremities: Yes: WNL Edema: No Neurological: Yes: WNL Labs: CBC, BMP 07/18/17 01:57 07/18/17 02:21 Assessment/Plan ?Allergic reaction C/f compromised airway -ENT consulted--> page overnight if no improvement or worsening -cont decadron -cont supplemental O2 -close monitoring of pulse oximetry -rest of the plan as per primary team JAIME Prince Critical Care time: 35 min
[2017-07-19] MEDS ORDERED: HYDROmorphone HCL CARPU-JECT 2 MG/1 ML DISP.SYRIN IVPB PRN (04:08)
[2017-07-19] MEDS: DEXTROSE 5%-NORMAL SALINE 1,000 ML IV SCH ×3 (04:23→17:56)
[2017-07-19] MEDS ORDERED: EPINEPHrine 1:1,000 - 30 MG/30 ML VIAL IM ONE (06:28)
[2017-07-19] MEDS ORDERED: EPINEPHrine/PF 1 MG/1 ML (1:1,000) AMPULE IM ONE (06:45)
[2017-07-19] MEDS ORDERED: FAMOTIDINE IV 20 MG/12 ML VIAL IVPUSH SCH ×2 (10:00→10:42)
[2017-07-19] MEDS ORDERED: MUPIROCIN 2% TOPICAL OINTMENT FOR DECOLONIZATION NS SCH ×2 (10:00→22:00)
--- NOTE | 2017-07-19 10:18 | CON.ENT ---
Consult Consult Specialty:: ENT Referred by:: Dr. Ratliff Reason for Consultation:: swollen uvula, allergic reaction - History of Present Illness Chief Complaint: throat pain History of Present Illness: 56 yo M with signfiicant history of colon cancer (rectal adenocarcinoma) , s/p colectomy, colostomy, hx carcinomatosis, for chemotherapy, recent abdominal pain with obstructive symptoms., nausea and vomiting. had recent admission to [facility]. now admitted, NG tube in place. no surgery planned. pt had throat pain, used topical throat spray last night and ~5 minutes after noted significant throat problems with swelling. exam showed markedly swollen uvula with partial airway obstruction, urgent medical intervention and transfer to ICU for airway observation today pt feels slightly better but still complains of throat pain, no respiratory distress - History Source History Provided By: Patient, Medical Record Limitations to Obtaining History: No Limitations - Past Medical History Cardio/Vascular: Yes: HTN Gastrointestinal: Yes: Cancer (rectal cancer stage 4, s/p subtotal colectomy, carcinomatosis ) Infectious Disease: Yes: Other (intra-abdominal abscess) - Past Surgical History Past Surgical History: Yes: Colectomy (subtotal colectomy ), Colostomy - Alcohol/Substance Use Hx Alcohol Use: No - Smoking History Smoking history: Unknown if ever smoked Have you smoked in the past 12 months: No - Social History Usual Living Arrangement: Alone History of Recent Travel: No Home Medications - Allergies Allergies/Adverse Reactions: Allergies Allergy/AdvReac Type Severity Reaction Status Date / Time No Known Allergies Allergy Verified 07/19/17 05:20 - Home Medications Home Medications: Ambulatory Orders Amlodipine Besylate [Norvasc -] 10 mg PO DAILY #30 tablet 07/13/17 Losartan Potassium 50 mg PO DAILY #30 tablet 07/13/17 Metoprolol Succinate [Toprol XL -] 50 mg PO DAILY #30 tab.sr.24h 07/13/17 Pantoprazole Sodium [Protonix] 40 mg PO DAILY #30 tablet. 07/13/17 Physical Exam-ENT Vital Signs: Vital Signs Temperature 98.8 F 07/19/17 06:00 Pulse Rate 107 H 07/19/17 10:08 Respiratory Rate 22 07/19/17 10:08 Blood Pressure 132/88 07/19/17 10:08 O2 Sat by Pulse Oximetry (%) 98 07/19/17 03:30 Constitutional: Yes: No Distress, Anxious Head: Yes: WNL Face: Yes: WNL Eyes: Yes: WNL Nose: Yes: Other (NG tube right in place, secure, left nose no drainage or bleeding) Oral/Pharynx: Yes: Other (oropharynx: NGT vertical, uvula midline but swollen and elongated , tip not seen, into hypopharynx, no abscess, tongue, floor of mouth normal, voice clear and strong, not muffled or hot potato, no stridor or respiratory distress) Outer Ear: Yes: WNL Neck: Yes: WNL (no mass, node, trachea midline, thyroid and salivary glands unremarkable) Respiratory: Yes: WNL Neurological: Yes: WNL, Alert, Oriented Imaging - Results X-ray: Report Reviewed (abdomen NGT in place, dilated bowel) Problem List - Problems (1) Uvular edema Assessment/Plan: acute onset uvular edema s/p topical throat spray, suspect allergic reaction airway is stable, no respiratory distress, no stridor, voice is clear and strong. pt has continued throat pain in addition to the acute inflammatory reaction of the uvula, the presence of the NGT and vomiting are the primary causes of throat pain for which the patient sought relief with the topical throat spray. there is mild clinical improvement after medical treatment, presently the main complaint is throat pain and the sensation of the swollen uvula. NO worrisome airway obstruction on exam. Recommend: continue medical management, concur with antihistamines and steroids airway observation Thank you for consultation, Nikos Horton MD FACS Code(s): K13.79 - OTHER LESIONS OF ORAL MUCOSA
--- NOTE | 2017-07-19 11:02 | PN ---
Progress Note, Physician Chief Complaint: abdominal pain and vomiting History of Present Illness: 56 yo male PMH HTN, stage 3 rectal cancer diagnosed 12/2015 (in [place]) had chemo and RT and s/p subtotal colectomy in 06/2016. He had another surgery for a bowel obstruction after the initial and found now to have carcinomatosis. Presented with vomiting imaging consistent with an SBO, and had an NGT placed for decompression (without incident using cetacaine) as he was not interested in surgical intervention. Later in the evening he complained of discomfort from the NGT and was given a different topical spray (Chloraseptic) that caused an airway reaction. He was urgently assessed by ENT for airway swelling and now stable overnight being observed in the ICU. He reports having flatus in the interim. No other complaints - Current Medication List Current Medications: Active Medications Chlorhexidine Gluconate (Hibiclens For Decolonization -) 1 applic TP HS [facility] Epinephrine (S-2) 1 vial IH Q15H [facility] Stop: 07/19/17 18:16 Last Admin: 07/19/17 03:23 Dose: 1 vial Hydromorphone HCl (Dilaudid Injection -) 1 mg IVPB Q4H PRN PRN Reason: PAIN Cefoxitin Sodium 2 gm/ (Dextrose) 100 mls @ 100 mls/hr IVPB Q6H-IV MAT Last Admin: 07/19/17 10:23 Dose: 100 mls/hr Dextrose/Sodium Chloride (D5-Ns -) 1,000 mls @ 83 mls/hr IV ASDIR [facility] Last Admin: 07/19/17 04:23 Dose: Not Given Famotidine (Pepcid 20 Mg/12 Ml Push) 20 mg in 12 mls @ 144 mls/hr IVPUSH BID [facility] Metoprolol Tartrate (Lopressor Injection -) 5 mg IVPUSH Q6H PRN PRN Reason: HYPERTENSION Last Admin: 07/18/17 21:42 Dose: 5 mg Mupirocin (Bactroban Ointment (For Decolonization) -) 1 applic NS BID [facility] Stop: 07/24/17 09:59 Last Admin: 07/19/17 10:23 Dose: 1 applic Ondansetron HCl (Zofran Injection) 8 mg IVPB Q6H PRN PRN Reason: NAUSEA Last Admin: 07/19/17 03:00 Dose: 8 mg Phenol/Menthol (Chloraseptic -) 1 spray MM Q4H PRN Last Admin: 07/18/17 23:45 Dose: 1 spray - Objective Vital Signs: Vital Signs Temperature 98.7 F 07/19/17 10:08 Pulse Rate 102 H 07/19/17 10:24 Respiratory Rate 22 07/19/17 10:08 Blood Pressure 132/88 07/19/17 10:08 O2 Sat by Pulse Oximetry (%) 94 L 07/19/17 10:24 Vital Signs Period Temp Pulse Resp BP Sys/Glass Pulse Ox Last 24 Hr 98.1 F-98.8 F 93-113 18-22 113-154/70-97 35-98 Constitutional: Yes: No Distress, Calm, Obese Eyes: Yes: Conjunctiva Clear, EOM Intact HENT: Yes: Atraumatic, Normocephalic, Other (NGT present). No: Epistaxis, Hoarseness Neck: Yes: Supple, Trachea Midline Cardiovascular: Yes: Regular Rate and Rhythm, S1, S2. No: Murmur Respiratory: Yes: Regular, CTA Bilaterally Gastrointestinal: Yes: Normal Bowel Sounds, Soft, Tenderness (mild LLQ tenderness on deep palpation), Other (NGT in place). No: Tenderness, Epigastrium, Tenderness, Rebound ...Rectal Exam: Yes: Deferred Musculoskeletal: No: Muscle Pain, Muscle Weakness Edema: No Peripheral Pulses WNL: Yes Neurological: Yes: Alert, Oriented Psychiatric: Yes: Alert, Oriented Labs: Intake & Output 07/18/17 07/19/17 07/19/17 23:59 07:59 15:59 Intake Total 100 1232 Output Total 200 500 Balance -100 732 Intake: IV 1232 D5-Ns - 1,000 ml @ 83 mls 1232 /hr IV ASDIR MAT Rx#: [id number] IVPB 100 Oral 0 Output: Urine 200 500 Void 200 500 Other: Voiding Method Toilet Urinal CBC,CMP WBC 11.3 K/mm3 (4.0-10.0) H D 07/19/17 16:05 RBC 4.56 M/mm3 (4.00-5.60) 07/19/17 16:05 Hgb 12.7 GM/dL (11.7-16.9) D 07/19/17 16:05 Hct 38.0 % (35.4-49) 07/19/17 16:05 MCV 83.3 fl (80-96) 07/19/17 16:05 MCH 27.8 pg (25.7-33.7) 07/19/17 16:05 MCHC 33.3 g/dl (32.0-35.9) 07/19/17 16:05 RDW 16.0 % (11.9-15.9) H 07/19/17 16:05 Plt Count 270 K/MM3 (134-434) D 07/19/17 16:05 MPV 8.4 fl (7.5-11.1) 07/19/17 16:05 Neutrophils % 90.4 % (42.8-82.8) H 07/19/17 16:05 Lymphocytes % 7.1 % (8-40) L D 07/19/17 16:05 Monocytes % 2.1 % (3.8-10.2) L 07/19/17 16:05 Eosinophils % 0.0 % (0-4.5) D 07/19/17 16:05 Basophils % 0.4 % (0-2.0) 07/19/17 16:05 Sodium 141 mmol/L (136-145) 07/19/17 16:05 Potassium 3.9 mmol/L (3.5-5.1) 07/19/17 16:05 Chloride 105 mmol/L (98-107) 07/19/17 16:05 Carbon Dioxide 26 mmol/L (21-32) 07/19/17 16:05 Anion Gap 10 (8-16) 07/19/17 16:05 BUN 19 mg/dL (7-18) H 07/19/17 16:05 Creatinine 1.1 mg/dL (0.7-1.3) D 07/19/17 16:05 Creat Clearance w eGFR > 60 (>60) 07/19/17 16:05 Random Glucose 153 mg/dL (74-106) H 07/19/17 16:05 Lactic Acid 1.8 mmol/L (0.4-2.0) 07/18/17 11:08 Calcium 8.7 mg/dL (8.5-10.1) 07/19/17 16:05 Total Bilirubin 0.4 mg/dL (0.2-1.0) 07/19/17 16:05 AST 13 U/L (15-37) L D 07/19/17 16:05 ALT 22 U/L (12-78) 07/19/17 16:05 Alkaline Phosphatase 54 U/L (45-117) 07/19/17 16:05 Creatine Kinase Cancelled 07/18/17 01:57 Troponin I Cancelled 07/18/17 01:57 Total Protein 6.6 g/dl (6.4-8.2) 07/19/17 16:05 Albumin 3.1 g/dl (3.4-5.0) L 07/19/17 16:05 Lipase Cancelled 07/18/17 01:57 - ....Imaging X-ray: Report Reviewed, Image Reviewed (still SBO pattern) Problem List - Problems (1) Small bowel obstruction Assessment/Plan: 56 yo male with 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 He has a small bowel obstruction and would prefer not to have any surgery. Now reporting having passed flatus. xray abdomen shows no interval improvement. NPO and IVF hydration continue NGT decompression to LCWS Stat repeat abdominal films empiric IV antibiotics - ID consult? he was on levaquin He prefers to continued non-operatively. Consider transfer for continuity of care with medical oncologist Dr. Doss This patient is in guarded condition in the ICU. Time spent reviewing chart, examining patient, talking with providers and/or family and documentation is 35 minutes Code(s): K56.609 - UNSP INTESTNL OBST, UNSP TO PARTIAL VERSUS COMPLETE OBST (2) Abdominal carcinomatosis Code(s): C76.2 - MALIGNANT NEOPLASM OF ABDOMEN (3) Intraabdominal fluid collection Code(s): R18.8 - OTHER ASCITES (4) ZAHRA (acute kidney injury) Code(s): N17.9 - ACUTE KIDNEY FAILURE, UNSPECIFIED (5) Hydronephrosis due to obstruction of ureter Code(s): N13.2 - HYDRONEPHROSIS WITH RENAL AND URETERAL CALCULOUS OBSTRUCTION (6) HTN (hypertension) Code(s): I10 - ESSENTIAL (PRIMARY) HYPERTENSION Qualifiers: Hypertension type: essential hypertension Qualified Code(s): I10 - Essential (primary) hypertension
--- NOTE | 2017-07-19 11:39 | PN ---
Progress Note, Physician Chief Complaint: EVENTS AND NOTES REVIEWED IN ICU AIRWAY PROTECTION - Current Medication List Current Medications: Active Medications Chlorhexidine Gluconate (Hibiclens For Decolonization -) 1 applic TP HS [facility] Epinephrine (S-2) 1 vial IH Q15H [facility] Stop: 07/19/17 18:16 Last Admin: 07/19/17 03:23 Dose: 1 vial Hydromorphone HCl (Dilaudid Injection -) 1 mg IVPB Q4H PRN PRN Reason: PAIN Cefoxitin Sodium 2 gm/ (Dextrose) 100 mls @ 100 mls/hr IVPB Q6H-IV [facility] Last Admin: 07/19/17 10:23 Dose: 100 mls/hr Dextrose/Sodium Chloride (D5-Ns -) 1,000 mls @ 83 mls/hr IV ASDIR [facility] Last Admin: 07/19/17 04:23 Dose: Not Given Famotidine (Pepcid 20 Mg/12 Ml Push) 20 mg in 12 mls @ 144 mls/hr IVPUSH BID [facility] Metoprolol Tartrate (Lopressor Injection -) 5 mg IVPUSH Q6H PRN PRN Reason: HYPERTENSION Last Admin: 07/18/17 21:42 Dose: 5 mg Mupirocin (Bactroban Ointment (For Decolonization) -) 1 applic NS BID [facility] Stop: 07/24/17 09:59 Last Admin: 07/19/17 10:23 Dose: 1 applic Ondansetron HCl (Zofran Injection) 8 mg IVPB Q6H PRN PRN Reason: NAUSEA Last Admin: 07/19/17 03:00 Dose: 8 mg Phenol/Menthol (Chloraseptic -) 1 spray MM Q4H PRN Last Admin: 07/18/17 23:45 Dose: 1 spray - Objective Vital Signs: Vital Signs Temperature 98.7 F 07/19/17 10:08 Pulse Rate 102 H 07/19/17 10:24 Respiratory Rate 22 07/19/17 10:08 Blood Pressure 132/88 07/19/17 10:08 O2 Sat by Pulse Oximetry (%) 94 L 07/19/17 10:24 Constitutional: Yes: Moderate Distress Eyes: Yes: WNL HENT: Yes: Pharyngeal Erythema Neck: Yes: WNL Cardiovascular: Yes: WNL Respiratory: Yes: On Nasal O2, Other Gastrointestinal: Yes: Palpable Mass, Tenderness Genitourinary: Yes: WNL Musculoskeletal: Yes: Muscle Weakness Extremities: Yes: WNL Edema: Yes Integumentary: Yes: WNL Wound/Incision: Yes: Clean/Dry Neurological: Yes: WNL ...Motor Strength: WNL Psychiatric: Yes: WNL Labs: CBC, BMP 07/18/17 01:57 07/18/17 02:21 INR, PTT INR 1.04 (0.82-1.09) 07/18/17 01:57 Problem List - Problems (1) ZAHRA (acute kidney injury) Code(s): N17.9 - ACUTE KIDNEY FAILURE, UNSPECIFIED (2) Small bowel obstruction Code(s): K56.609 - UNSP INTESTNL OBST, UNSP TO PARTIAL VERSUS COMPLETE OBST (3) Abdominal carcinomatosis Code(s): C76.2 - MALIGNANT NEOPLASM OF ABDOMEN (4) Abnormal abdominal CT scan Code(s): R93.5 - ABN FINDINGS ON DX IMAGING OF ABD REGIONS, INC RETROPERITON (5) Acute abdomen Code(s): R10.0 - ACUTE ABDOMEN (7) Rectal adenocarcinoma Code(s): C20 - MALIGNANT NEOPLASM OF RECTUM Assessment/Plan IV ABX REFUSED EXPLORATORY LAP PAIN CONTROL NGT FOR DECOMPRESSION AIRWAY PROTECTION FOR ALLERGHIC REACTION LIKELY PHARYNGEAL EDEMA ENT CONSULT ICU
[2017-07-19] MEDS ORDERED: PT OWN MED DRAWER 7, Y5N ONE ×2 (14:57→17:53)
[2017-07-19] MEDS ORDERED: ONDANSETRON 4 MG/2 ML VIAL IVPB PRN (15:44)
[2017-07-19] MEDS ORDERED: PHENOL 177 ML SPRAY BOTTLE MM PRN (15:44)
[2017-07-19] MEDS ORDERED: HYDROmorphone HCL CARPU-JECT 1 MG/1 ML DISP.SYRIN ONE (16:27)
--- NOTE | 2017-07-19 16:28 | PN ---
Physical Exam: SUBJECTIVE: Patient seen and examined at bedside. Pt was brought to ICU overnight because of concern that he might not be able to protect his airway in setting of allergic reaction to Cepachol throat spray and uvula swelling. Today , pt is complaining of throat discomfort when swallowing. Pt also has some mild abdominal discomfort. No other complaints. NAD, afebrile, hemodynamically stable. OBJECTIVE: Vital Signs Period Temp Pulse Resp BP Sys/Glass Pulse Ox Last 24 Hr 98.1 F-98.9 F 98-113 18-22 127-158/70-100 35-99 GENERAL: The patient is awake, alert, and fully oriented, in no acute distress. HEAD: Normal with no signs of trauma. EYES: PERRL, extraocular movements intact, sclera anicteric, conjunctiva clear. No ptosis. ENT: NG tube in place. moist mucous membranes. NECK: Trachea midline, full range of motion, supple. LUNGS: Breath sounds equal, clear to auscultation bilaterally, no wheezes, no crackles, no accessory muscle use. HEART: Regular rate and rhythm, S1, S2 without murmur, rub or gallop. ABDOMEN: Ostomy bag in place. Midline scar. Soft tender to palpation with mild degree of guarding. No rebound. + bowel sounds. EXTREMITIES: 2+ pulses, warm, well-perfused, no edema. NEUROLOGICAL: Cranial nerves II through XII grossly intact. Normal speech, gait not observed. PSYCH: Normal mood, normal affect. SKIN: Warm, dry, normal turgor, no rashes or lesions noted Laboratory Results - last 24 hr 07/18/17 07/18/17 11:55 18:30 Urine Color Ltyellow Urine Appearance Clear Urine pH 5.0 Ur Specific [place] 1.029 Urine Protein 1+ H Urine Glucose (UA) 1+ H Urine Ketones Negative Urine Blood 2+ H Urine Nitrite Negative Urine Bilirubin Negative Urine Urobilinogen Negative Ur Leukocyte Esterase Negative Negative Urine WBC (Auto) 14 Urine RBC (Auto) 37 Ur Epithelial Cells Rare Urine Bacteria Rare Urine Mucus Rare Active Medications Generic Name Dose Route Start Last Admin Trade Name Freq PRN Reason Stop Dose Admin Chlorhexidine Gluconate 1 applic 07/19/17 22:00 Hibiclens For Decolonization - TP HS MAT Epinephrine 1 vial 07/19/17 18:15 S-2 IH 07/19/17 18:16 Q15H MAT Hydromorphone HCl 1 mg 07/19/17 15:44 Dilaudid Injection - IVPB Q4H PRN PAIN Cefoxitin Sodium 2 gm/ 100 mls @ 100 mls/hr 07/19/17 21:00 Dextrose IVPB Q6H-IV MAT Dextrose/Sodium Chloride 1,000 mls @ 83 mls/hr 07/19/17 15:44 D5-Ns - IV ASDIR MAT Famotidine 20 mg in 12 mls @ 144 mls/hr 07/19/17 22:00 Pepcid 20 Mg/12 Ml Push IVPUSH BID [facility] Metoprolol Tartrate 5 mg 07/19/17 15:44 Lopressor Injection - IVPUSH Q6H PRN HYPERTENSION Mupirocin 1 applic 07/19/17 22:00 Bactroban Ointment (For Decolonization) - NS 07/24/17 09:59 BID MAT Ondansetron HCl 8 mg 07/19/17 15:44 Zofran Injection IVPB Q6H PRN NAUSEA Phenol/Menthol 1 spray 07/19/17 15:44 Chloraseptic - MM Q4H PRN ASSESSMENT/PLAN: Pt is a 56M w/ PMH HTN, stage 3 rectal cancer diagnosed 12/2015 s/p chemo and RT and s/p subtotal colectomy in 06/2016, recent renal stents who presented to ED with severe abdominal pain. Pt was brought to ICU after having a choking sensation following Cepakol spray because of concern for airway protection. Pulm #Allergic reaction: resolved -sensation of sticking in throat following Cepakol -Pt did not require intubation. Sats are fine. No stridor. No resp distress. -ENT was consulted. GI #Colon CA -pt refusing ex lap at this time -colostomy in place and functioning well -NG tube decompression FEN -D5NS -lytes wnl -NPO PPx -SCDs Dispo -Transfer to [facility] Gianni Pierce MD PGY-1 ICU Visit type - Emergency Visit Emergency Visit: No - New Patient This patient is new to me today: Yes Date on this admission: 07/19/17 - Critical Care Critical Care patient: No - Discharge Referral Referred to [facility] Med P.C.: No
[2017-07-19] MEDS: HYDROmorphone HCL CARPU-JECT 1 MG/1 ML DISP.SYRIN IVPUSH ONE (16:31)
[2017-07-19 16:42] LABS: BASO % 0.4 % (0-2.0); MCH 27.8 pg (25.7-33.7); MCHC 33.3 g/dl (32.0-35.9); MEAN CELL VOLUME 83.3 fl (80-96); MEAN PLT VOLUME 8.4 fl (7.5-11.1); NEUT % 90.4 % (42.8-82.8); PLATELET COUNT 270 K/MM3 (134-434); WHITE BLOOD COUNT 11.3 K/mm3 (4.0-10.0)
[2017-07-19 17:08] LABS: ALBUMIN 3.1 g/dl (3.4-5.0); ANION GAP 10 (8-16); BILIRUBIN,TOTAL 0.4 mg/dL (0.2-1.0); CALCIUM 8.7 mg/dL (8.5-10.1); CO2 26 mmol/L (21-32); CREATININE 1.1 mg/dL (0.7-1.3); GLUCOSE,RANDOM 153 mg/dL (74-106); SGOT/AST 13 U/L (15-37); SGPT/ALT 22 U/L (12-78)
[2017-07-19 17:09] LABS: ALK PHOS 54 U/L (45-117); TOT PROT 6.6 g/dl (6.4-8.2)
[2017-07-19] MEDS ORDERED: HYDROmorphone HCL CARPU-JECT 2 MG/1 ML DISP.SYRIN IVPB ONE (17:15)
[2017-07-19] MEDS: HYDROmorphone HCL CARPU-JECT 2 MG/1 ML DISP.SYRIN IVPB PRN (20:38)
[2017-07-19] MEDS: FAMOTIDINE IV 20 MG/12 ML VIAL IVPUSH SCH (21:12)
[2017-07-19] MEDS ORDERED: CHLORHEXIDINE GLUCONATE 4% CLEANSER FOR DECOLONIZATION TP SCH ×2 (22:00)
[2017-07-20] MEDS: HYDROmorphone HCL CARPU-JECT 2 MG/1 ML DISP.SYRIN IVPB PRN ×3 (01:14→17:55)
[2017-07-20] MEDS: CEFOXITIN SODIUM 2 GM in DEXTROSE 5%-WATER - 100 ML IVPB SCH ×4 (02:38→20:39)
[2017-07-20] MEDS ORDERED: PT OWN MED DRAWER 7, Y5N ONE ×3 (09:53→19:31)
--- NOTE | 2017-07-20 10:24 | PN ---
Progress Note, Physician Chief Complaint: AWAKE AND UPSET ABOUT NGT I EXPLAINED HE WILL NEED THE NGT PLACED AND CONTINUE FOR AT LEAST 2 MORE DAYS. - Current Medication List Current Medications: Active Medications Epinephrine (S-2) 1 vial IH Q15H [facility] Stop: 07/19/17 18:16 Hydromorphone HCl (Dilaudid Injection -) 1 mg IVPB Q4H PRN PRN Reason: PAIN Last Admin: 07/20/17 06:26 Dose: 1 mg Cefoxitin Sodium 2 gm/ (Dextrose) 100 mls @ 100 mls/hr IVPB Q6H-IV [facility] Last Admin: 07/20/17 10:06 Dose: 100 mls/hr Dextrose/Sodium Chloride (D5-Ns -) 1,000 mls @ 83 mls/hr IV ASDIR [facility] Last Admin: 07/19/17 17:56 Dose: 83 mls/hr Famotidine (Pepcid 20 Mg/12 Ml Push) 20 mg in 12 mls @ 144 mls/hr IVPUSH BID [facility] Last Admin: 07/19/17 21:12 Dose: 144 mls/hr Metoprolol Tartrate (Lopressor Injection -) 5 mg IVPB Q6H PRN PRN Reason: HYPERTENSION Ondansetron HCl (Zofran Injection) 8 mg IVPB Q6H PRN PRN Reason: NAUSEA - Objective Vital Signs: Vital Signs Temperature 97.8 F 07/20/17 06:01 Pulse Rate 102 H 07/20/17 06:47 Respiratory Rate 20 07/20/17 06:01 Blood Pressure 146/95 07/20/17 06:47 O2 Sat by Pulse Oximetry (%) 96 07/19/17 21:00 Constitutional: Yes: Mild Distress Eyes: Yes: WNL HENT: Yes: WNL Neck: Yes: WNL Cardiovascular: Yes: WNL Respiratory: Yes: WNL Gastrointestinal: Yes: Tenderness Genitourinary: Yes: WNL Musculoskeletal: Yes: WNL Extremities: Yes: WNL Edema: No Peripheral Pulses WNL: Yes Integumentary: Yes: WNL Wound/Incision: Yes: Clean/Dry Neurological: Yes: WNL ...Motor Strength: WNL Psychiatric: Yes: WNL Labs: CBC, BMP 07/19/17 16:05 07/19/17 16:05 INR, PTT INR 1.04 (0.82-1.09) 07/18/17 01:57 Problem List - Problems (1) ZAHRA (acute kidney injury) Code(s): N17.9 - ACUTE KIDNEY FAILURE, UNSPECIFIED (2) Small bowel obstruction Code(s): K56.609 - UNSP INTESTNL OBST, UNSP TO PARTIAL VERSUS COMPLETE OBST (3) Abdominal carcinomatosis Code(s): C76.2 - MALIGNANT NEOPLASM OF ABDOMEN (4) Abnormal abdominal CT scan Code(s): R93.5 - ABN FINDINGS ON DX IMAGING OF ABD REGIONS, INC RETROPERITON (5) Acute abdomen Code(s): R10.0 - ACUTE ABDOMEN (7) Rectal adenocarcinoma Code(s): C20 - MALIGNANT NEOPLASM OF RECTUM Assessment/Plan NGT CONTINUE NPO RESP FUNCTION NORMAL DVT PROPHYLAXIS ATIVAN PRN
[2017-07-20] MEDS ORDERED: LORazepam 2 MG/ML SDV VIAL ONE (10:55)
[2017-07-20] MEDS: FAMOTIDINE IV 20 MG/12 ML VIAL IVPUSH SCH ×2 (10:58→21:37)
[2017-07-20] MEDS: DEXTROSE 5%-NORMAL SALINE 1,000 ML IV SCH (14:55)
[2017-07-20] MEDS: METOPROLOL TARTRATE 5 MG/5 ML VIAL IVPB PRN (14:56)
--- NOTE | 2017-07-20 16:25 | PN ---
Progress Note, Physician Chief Complaint: abdominal pain and vomiting History of Present Illness: 56 yo male PMH HTN, stage 3 rectal cancer diagnosed 12/2015 (in [place]) had chemo and RT and s/p subtotal colectomy in 06/2016. He had another surgery for a bowel obstruction after the initial and found now to have carcinomatosis. Presented with vomiting imaging consistent with an SBO, and had an NGT placed for decompression (without incident using cetacaine) as he was not interested in surgical intervention. Later in the evening he complained of discomfort from the NGT and was given a different topical spray (Chloraseptic) that caused an airway reaction. He was urgently assessed by ENT for airway swelling and now stable overnight being observed in the ICU. He reports having flatus in the interim. He discontinued his NGT against medical advice this afternoon. - Current Medication List Current Medications: Active Medications Epinephrine (S-2) 1 vial IH Q15H MAT Stop: 07/19/17 18:16 Hydromorphone HCl (Dilaudid Injection -) 1 mg IVPB Q4H PRN PRN Reason: PAIN Last Admin: 07/20/17 06:26 Dose: 1 mg Cefoxitin Sodium 2 gm/ (Dextrose) 100 mls @ 100 mls/hr IVPB Q6H-IV MAT Last Admin: 07/20/17 14:55 Dose: 100 mls/hr Dextrose/Sodium Chloride (D5-Ns -) 1,000 mls @ 83 mls/hr IV ASDIR MAT Last Admin: 07/20/17 14:55 Dose: 83 mls/hr Famotidine (Pepcid 20 Mg/12 Ml Push) 20 mg in 12 mls @ 144 mls/hr IVPUSH BID MAT Last Admin: 07/20/17 10:58 Dose: 144 mls/hr Lorazepam (Ativan Injection -) 1 mg IVPUSH Q6H PRN PRN Reason: ANXIETY Last Admin: 07/20/17 10:58 Dose: 1 mg Metoprolol Tartrate (Lopressor Injection -) 5 mg IVPB Q6H PRN PRN Reason: HYPERTENSION Last Admin: 07/20/17 14:56 Dose: 5 mg Ondansetron HCl (Zofran Injection) 8 mg IVPB Q6H PRN PRN Reason: NAUSEA - Objective Vital Signs: Vital Signs Temperature 98.2 F 07/20/17 15:09 Pulse Rate 102 H 07/20/17 15:09 Respiratory Rate 20 07/20/17 15:09 Blood Pressure 171/103 07/20/17 15:09 O2 Sat by Pulse Oximetry (%) 97 07/20/17 09:00 Vital Signs Period Temp Pulse Resp BP Sys/Glass Pulse Ox Last 24 Hr 97.8 F-98.4 F 96-109 18-20 140-185/90-103 96-97 Intake & Output 07/20/17 07/20/17 07/20/17 07:59 15:59 23:59 Intake Total 900 Output Total 1100 600 Balance -200 -600 Intake: IV 750 D5-Ns - 1,000 ml @ 83 mls 750 /hr IV ASDIR MAT Rx#: [id number] IVPB 150 Output: Gastric Drainage 400 Urine 700 600 Void 700 600 Other: Voiding Method Urinal Bowel Movement Yes: colostomy, sm dk brown Constitutional: Yes: No Distress, Obese Eyes: Yes: Conjunctiva Clear, EOM Intact HENT: Yes: Atraumatic, Normocephalic Neck: Yes: Supple, Trachea Midline Cardiovascular: Yes: Regular Rate and Rhythm, S1, S2 Respiratory: Yes: Regular, CTA Bilaterally Gastrointestinal: Yes: Normal Bowel Sounds, Soft Edema: No Peripheral Pulses WNL: Yes Neurological: Yes: Alert, Oriented Psychiatric: Yes: Alert, Oriented Labs: CBC, BMP 07/19/17 16:05 07/19/17 16:05 INR, PTT INR 1.04 (0.82-1.09) 07/18/17 01:57 - ....Imaging X-ray: Report Reviewed, Image Reviewed (improved from previous still SBO pattern ) Problem List - Problems (1) Small bowel obstruction Assessment/Plan: 56 yo male with 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 He has a small bowel obstruction and would prefer not to have any surgery. Now reporting having passed flatus. xray abdomen shows some interval improvement. NPO and IVF hydration Self-discontinued NGT, it was replaced 1 hour later repeat abdominal Xray in AM empiric IV antibiotics - ID consult? he was on levaquin He prefers to continued non-operatively. Consider transfer for continuity of care with medical oncologist Dr. Doss This patient is in guarded condition in the ICU. Time spent reviewing chart, examining patient, talking with providers and/or family and documentation is 35 minutes Code(s): K56.609 - UNSP INTESTNL OBST, UNSP TO PARTIAL VERSUS COMPLETE OBST (2) Abdominal carcinomatosis Code(s): C76.2 - MALIGNANT NEOPLASM OF ABDOMEN (3) Intraabdominal fluid collection Code(s): R18.8 - OTHER ASCITES (4) ZAHRA (acute kidney injury) Code(s): N17.9 - ACUTE KIDNEY FAILURE, UNSPECIFIED (5) Hydronephrosis due to obstruction of ureter Code(s): N13.2 - HYDRONEPHROSIS WITH RENAL AND URETERAL CALCULOUS OBSTRUCTION (6) HTN (hypertension) Code(s): I10 - ESSENTIAL (PRIMARY) HYPERTENSION Qualifiers: Hypertension type: essential hypertension Qualified Code(s): I10 - Essential (primary) hypertension
[2017-07-20] MEDS ORDERED: TETRACAINE/BENZOCAINE/BUTAMBEN 20 GM SPR TP STA (16:40)
[2017-07-20] MEDS ORDERED: LIDOCAINE VISCOUS 2% ORAL/TOP 20 ML UNIT-DOSE CUP MM ONE (16:41)
[2017-07-20] MEDS: LORazepam 2 MG/ML SDV VIAL IVPUSH PRN (21:52)
[2017-07-21] MEDS: HYDROmorphone HCL CARPU-JECT 2 MG/1 ML DISP.SYRIN IVPB PRN ×2 (00:31→04:52)
[2017-07-21] MEDS: CEFOXITIN SODIUM 2 GM in DEXTROSE 5%-WATER - 100 ML IVPB SCH ×4 (02:52→22:07)
[2017-07-21] MEDS: METOPROLOL TARTRATE 5 MG/5 ML VIAL IVPB PRN ×2 (06:49→12:55)
[2017-07-21] MEDS: DEXTROSE 5%-NORMAL SALINE 1,000 ML IV SCH ×2 (06:50→21:49)
--- NOTE | 2017-07-21 09:34 | PN ---
Progress Note, Physician Chief Complaint: abdominal pain and vomiting History of Present Illness: 56 yo male PMH HTN, stage 3 rectal cancer, found now to have carcinomatosis. Presented with vomiting imaging consistent with an SBO, He reports having flatus in the interim. NGT decompression appears to be working. no other complaints. - Current Medication List Current Medications: Active Medications Epinephrine (S-2) 1 vial IH Q15H MAT Stop: 07/19/17 18:16 Hydromorphone HCl (Dilaudid Injection -) 1 mg IVPB Q4H PRN PRN Reason: PAIN Cefoxitin Sodium 2 gm/ (Dextrose) 100 mls @ 100 mls/hr IVPB Q6H-IV MAT Last Admin: 07/21/17 02:52 Dose: 100 mls/hr Dextrose/Sodium Chloride (D5-Ns -) 1,000 mls @ 83 mls/hr IV ASDIR MAT Last Admin: 07/21/17 06:50 Dose: 83 mls/hr Famotidine (Pepcid 20 Mg/12 Ml Push) 20 mg in 12 mls @ 144 mls/hr IVPUSH BID MAT Last Admin: 07/20/17 21:37 Dose: 144 mls/hr Lorazepam (Ativan Injection -) 1 mg IVPUSH Q6H PRN PRN Reason: ANXIETY Last Admin: 07/20/17 21:52 Dose: 1 mg Metoprolol Tartrate (Lopressor Injection -) 5 mg IVPB Q6H PRN PRN Reason: HYPERTENSION Last Admin: 07/21/17 06:49 Dose: 5 mg Ondansetron HCl (Zofran Injection) 8 mg IVPB Q6H PRN PRN Reason: NAUSEA - Objective Vital Signs: Vital Signs Temperature 98.3 F 07/21/17 06:00 Pulse Rate 98 H 07/21/17 06:49 Respiratory Rate 20 07/21/17 06:00 Blood Pressure 140/105 07/21/17 06:49 O2 Sat by Pulse Oximetry (%) 97 07/20/17 21:00 Vital Signs Period Temp Pulse Resp BP Sys/Glass Pulse Ox Last 24 Hr 98 F-98.5 F 96-108 18-20 140-171/94-105 97 Intake & Output 07/20/17 07/21/17 07/21/17 23:59 07:59 15:59 Intake Total 1200 950 Output Total 1100 1200 Balance 100 -250 Intake: IV 800 800 D5-Ns - 1,000 ml @ 83 mls 800 800 /hr IV ASDIR MAT Rx#: [id number] IVPB 400 150 Output: Gastric Drainage 350 300 Urine 750 900 Void 750 900 Other: Voiding Method Urinal Bowel Movement Yes: Colostomy Constitutional: Yes: No Distress, Calm, Obese Eyes: Yes: Conjunctiva Clear, EOM Intact HENT: Yes: Atraumatic, Normocephalic Neck: Yes: Supple, Trachea Midline Cardiovascular: Yes: Regular Rate and Rhythm, S1, S2 Respiratory: Yes: Regular, CTA Bilaterally Gastrointestinal: Yes: Normal Bowel Sounds, Soft, Distention (less than previous ) Genitourinary: No: CVA Tenderness - Left, CVA Tenderness - Right Edema: No Peripheral Pulses WNL: Yes Peripheral Pulses: Left Radial: 2+, Right Radial: 2+, Left Doralis Pedis: 2+, Right Dorsalis Pedis: 2+, Left Femoral: 2+, Right Femoral: 2+ Neurological: Yes: Alert, Oriented Psychiatric: Yes: Alert, Oriented Labs: CBC, BMP 07/19/17 16:05 07/19/17 16:05 INR, PTT INR 1.04 (0.82-1.09) 07/18/17 01:57 - ....Imaging X-ray: Report Reviewed (unchanged bowel distension upper quadrants.), Image Reviewed Problem List - Problems (1) Small bowel obstruction Assessment/Plan: 56 yo male with 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 He has a small bowel obstruction and would prefer not to have any surgery. Reporting having passed flatus and BM . xray abdomen shows some interval improvement compared to previous, output from NGT only 300ml since placement. IVF hydration Clear Liquids today D/C NGT repeat abdominal Xray in AM repeat labs in AM He prefers to continued non-operatively. Consider transfer for continuity of care with medical oncologist Dr. Doss Code(s): K56.609 - UNSP INTESTNL OBST, UNSP TO PARTIAL VERSUS COMPLETE OBST (2) Abdominal carcinomatosis Code(s): C76.2 - MALIGNANT NEOPLASM OF ABDOMEN (3) Intraabdominal fluid collection Code(s): R18.8 - OTHER ASCITES (4) ZAHRA (acute kidney injury) Code(s): N17.9 - ACUTE KIDNEY FAILURE, UNSPECIFIED (5) Hydronephrosis due to obstruction of ureter Code(s): N13.2 - HYDRONEPHROSIS WITH RENAL AND URETERAL CALCULOUS OBSTRUCTION (6) HTN (hypertension) Code(s): I10 - ESSENTIAL (PRIMARY) HYPERTENSION Qualifiers: Hypertension type: essential hypertension Qualified Code(s): I10 - Essential (primary) hypertension
[2017-07-21] MEDS ORDERED: PT OWN MED DRAWER 7, Y5N ONE ×4 (09:57→14:49)
[2017-07-21] MEDS: HYDROmorphone HCL CARPU-JECT 1 MG/1 ML DISP.SYRIN IVPB PRN (10:44)
--- NOTE | 2017-07-21 11:33 | PN ---
Progress Note, Physician Chief Complaint: AWAKE NGT REMOVED FEELS BETTER - Current Medication List Current Medications: Active Medications Epinephrine (S-2) 1 vial IH Q15H MAT Stop: 07/19/17 18:16 Hydromorphone HCl (Dilaudid Injection -) 1 mg IVPB Q4H PRN PRN Reason: PAIN Last Admin: 07/21/17 10:44 Dose: 1 mg Cefoxitin Sodium 2 gm/ (Dextrose) 100 mls @ 100 mls/hr IVPB Q6H-IV MAT Last Admin: 07/21/17 09:59 Dose: 100 mls/hr Dextrose/Sodium Chloride (D5-Ns -) 1,000 mls @ 83 mls/hr IV ASDIR MAT Last Admin: 07/21/17 06:50 Dose: 83 mls/hr Famotidine (Pepcid 20 Mg/12 Ml Push) 20 mg in 12 mls @ 144 mls/hr IVPUSH BID MAT Last Admin: 07/20/17 21:37 Dose: 144 mls/hr Lorazepam (Ativan Injection -) 1 mg IVPUSH Q6H PRN PRN Reason: ANXIETY Last Admin: 07/20/17 21:52 Dose: 1 mg Metoprolol Tartrate (Lopressor Injection -) 5 mg IVPB Q6H PRN PRN Reason: HYPERTENSION Last Admin: 07/21/17 06:49 Dose: 5 mg Ondansetron HCl (Zofran Injection) 8 mg IVPB Q6H PRN PRN Reason: NAUSEA - Objective Vital Signs: Vital Signs Temperature 98.0 F 07/21/17 09:00 Pulse Rate 90 07/21/17 09:00 Respiratory Rate 18 07/21/17 09:00 Blood Pressure 163/103 07/21/17 09:00 O2 Sat by Pulse Oximetry (%) 97 07/20/17 21:00 Constitutional: Yes: Mild Distress Eyes: Yes: WNL HENT: Yes: WNL Neck: Yes: WNL Cardiovascular: Yes: WNL Respiratory: Yes: WNL Gastrointestinal: Yes: Palpable Mass, Tenderness, Other (COLOSTOMY) Musculoskeletal: Yes: Muscle Weakness Extremities: Yes: WNL Edema: No Peripheral Pulses WNL: Yes Integumentary: Yes: WNL Wound/Incision: Yes: Dressing Dry and Intact Neurological: Yes: Pre-Existing Deficit Psychiatric: Yes: WNL Labs: CBC, BMP 07/19/17 16:05 07/19/17 16:05 INR, PTT INR 1.04 (0.82-1.09) 07/18/17 01:57 Problem List - Problems (1) ZAHRA (acute kidney injury) Code(s): N17.9 - ACUTE KIDNEY FAILURE, UNSPECIFIED (2) Small bowel obstruction Code(s): K56.609 - UNSP INTESTNL OBST, UNSP TO PARTIAL VERSUS COMPLETE OBST (3) Abdominal carcinomatosis Code(s): C76.2 - MALIGNANT NEOPLASM OF ABDOMEN (4) Abnormal abdominal CT scan Code(s): R93.5 - ABN FINDINGS ON DX IMAGING OF ABD REGIONS, INC RETROPERITON (5) Acute abdomen Code(s): R10.0 - ACUTE ABDOMEN (7) Rectal adenocarcinoma Code(s): C20 - MALIGNANT NEOPLASM OF RECTUM Assessment/Plan NGT REMOVED CLEAR DIET FOR 2 DAYS ENSURE CLEAR SHAKE OOB TO CHAIR
[2017-07-21] MEDS: FAMOTIDINE IV 20 MG/12 ML VIAL IVPUSH SCH ×2 (12:22→22:06)
[2017-07-21] MEDS: LOSARTAN POTASSIUM 50 MG TABLET (FP) PO SCH (14:58)
[2017-07-21] MEDS: amLODIPine BESYLATE 10 MG TABLET (FP) PO SCH (14:58)
[2017-07-21] MEDS: oxyCODONE HCL 5 MG TABLET PO PRN ×2 (14:58→20:37)
[2017-07-21] MEDS: METOPROLOL SUCCINATE 50 MG TAB.SR.24H (FP) PO SCH (16:16)
--- NOTE | 2017-07-21 23:54 | PN ---
Progress Note (short form) - Note Progress Note: Paged for worsening abdominal pain and distention. On exam, patient states that he was feeling fine earlier and received his pain medication at 8pm. He began to feel worsening abdominal pain and asked the nurse to get an X ray of the abdomen. At the time patient refused NGT but states to me he would be agreeable if X ray is markedly worse. Will get xray abdomen. Patient's LFTs are within normal limits and he recently had a dose of his opioid medication. Will give tylenol Q6PRN for pain.
[2017-07-22] MEDS: ACETAMINOPHEN 325 MG TABLET (FP) PO PRN (00:34)
[2017-07-22] MEDS: HYDROmorphone HCL CARPU-JECT 1 MG/1 ML DISP.SYRIN IVPB PRN ×4 (01:49→21:18)
[2017-07-22] MEDS: DEXTROSE 5%-NORMAL SALINE 1,000 ML IV SCH ×3 (02:55→20:45)
[2017-07-22] MEDS: CEFOXITIN SODIUM 2 GM in DEXTROSE 5%-WATER - 100 ML IVPB SCH ×4 (03:32→20:43)
[2017-07-22 07:34] LABS: BASO % 0.3 % (0-2.0); EOS % 1.4 % (0-4.5); MCH 27.1 pg (25.7-33.7); MCHC 32.7 g/dl (32.0-35.9); MEAN CELL VOLUME 82.7 fl (80-96); MEAN PLT VOLUME 7.9 fl (7.5-11.1); NEUT % 78.5 % (42.8-82.8); PLATELET COUNT 270 K/MM3 (134-434); RDW 16.2 % (11.9-15.9); WHITE BLOOD COUNT 11.1 K/mm3 (4.0-10.0)
--- NOTE | 2017-07-22 09:11 | PN ---
Progress Note, Physician Chief Complaint: abdominal pain and vomiting History of Present Illness: 56 yo male PMH HTN, stage 3 rectal cancer, found now to have carcinomatosis. Presented with vomiting imaging consistent with an SBO, He reports having flatus in the interim. NGT decompression appears to be working. Abdominal pain last night obtained an Xray that showed persistant distension. no reported vomiting. - Current Medication List Current Medications: Active Medications Acetaminophen (Tylenol -) 650 mg PO Q6H PRN PRN Reason: FEVER OR PAIN Last Admin: 07/22/17 00:34 Dose: 650 mg Amlodipine Besylate (Norvasc -) 10 mg PO DAILY [facility] Last Admin: 07/21/17 14:58 Dose: 10 mg Epinephrine (S-2) 1 vial IH Q15H [facility] Stop: 07/19/17 18:16 Hydromorphone HCl (Dilaudid Injection -) 1 mg IVPB Q4H PRN PRN Reason: PAIN Last Admin: 07/22/17 01:49 Dose: 1 mg Cefoxitin Sodium 2 gm/ (Dextrose) 100 mls @ 100 mls/hr IVPB Q6H-IV MAT Last Admin: 07/22/17 03:32 Dose: 100 mls/hr Dextrose/Sodium Chloride (D5-Ns -) 1,000 mls @ 83 mls/hr IV ASDIR [facility] Last Admin: 07/22/17 02:55 Dose: 83 mls/hr Famotidine (Pepcid 20 Mg/12 Ml Push) 20 mg in 12 mls @ 144 mls/hr IVPUSH BID MAT Last Admin: 07/21/17 22:06 Dose: 144 mls/hr Lorazepam (Ativan Injection -) 1 mg IVPUSH Q6H PRN PRN Reason: ANXIETY Last Admin: 07/20/17 21:52 Dose: 1 mg Losartan Potassium (Cozaar -) 50 mg PO DAILY [facility] Last Admin: 07/21/17 14:58 Dose: 50 mg Metoprolol Succinate (Toprol Xl -) 50 mg PO DAILY [facility] Last Admin: 07/21/17 16:16 Dose: 50 mg Ondansetron HCl (Zofran Injection) 8 mg IVPB Q6H PRN PRN Reason: NAUSEA Oxycodone HCl (Roxicodone -) 15 mg PO Q6H PRN PRN Reason: PAIN Last Admin: 07/21/17 20:37 Dose: 15 mg - Objective Vital Signs: Vital Signs Temperature 98.4 F 07/22/17 06:00 Pulse Rate 89 07/22/17 06:00 Respiratory Rate 20 07/22/17 06:00 Blood Pressure 139/98 07/22/17 06:00 O2 Sat by Pulse Oximetry (%) 97 07/21/17 21:00 Vital Signs Period Temp Pulse Resp BP Sys/Glass Pulse Ox Last 24 Hr 98.3 F-98.4 F 82-99 18-22 139-163/95-105 97-97 Intake & Output 07/21/17 07/22/17 07/22/17 23:59 07:59 15:59 Intake Total 1923 731 Output Total 400 Balance 1923 331 Intake: IV 1411 581 D5-Ns - 1,000 ml @ 83 mls 1411 581 /hr IV ASDIR MAT Rx#: [id number] IVPB 512 150 Output: Urine 400 Void 400 Other: Voiding Method Toilet Constitutional: Yes: No Distress, Calm, Obese Eyes: Yes: Conjunctiva Clear, EOM Intact HENT: Yes: Atraumatic, Normocephalic Neck: Yes: Supple, Trachea Midline Cardiovascular: Yes: Regular Rate and Rhythm, S1, S2 Respiratory: Yes: Regular Gastrointestinal: Yes: Soft, Distention, Hyperactive Bowel Sounds, Tenderness, Tenderness, Epigastrium. No: Tenderness, Rebound ...Rectal Exam: Yes: Deferred Genitourinary: No: CVA Tenderness - Left, CVA Tenderness - Right Edema: No Peripheral Pulses WNL: Yes Peripheral Pulses: Left Radial: 2+, Right Radial: 2+, Left Doralis Pedis: 2+, Right Dorsalis Pedis: 2+, Left Femoral: 2+, Right Femoral: 2+ Neurological: Yes: Alert, Oriented Psychiatric: Yes: Alert, Oriented Labs: CBC, BMP 07/22/17 06:00 INR, PTT INR 1.04 (0.82-1.09) 07/18/17 01:57 - ....Imaging X-ray: Report Reviewed, Image Reviewed Problem List - Problems (1) Small bowel obstruction Assessment/Plan: 56 yo male with 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 He has a small bowel obstruction likely due to cancer recurrence. Reporting having passed flatus and BM via ileostomy. xray abdomen shows no significant interval improvement compared to previous. Surgery would not benefit this patient at this point. Discussed this with the patient his daughter and . IVF hydration NPO for now Replace NGT if vomiting returns Consider PPN, optimize nutrtional status repeat abdominal Xray in AM repeat labs in AM, replace electrolytes He prefers to continued non-operatively. Reccommend family meeting and palliative care consult. Consider transfer for continuity of care with medical oncologist Dr. Doss Code(s): K56.609 - UNSP INTESTNL OBST, UNSP TO PARTIAL VERSUS COMPLETE OBST (2) Abdominal carcinomatosis Code(s): C76.2 - MALIGNANT NEOPLASM OF ABDOMEN (3) Intraabdominal fluid collection Code(s): R18.8 - OTHER ASCITES (4) ZAHRA (acute kidney injury) Code(s): N17.9 - ACUTE KIDNEY FAILURE, UNSPECIFIED (5) Hydronephrosis due to obstruction of ureter Code(s): N13.2 - HYDRONEPHROSIS WITH RENAL AND URETERAL CALCULOUS OBSTRUCTION (6) HTN (hypertension) Code(s): I10 - ESSENTIAL (PRIMARY) HYPERTENSION Qualifiers: Hypertension type: essential hypertension Qualified Code(s): I10 - Essential (primary) hypertension
[2017-07-22 09:12] LABS: GLUCOSE,RANDOM 99 mg/dL (74-106)
[2017-07-22 09:13] LABS: ANION GAP 9 (8-16); BILIRUBIN,TOTAL 0.7 mg/dL (0.2-1.0); CALCIUM 8.3 mg/dL (8.5-10.1); CO2 28 mmol/L (21-32); CREATININE 1.1 mg/dL (0.7-1.3); SGOT/AST 20 U/L (15-37); TOT PROT 6.4 g/dl (6.4-8.2)
[2017-07-22 09:14] LABS: ALK PHOS 61 U/L (45-117); SGPT/ALT 29 U/L (12-78)
[2017-07-22] MEDS: amLODIPine BESYLATE 10 MG TABLET (FP) PO SCH (10:20)
[2017-07-22] MEDS: METOPROLOL SUCCINATE 50 MG TAB.SR.24H (FP) PO SCH (10:20)
[2017-07-22] MEDS: LOSARTAN POTASSIUM 50 MG TABLET (FP) PO SCH (10:20)
[2017-07-22] MEDS: FAMOTIDINE IV 20 MG/12 ML VIAL IVPUSH SCH ×2 (10:20→22:36)
[2017-07-22] MEDS: LORazepam 2 MG/ML SDV VIAL IVPUSH PRN ×2 (13:09→18:35)
--- NOTE | 2017-07-22 14:06 | PN ---
Progress Note, Physician - Current Medication List Current Medications: Active Medications Acetaminophen (Tylenol -) 650 mg PO Q6H PRN PRN Reason: FEVER OR PAIN Last Admin: 07/22/17 00:34 Dose: 650 mg Amlodipine Besylate (Norvasc -) 10 mg PO DAILY [facility] Last Admin: 07/22/17 10:20 Dose: 10 mg Epinephrine (S-2) 1 vial IH Q15H [facility] Stop: 07/19/17 18:16 Hydromorphone HCl (Dilaudid Injection -) 1 mg IVPB Q4H PRN PRN Reason: PAIN Last Admin: 07/22/17 10:16 Dose: 1 mg Cefoxitin Sodium 2 gm/ (Dextrose) 100 mls @ 100 mls/hr IVPB Q6H-IV MAT Last Admin: 07/22/17 10:20 Dose: 100 mls/hr Dextrose/Sodium Chloride (D5-Ns -) 1,000 mls @ 83 mls/hr IV ASDIR MAT Last Admin: 07/22/17 02:55 Dose: 83 mls/hr Famotidine (Pepcid 20 Mg/12 Ml Push) 20 mg in 12 mls @ 144 mls/hr IVPUSH BID MAT Last Admin: 07/22/17 10:20 Dose: 144 mls/hr Lorazepam (Ativan Injection -) 1 mg IVPUSH Q6H PRN PRN Reason: ANXIETY Last Admin: 07/22/17 13:09 Dose: 1 mg Losartan Potassium (Cozaar -) 50 mg PO DAILY [facility] Last Admin: 07/22/17 10:20 Dose: 50 mg Metoprolol Succinate (Toprol Xl -) 50 mg PO DAILY [facility] Last Admin: 07/22/17 10:20 Dose: 50 mg Ondansetron HCl (Zofran Injection) 8 mg IVPB Q6H PRN PRN Reason: NAUSEA Oxycodone HCl (Roxicodone -) 15 mg PO Q6H PRN PRN Reason: PAIN Last Admin: 07/21/17 20:37 Dose: 15 mg - Objective Vital Signs: Vital Signs Temperature 98 F 07/22/17 10:00 Pulse Rate 88 07/22/17 10:00 Respiratory Rate 18 07/22/17 10:00 Blood Pressure 150/90 07/22/17 10:00 O2 Sat by Pulse Oximetry (%) 97 07/22/17 09:00 Cardiovascular: Yes: S1, S2 Respiratory: Yes: CTA Bilaterally Gastrointestinal: Yes: Normal Bowel Sounds, Soft, Tenderness Labs: CBC, BMP 07/22/17 06:00 07/22/17 06:00 INR, PTT INR 1.04 (0.82-1.09) 07/18/17 01:57 Problem List - Problems (1) Small bowel obstruction Assessment/Plan: per surgery follow xray follow labs Code(s): K56.609 - UNSP INTESTNL OBST, UNSP TO PARTIAL VERSUS COMPLETE OBST (2) Abdominal carcinomatosis Code(s): C76.2 - MALIGNANT NEOPLASM OF ABDOMEN
[2017-07-22] MEDS ORDERED: PT OWN MED DRAWER 7, Y5N ONE (20:14)
[2017-07-23] MEDS: HYDROmorphone HCL CARPU-JECT 1 MG/1 ML DISP.SYRIN IVPB PRN ×2 (01:19→07:00)
[2017-07-23] MEDS: CEFOXITIN SODIUM 2 GM in DEXTROSE 5%-WATER - 100 ML IVPB SCH ×4 (02:20→20:40)
[2017-07-23 07:58] LABS: BASO % 0.2 % (0-2.0); EOS % 0.8 % (0-4.5); MCH 27.5 pg (25.7-33.7); MCHC 33.1 g/dl (32.0-35.9); NEUT % 67.5 % (42.8-82.8); PLATELET COUNT 276 K/MM3 (134-434); RDW 16.1 % (11.9-15.9); WHITE BLOOD COUNT 6.5 K/mm3 (4.0-10.0)
[2017-07-23 07:59] LABS: ALK PHOS 58 U/L (45-117); ANION GAP 9 (8-16); BILIRUBIN,TOTAL 1.4 mg/dL (0.2-1.0); CALCIUM 8.9 mg/dL (8.5-10.1); CO2 27 mmol/L (21-32); GLUCOSE,RANDOM 118 mg/dL (74-106); SGOT/AST 12 U/L (15-37); SGPT/ALT 25 U/L (12-78); TOT PROT 6.5 g/dl (6.4-8.2)
[2017-07-23] MEDS: METOPROLOL SUCCINATE 50 MG TAB.SR.24H (FP) PO SCH (10:24)
[2017-07-23] MEDS: LOSARTAN POTASSIUM 50 MG TABLET (FP) PO SCH (10:24)
[2017-07-23] MEDS: amLODIPine BESYLATE 10 MG TABLET (FP) PO SCH (10:24)
[2017-07-23] MEDS: FAMOTIDINE IV 20 MG/12 ML VIAL IVPUSH SCH ×2 (10:27→21:35)
--- NOTE | 2017-07-23 12:21 | PN ---
Progress Note, Physician Chief Complaint: abdominal pain and vomiting History of Present Illness: 56 yo male PMH HTN, stage 3 rectal cancer, found now to have carcinomatosis. Presented with vomiting imaging consistent with an SBO, He reports having flatus in the interim. NGT decompression appears to be working. Abdominal pain last night obtained an Xray that showed persistant distension. no reported vomiting overnight, passing flatus into the appliance. - Current Medication List Current Medications: Active Medications Acetaminophen (Tylenol -) 650 mg PO Q6H PRN PRN Reason: FEVER OR PAIN Last Admin: 07/22/17 00:34 Dose: 650 mg Amlodipine Besylate (Norvasc -) 10 mg PO DAILY [facility] Last Admin: 07/23/17 10:24 Dose: 10 mg Epinephrine (S-2) 1 vial IH Q15H [facility] Stop: 07/19/17 18:16 Hydromorphone HCl (Dilaudid Injection -) 1 mg IVPB Q4H PRN PRN Reason: PAIN Cefoxitin Sodium 2 gm/ (Dextrose) 100 mls @ 100 mls/hr IVPB Q6H-IV [facility] Last Admin: 07/23/17 10:16 Dose: Not Given Dextrose/Sodium Chloride (D5-Ns -) 1,000 mls @ 83 mls/hr IV ASDIR MAT Last Admin: 07/22/17 20:45 Dose: 83 mls/hr Famotidine (Pepcid 20 Mg/12 Ml Push) 20 mg in 12 mls @ 144 mls/hr IVPUSH BID [facility] Last Admin: 07/23/17 10:27 Dose: 144 mls/hr Lorazepam (Ativan Injection -) 1 mg IVPUSH Q6H PRN PRN Reason: ANXIETY Last Admin: 07/22/17 18:35 Dose: 1 mg Losartan Potassium (Cozaar -) 50 mg PO DAILY [facility] Last Admin: 07/23/17 10:24 Dose: 50 mg Metoprolol Succinate (Toprol Xl -) 50 mg PO DAILY [facility] Last Admin: 07/23/17 10:24 Dose: 50 mg Ondansetron HCl (Zofran Injection) 8 mg IVPB Q6H PRN PRN Reason: NAUSEA Oxycodone HCl (Roxicodone -) 15 mg PO Q6H PRN PRN Reason: PAIN Last Admin: 07/21/17 20:37 Dose: 15 mg - Objective Vital Signs: Vital Signs Temperature 99.4 F 07/23/17 07:05 Pulse Rate 99 H 07/23/17 07:05 Respiratory Rate 20 07/23/17 07:05 Blood Pressure 137/90 07/23/17 07:05 O2 Sat by Pulse Oximetry (%) 97 07/22/17 21:00 Vital Signs Period Temp Pulse Resp BP Sys/Glass Pulse Ox Last 24 Hr 97.9 F-99.4 F 99-111 20-20 137-157/90-113 97 Constitutional: Yes: No Distress, Calm Eyes: Yes: Conjunctiva Clear, EOM Intact HENT: Yes: Atraumatic, Normocephalic Neck: Yes: Supple, Trachea Midline Cardiovascular: Yes: Regular Rate and Rhythm, S1, S2 Respiratory: Yes: Regular, CTA Bilaterally Gastrointestinal: Yes: Normal Bowel Sounds, Soft ...Rectal Exam: No: Deferred Genitourinary: No: CVA Tenderness - Left, CVA Tenderness - Right Extremities: No: Cool, Cyanosis Edema: No Peripheral Pulses WNL: Yes Neurological: Yes: Alert, Oriented Psychiatric: Yes: Alert, Oriented Labs: CBC, BMP 07/23/17 07:00 07/23/17 07:00 INR, PTT INR 1.04 (0.82-1.09) 07/18/17 01:57 Problem List - Problems (1) Small bowel obstruction Assessment/Plan: 56 yo male with 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 He has a small bowel obstruction likely due to cancer recurrence. Reporting having passed flatus and BM via ileostomy. xray abdomen shows no significant interval improvement compared to previous. Surgery would not benefit this patient at this point. Discussed this with the patient his daughter and . IVF hydration clears as tolerated Replace NGT if vomiting returns Consider PPN, optimize nutrtional status repeat labs in AM, replace electrolytes He prefers to continued non-operatively. Reccommend family meeting and palliative care consult. Consider transfer for continuity of care with medical oncologist Dr. Doss Code(s): K56.609 - UNSP INTESTNL OBST, UNSP TO PARTIAL VERSUS COMPLETE OBST (2) Abdominal carcinomatosis Code(s): C76.2 - MALIGNANT NEOPLASM OF ABDOMEN (3) Intraabdominal fluid collection Code(s): R18.8 - OTHER ASCITES (4) ZAHRA (acute kidney injury) Code(s): N17.9 - ACUTE KIDNEY FAILURE, UNSPECIFIED (5) Hydronephrosis due to obstruction of ureter Code(s): N13.2 - HYDRONEPHROSIS WITH RENAL AND URETERAL CALCULOUS OBSTRUCTION (6) HTN (hypertension) Code(s): I10 - ESSENTIAL (PRIMARY) HYPERTENSION Qualifiers: Hypertension type: essential hypertension Qualified Code(s): I10 - Essential (primary) hypertension
--- NOTE | 2017-07-23 14:43 | PN ---
Progress Note, Physician - Current Medication List Current Medications: Active Medications Acetaminophen (Tylenol -) 650 mg PO Q6H PRN PRN Reason: FEVER OR PAIN Last Admin: 07/22/17 00:34 Dose: 650 mg Amlodipine Besylate (Norvasc -) 10 mg PO DAILY [facility] Last Admin: 07/23/17 10:24 Dose: 10 mg Epinephrine (S-2) 1 vial IH Q15H [facility] Stop: 07/19/17 18:16 Hydromorphone HCl (Dilaudid Injection -) 1 mg IVPB Q4H PRN PRN Reason: PAIN Cefoxitin Sodium 2 gm/ (Dextrose) 100 mls @ 100 mls/hr IVPB Q6H-IV MAT Last Admin: 07/23/17 10:16 Dose: Not Given Dextrose/Sodium Chloride (D5-Ns -) 1,000 mls @ 83 mls/hr IV ASDIR [facility] Last Admin: 07/22/17 20:45 Dose: 83 mls/hr Famotidine (Pepcid 20 Mg/12 Ml Push) 20 mg in 12 mls @ 144 mls/hr IVPUSH BID [facility] Last Admin: 07/23/17 10:27 Dose: 144 mls/hr Lorazepam (Ativan Injection -) 1 mg IVPUSH Q6H PRN PRN Reason: ANXIETY Last Admin: 07/22/17 18:35 Dose: 1 mg Losartan Potassium (Cozaar -) 50 mg PO DAILY [facility] Last Admin: 07/23/17 10:24 Dose: 50 mg Metoprolol Succinate (Toprol Xl -) 50 mg PO DAILY [facility] Last Admin: 07/23/17 10:24 Dose: 50 mg Ondansetron HCl (Zofran Injection) 8 mg IVPB Q6H PRN PRN Reason: NAUSEA Oxycodone HCl (Roxicodone -) 15 mg PO Q6H PRN PRN Reason: PAIN Last Admin: 07/21/17 20:37 Dose: 15 mg - Objective Vital Signs: Vital Signs Temperature 99.4 F 07/23/17 07:05 Pulse Rate 99 H 07/23/17 07:05 Respiratory Rate 20 07/23/17 07:05 Blood Pressure 137/90 07/23/17 07:05 O2 Sat by Pulse Oximetry (%) 97 07/22/17 21:00 Cardiovascular: Yes: Regular Rate and Rhythm Respiratory: Yes: Regular, CTA Bilaterally Gastrointestinal: Yes: Normal Bowel Sounds, Soft Labs: CBC, BMP 07/23/17 07:00 07/23/17 07:00 INR, PTT INR 1.04 (0.82-1.09) 07/18/17 01:57 Problem List - Problems (1) Small bowel obstruction Assessment/Plan: per surgery follow xray follow labs clear liquids Code(s): K56.609 - UNSP INTESTNL OBST, UNSP TO PARTIAL VERSUS COMPLETE OBST (2) Abdominal carcinomatosis Code(s): C76.2 - MALIGNANT NEOPLASM OF ABDOMEN
[2017-07-23] MEDS: LIDOCAINE 5% TOPICAL PATCH TP SCH (15:14)
[2017-07-23] MEDS: ACETAMINOPHEN 325 MG TABLET (FP) PO PRN ×2 (15:14→23:42)
[2017-07-23] MEDS: oxyCODONE HCL 5 MG TABLET PO PRN ×2 (15:14→23:40)
[2017-07-23] MEDS: DEXTROSE 5%-NORMAL SALINE 1,000 ML IV SCH (18:40)
[2017-07-23] MEDS ORDERED: PT OWN MED DRAWER 7, Y5N ONE ×2 (20:30→21:24)
[2017-07-23] MEDS: LORazepam 2 MG/ML SDV VIAL IVPUSH PRN (20:40)
[2017-07-23] MEDS: LIDOCAINE PATCH REMOVAL MC SCH (21:39)
[2017-07-24] MEDS: HYDROmorphone HCL CARPU-JECT 2 MG/1 ML DISP.SYRIN IVPB PRN (01:20)
[2017-07-24] MEDS ORDERED: PT OWN MED DRAWER 7, Y5N ONE (02:33)
[2017-07-24] MEDS: CEFOXITIN SODIUM 2 GM in DEXTROSE 5%-WATER - 100 ML IVPB SCH ×4 (02:50→20:44)
[2017-07-24] MEDS: amLODIPine BESYLATE 10 MG TABLET (FP) PO SCH (10:39)
[2017-07-24] MEDS: LIDOCAINE 5% TOPICAL PATCH TP SCH (10:39)
[2017-07-24] MEDS: METOPROLOL SUCCINATE 50 MG TAB.SR.24H (FP) PO SCH (10:39)
[2017-07-24] MEDS: LOSARTAN POTASSIUM 50 MG TABLET (FP) PO SCH (10:39)
[2017-07-24] MEDS: FAMOTIDINE IV 20 MG/12 ML VIAL IVPUSH SCH ×2 (10:40→21:12)
--- NOTE | 2017-07-24 10:50 | PN ---
Progress Note (short form) - Note Progress Note: 56 yo male PMH HTN, stage 3 rectal cancer, found now to have carcinomatosis. Presented with vomiting imaging consistent with an SBO, He reports having flatus in the interim. Abdominal pain has improved, the abdominal xrays from showed persistent partial SBO pattern. Despite this her has been tolerating clears, no vomiting passing flatus and semi-formed stool into the appliance. On exam he is less tender in RLQ. Surgery would not benefit this patient at this point. Discussed this with the patient his daughter and . He has expressed interest in speaking to psychology/ support system for cancer patients. IVF hydration full liquids, advance as tolerated Consider PPN, optimize nutritional status repeat labs in AM, replace electrolytes He prefers to continued non-operatively. Reccommend family meeting and palliative care consult. Problem List - Problems (1) Small bowel obstruction Code(s): K56.609 - UNSP INTESTNL OBST, UNSP TO PARTIAL VERSUS COMPLETE OBST (2) Abdominal carcinomatosis Code(s): C76.2 - MALIGNANT NEOPLASM OF ABDOMEN (3) Intraabdominal fluid collection Code(s): R18.8 - OTHER ASCITES (4) ZAHRA (acute kidney injury) Code(s): N17.9 - ACUTE KIDNEY FAILURE, UNSPECIFIED (5) Hydronephrosis due to obstruction of ureter Code(s): N13.2 - HYDRONEPHROSIS WITH RENAL AND URETERAL CALCULOUS OBSTRUCTION (6) HTN (hypertension) Code(s): I10 - ESSENTIAL (PRIMARY) HYPERTENSION Qualifiers: Hypertension type: essential hypertension Qualified Code(s): I10 - Essential (primary) hypertension
[2017-07-24] MEDS: oxyCODONE HCL 5 MG TABLET PO PRN ×2 (12:49→18:54)
[2017-07-24] MEDS: SIMETHICONE 80 MG TAB.CHEW (FP) PO PRN (12:50)
[2017-07-24] MEDS: ACETAMINOPHEN 325 MG TABLET (FP) PO PRN (12:50)
[2017-07-24] MEDS: DEXTROSE 5%-NORMAL SALINE 1,000 ML IV SCH (14:39)
--- NOTE | 2017-07-24 15:21 | PN ---
Progress Note, Physician Chief Complaint: AWAEK CRYING WANT TO BE HELPED WANTS TO CHANGE ONCOLOGISTS FROM DR MARTIN TO DR MCNAMARA - Current Medication List Current Medications: Active Medications Acetaminophen (Tylenol -) 650 mg PO Q6H PRN PRN Reason: FEVER OR PAIN Last Admin: 07/24/17 12:50 Dose: 650 mg Amlodipine Besylate (Norvasc -) 10 mg PO DAILY [facility] Last Admin: 07/24/17 10:39 Dose: 10 mg Epinephrine (S-2) 1 vial IH Q15H [facility] Stop: 07/19/17 18:16 Hydromorphone HCl (Dilaudid Injection -) 1 mg IVPB Q4H PRN PRN Reason: PAIN Last Admin: 07/24/17 01:20 Dose: 1 mg Cefoxitin Sodium 2 gm/ (Dextrose) 100 mls @ 100 mls/hr IVPB Q6H-IV MAT Last Admin: 07/24/17 14:39 Dose: 100 mls/hr Dextrose/Sodium Chloride (D5-Ns -) 1,000 mls @ 83 mls/hr IV ASDIR [facility] Last Admin: 07/24/17 14:39 Dose: 83 mls/hr Famotidine (Pepcid 20 Mg/12 Ml Push) 20 mg in 12 mls @ 144 mls/hr IVPUSH BID [facility] Last Admin: 07/24/17 10:40 Dose: 144 mls/hr Lidocaine (Lidoderm Patch -) 1 patch TP DAILY [facility] Last Admin: 07/24/17 10:39 Dose: 1 patch Losartan Potassium (Cozaar -) 50 mg PO DAILY [facility] Last Admin: 07/24/17 10:39 Dose: 50 mg Metoprolol Succinate (Toprol Xl -) 50 mg PO DAILY [facility] Last Admin: 07/24/17 10:39 Dose: 50 mg Miscellaneous (Lidoderm Patch Removal) 1 each MC DAILY@2200 [facility] Last Admin: 07/23/17 21:39 Dose: 1 each Ondansetron HCl (Zofran Injection) 8 mg IVPB Q6H PRN PRN Reason: NAUSEA Simethicone (Mylicon -) 80 mg PO Q4H PRN PRN Reason: GAS Last Admin: 07/24/17 12:50 Dose: 80 mg - Objective Vital Signs: Vital Signs Temperature 98.3 F 07/24/17 13:54 Pulse Rate 98 H 07/24/17 13:54 Respiratory Rate 16 07/24/17 13:54 Blood Pressure 151/90 07/24/17 13:54 O2 Sat by Pulse Oximetry (%) 97 07/23/17 21:00 Constitutional: Yes: Mild Distress Eyes: Yes: WNL HENT: Yes: WNL Neck: Yes: WNL Cardiovascular: Yes: WNL Respiratory: Yes: WNL Gastrointestinal: Yes: Other (COLOSTOMY) Genitourinary: Yes: WNL Musculoskeletal: Yes: WNL Extremities: Yes: WNL Edema: No Peripheral Pulses WNL: Yes Integumentary: Yes: WNL Wound/Incision: Yes: Clean/Dry Neurological: Yes: WNL ...Motor Strength: WNL Psychiatric: Yes: Other Labs: CBC, BMP 07/23/17 07:00 07/23/17 07:00 INR, PTT INR 1.04 (0.82-1.09) 07/18/17 01:57 Problem List - Problems (1) ZAHRA (acute kidney injury) Code(s): N17.9 - ACUTE KIDNEY FAILURE, UNSPECIFIED (2) Small bowel obstruction Code(s): K56.609 - UNSP INTESTNL OBST, UNSP TO PARTIAL VERSUS COMPLETE OBST (3) Abdominal carcinomatosis Code(s): C76.2 - MALIGNANT NEOPLASM OF ABDOMEN (4) Abnormal abdominal CT scan Code(s): R93.5 - ABN FINDINGS ON DX IMAGING OF ABD REGIONS, INC RETROPERITON (5) Acute abdomen Code(s): R10.0 - ACUTE ABDOMEN (7) Rectal adenocarcinoma Code(s): C20 - MALIGNANT NEOPLASM OF RECTUM Assessment/Plan FEELING BETTER ON LIQUID DIET IV ABX PAIN CONTROL WOULD LIKE TO HAVE DR MCNAMARA BE HIS ONCOLOGIST OOB TO CHAIR SX EVAL APPRECIATED DVT PROPHYLAXIS LEXAPRO DAILY
[2017-07-24] MEDS: ESCITALOPRAM OXALATE 10 MG TABLET (FP) PO SCH (17:58)
[2017-07-24] MEDS ORDERED: LORazepam 2 MG/ML SDV VIAL IVPUSH PRN (20:24)
[2017-07-24] MEDS: LIDOCAINE PATCH REMOVAL MC SCH (21:12)
[2017-07-24] MEDS: PROMETHAZINE HCL 25 MG/1 ML VIAL IVPB PRN (21:53)
[2017-07-25] MEDS: HYDROmorphone HCL CARPU-JECT 2 MG/1 ML DISP.SYRIN IVPB PRN ×3 (01:20→14:58)
[2017-07-25] MEDS: CEFOXITIN SODIUM 2 GM in DEXTROSE 5%-WATER - 100 ML IVPB SCH ×4 (03:02→21:07)
[2017-07-25] MEDS: DEXTROSE 5%-NORMAL SALINE 1,000 ML IV SCH ×2 (08:10→16:02)
[2017-07-25] MEDS: ACETAMINOPHEN 325 MG TABLET (FP) PO PRN (08:12)
[2017-07-25] MEDS: amLODIPine BESYLATE 10 MG TABLET (FP) PO SCH ×2 (08:12→11:21)
[2017-07-25] MEDS: oxyCODONE HCL 5 MG TABLET PO PRN (08:13)
[2017-07-25 08:16] LABS: BASO % 0.1 % (0-2.0); EOS % 1.1 % (0-4.5); MCH 27.2 pg (25.7-33.7); MCHC 32.5 g/dl (32.0-35.9); MEAN CELL VOLUME 83.5 fl (80-96); MEAN PLT VOLUME 8.3 fl (7.5-11.1); NEUT % 63.7 % (42.8-82.8); PLATELET COUNT 289 K/MM3 (134-434); RDW 16.2 % (11.9-15.9); WHITE BLOOD COUNT 5.1 K/mm3 (4.0-10.0)
[2017-07-25] MEDS: LOSARTAN POTASSIUM 50 MG TABLET (FP) PO SCH ×2 (08:20→11:21)
[2017-07-25] MEDS: METOPROLOL SUCCINATE 50 MG TAB.SR.24H (FP) PO SCH ×2 (08:20→11:21)
[2017-07-25] MEDS: SIMETHICONE 80 MG TAB.CHEW (FP) PO PRN ×2 (08:20→21:03)
[2017-07-25 08:39] LABS: ALBUMIN 2.9 g/dl (3.4-5.0); ANION GAP 13 (8-16); BILIRUBIN,TOTAL 0.8 mg/dL (0.2-1.0); CALCIUM 8.5 mg/dL (8.5-10.1); CO2 24 mmol/L (21-32); CREATININE 0.9 mg/dL (0.7-1.3); GLUCOSE,RANDOM 135 mg/dL (74-106); SGOT/AST 10 U/L (15-37); SGPT/ALT 21 U/L (12-78); TOT PROT 6.5 g/dl (6.4-8.2)
[2017-07-25 08:40] LABS: ALK PHOS 59 U/L (45-117)
--- NOTE | 2017-07-25 09:42 | PN ---
Progress Note, Physician Chief Complaint: abdominal pain and vomiting History of Present Illness: 56 yo male PMH HTN, stage 3 rectal cancer, found now to have carcinomatosis. Presented with vomiting imaging consistent with an SBO, He reports having flatus in the interim. NGT decompression appears to be working. Abdominal pain last night obtained an Xray that showed persistant distension. He is tolerating his diet, no reported vomiting, passing flatus into the appliance. seems in better spirits and slept well last night. - Current Medication List Current Medications: Active Medications Acetaminophen (Tylenol -) 650 mg PO Q6H PRN PRN Reason: FEVER OR PAIN Last Admin: 07/25/17 08:12 Dose: 650 mg Amlodipine Besylate (Norvasc -) 10 mg PO DAILY [facility] Last Admin: 07/25/17 08:12 Dose: 10 mg Escitalopram Oxalate (Lexapro -) 10 mg PO DAILY [facility] Last Admin: 07/24/17 17:58 Dose: 10 mg Hydromorphone HCl (Dilaudid Injection -) 1 mg IVPB Q4H PRN PRN Reason: PAIN Last Admin: 07/25/17 05:32 Dose: 1 mg Cefoxitin Sodium 2 gm/ (Dextrose) 100 mls @ 100 mls/hr IVPB Q6H-IV MAT Last Admin: 07/25/17 08:10 Dose: 100 mls/hr Dextrose/Sodium Chloride (D5-Ns -) 1,000 mls @ 83 mls/hr IV ASDIR [facility] Last Admin: 07/25/17 08:10 Dose: 83 mls/hr Famotidine (Pepcid 20 Mg/12 Ml Push) 20 mg in 12 mls @ 144 mls/hr IVPUSH BID [facility] Last Admin: 07/24/17 21:12 Dose: 144 mls/hr Lidocaine (Lidoderm Patch -) 1 patch TP DAILY [facility] Last Admin: 07/24/17 10:39 Dose: 1 patch Lorazepam (Ativan Injection -) 1 mg IVPUSH Q6H PRN PRN Reason: ANXIETY Last Admin: 07/24/17 20:49 Dose: 1 mg Losartan Potassium (Cozaar -) 50 mg PO DAILY [facility] Last Admin: 07/25/17 08:20 Dose: 50 mg Metoprolol Succinate (Toprol Xl -) 50 mg PO DAILY [facility] Last Admin: 07/25/17 08:20 Dose: 50 mg Miscellaneous (Lidoderm Patch Removal) 1 each MC DAILY@2200 [facility] Last Admin: 07/24/17 21:12 Dose: 1 each Oxycodone HCl (Roxicodone -) 15 mg PO Q6H PRN PRN Reason: PAIN SCALE 5 -7 Last Admin: 07/25/17 08:13 Dose: 15 mg Promethazine HCl (Phenergan Injection -) 25 mg IVPB Q6H PRN PRN Reason: NAUSEA Last Admin: 07/24/17 21:53 Dose: 25 mg Simethicone (Mylicon -) 80 mg PO Q4H PRN PRN Reason: GAS Last Admin: 07/25/17 08:20 Dose: 80 mg - Objective Vital Signs: Vital Signs Temperature 98.2 F 07/25/17 06:12 Pulse Rate 99 H 07/25/17 06:12 Respiratory Rate 18 07/25/17 06:12 Blood Pressure 143/90 07/25/17 06:12 O2 Sat by Pulse Oximetry (%) 97 07/23/17 21:00 Vital Signs Period Temp Pulse Resp BP Sys/Glass Pulse Ox Last 24 Hr 98.0 F-98.3 F 92-99 16-20 143-151/88-90 Constitutional: Yes: Well Nourished, No Distress, Calm Eyes: Yes: Conjunctiva Clear, EOM Intact HENT: Yes: Atraumatic, Normocephalic Neck: Yes: Supple, Trachea Midline Cardiovascular: Yes: Regular Rate and Rhythm, S1, S2. No: Murmur Respiratory: Yes: Regular, CTA Bilaterally Gastrointestinal: Yes: Soft, Abdomen, Obese, Distention, Hypoactive Bowel Sounds , Tenderness. No: Tenderness, Epigastrium, Tenderness, Rebound ...Rectal Exam: Yes: Deferred Genitourinary: No: CVA Tenderness - Left, CVA Tenderness - Right Musculoskeletal: No: Muscle Pain, Muscle Weakness Extremities: No: Cool, Cyanosis Edema: No Peripheral Pulses WNL: Yes Peripheral Pulses: Left Doralis Pedis: 2+, Right Dorsalis Pedis: 2+ Integumentary: No: Jaundice, Rash Neurological: Yes: Alert, Oriented Psychiatric: Yes: Alert, Oriented Labs: CBC, BMP 07/25/17 06:40 07/25/17 06:40 Abnormal Lab Results 07/25/17 07/25/17 07/25/17 06:40 06:40 06:40 RDW 16.2 H Monocytes % 17.1 H Random Glucose 135 H AST 10 L Albumin 2.9 L Prealbumin 14.3 L Problem List - Problems (1) Small bowel obstruction Assessment/Plan: 56 yo male with 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 He has a small bowel obstruction likely due to cancer recurrence. Reporting having passed flatus and BM via ileostomy. Surgery would not benefit this patient at this point. He prefers to continued non- operatively. IVF hydration Full liquid diet as tolerated optimize nutritional status will follow peripherally Code(s): K56.609 - UNSP INTESTNL OBST, UNSP TO PARTIAL VERSUS COMPLETE OBST (2) Abdominal carcinomatosis Code(s): C76.2 - MALIGNANT NEOPLASM OF ABDOMEN (3) Intraabdominal fluid collection Code(s): R18.8 - OTHER ASCITES (4) ZAHRA (acute kidney injury) Code(s): N17.9 - ACUTE KIDNEY FAILURE, UNSPECIFIED (5) Hydronephrosis due to obstruction of ureter Code(s): N13.2 - HYDRONEPHROSIS WITH RENAL AND URETERAL CALCULOUS OBSTRUCTION (6) HTN (hypertension) Code(s): I10 - ESSENTIAL (PRIMARY) HYPERTENSION Qualifiers: Hypertension type: essential hypertension Qualified Code(s): I10 - Essential (primary) hypertension
--- NOTE | 2017-07-25 10:22 | CON.PSL ---
Psychology Consult Consult Specialty:: Clinical Psychology Referred by:: Dr. Fritz Reason for Consultation:: Depressed mood. History Provided By: Patient Limitations to Obtaining History: No Limitations Current Medications: Active Medications Acetaminophen (Tylenol -) 650 mg PO Q6H PRN PRN Reason: FEVER OR PAIN Last Admin: 07/25/17 08:12 Dose: 650 mg Amlodipine Besylate (Norvasc -) 10 mg PO DAILY [facility] Last Admin: 07/25/17 08:12 Dose: 10 mg Escitalopram Oxalate (Lexapro -) 10 mg PO DAILY [facility] Last Admin: 07/24/17 17:58 Dose: 10 mg Hydromorphone HCl (Dilaudid Injection -) 1 mg IVPB Q4H PRN PRN Reason: PAIN Last Admin: 07/25/17 05:32 Dose: 1 mg Cefoxitin Sodium 2 gm/ (Dextrose) 100 mls @ 100 mls/hr IVPB Q6H-IV [facility] Last Admin: 07/25/17 08:10 Dose: 100 mls/hr Dextrose/Sodium Chloride (D5-Ns -) 1,000 mls @ 83 mls/hr IV ASDIR [facility] Last Admin: 07/25/17 08:10 Dose: 83 mls/hr Famotidine (Pepcid 20 Mg/12 Ml Push) 20 mg in 12 mls @ 144 mls/hr IVPUSH BID [facility] Last Admin: 07/24/17 21:12 Dose: 144 mls/hr Lidocaine (Lidoderm Patch -) 1 patch TP DAILY [facility] Last Admin: 07/24/17 10:39 Dose: 1 patch Lorazepam (Ativan Injection -) 1 mg IVPUSH Q6H PRN PRN Reason: ANXIETY Last Admin: 07/24/17 20:49 Dose: 1 mg Losartan Potassium (Cozaar -) 50 mg PO DAILY [facility] Last Admin: 07/25/17 08:20 Dose: 50 mg Metoprolol Succinate (Toprol Xl -) 50 mg PO DAILY [facility] Last Admin: 07/25/17 08:20 Dose: 50 mg Miscellaneous (Lidoderm Patch Removal) 1 each MC DAILY@2200 [facility] Last Admin: 07/24/17 21:12 Dose: 1 each Oxycodone HCl (Roxicodone -) 15 mg PO Q6H PRN PRN Reason: PAIN SCALE 5 -7 Last Admin: 07/25/17 08:13 Dose: 15 mg Promethazine HCl (Phenergan Injection -) 25 mg IVPB Q6H PRN PRN Reason: NAUSEA Last Admin: 07/24/17 21:53 Dose: 25 mg Simethicone (Mylicon -) 80 mg PO Q4H PRN PRN Reason: GAS Last Admin: 07/25/17 08:20 Dose: 80 mg Allergies: Allergies Allergy/AdvReac Type Severity Reaction Status Date / Time phenol [From Chloraseptic] Allergy Severe Difficulty Verified 07/19/17 17:00 Breathing sodium phenolate Allergy Severe Difficulty Verified 07/19/17 17:00 [From Chloraseptic] Breathing Does patient have pain?: Yes (Stomach and back pain) Pain Location Body Site: Abdomen Pain Description: Non-Descriptive Hx Alcohol Use: Yes (Past Hx of Alcohol use limited to 1.5 glasses of wine. Denies hard liquor.) Hx Substance Use: Yes (Past Hx of Marijuana use was limited.) Substance Use Type: Marijuana Hx Substance Use Treatment: No - Family History Family History: Unremarkable (His and he had separared but she now has been involved with him and very supportive. He has a daughter who also is very supportive. There are other siblings in the area.) Current Medical Exam-Psy Attention: Alert Orientation: Time, Person, Place Immediate Term Memory: 3/3 (He was unable to recall any of the words presented earlier after about 20 minutes.) Expressive: Coherent Receptive: Age Appropriate Comprehension of Spoken Words Hallucinations: Absent Thought Process: Intact Depression: Mild (The patient described his depression as ranging from a 2-3. his affect was euthymic.) Hopelessness: No Loss of Interest: Yes (He lost interest in some activities but perhaps also due to physical limits) Anxiety Level: Moderate Danger to Self and Others: No Sleep: Difficulty falling asleep (He indicated that he requires sleep aids to fall asleep.) Appetite: Fair (He indicated that he lost several pounds as his appetite had declined.) Serial Sevens Intact: No (He was however able to spell WORLD backwards.) Support System: Significant Other (His from whom he was has been very supportive and and active in his life now. His daughter likewise is very involved with him.), Child/Children Leisure activities: With Family Problem List - Problem (1) Depressed Qualifiers: Depression Type: dysthymia Qualified Code(s): F34.1 - Dysthymic disorder (2) Secondary dysthymia Code(s): F34.1 - DYSTHYMIC DISORDER (3) Anxiety about health Code(s): F41.8 - OTHER SPECIFIED ANXIETY DISORDERS Assessment/Plan The patient was very cooperative during the clinical evaluation. He was able to comprehend the treatment recommendations made and was receptive to these suggestions. He was given a synopsis of the treatments that include cognitive behavior therapy, psychological pain management, hypnosis, heart rate variability biofeedback with relaxation exercises and mindfulness stress management . These approaches are recommended to reduce reliance on pain medications, improve sleep and elevate mood while reducing anxiety.
[2017-07-25] MEDS ORDERED: PT OWN MED DRAWER 7, Y5N ONE ×2 (11:24→15:20)
[2017-07-25] MEDS: LIDOCAINE 5% TOPICAL PATCH TP SCH (11:27)
[2017-07-25] MEDS: ESCITALOPRAM OXALATE 10 MG TABLET (FP) PO SCH (11:27)
[2017-07-25] MEDS: FAMOTIDINE IV 20 MG/12 ML VIAL IVPUSH SCH ×2 (11:27→21:03)
--- NOTE | 2017-07-25 14:03 | PN ---
Progress Note, Physician Chief Complaint: better mood today still abd pain persistent awaiting dr mcnamara to asses patient - Current Medication List Current Medications: Active Medications Acetaminophen (Tylenol -) 650 mg PO Q6H PRN PRN Reason: FEVER OR PAIN Last Admin: 07/25/17 08:12 Dose: 650 mg Amlodipine Besylate (Norvasc -) 10 mg PO DAILY [facility] Last Admin: 07/25/17 11:21 Dose: Not Given Escitalopram Oxalate (Lexapro -) 10 mg PO DAILY [facility] Last Admin: 07/25/17 11:27 Dose: 10 mg Hydromorphone HCl (Dilaudid Injection -) 1 mg IVPB Q4H PRN PRN Reason: PAIN Last Admin: 07/25/17 05:32 Dose: 1 mg Cefoxitin Sodium 2 gm/ (Dextrose) 100 mls @ 100 mls/hr IVPB Q6H-IV [facility] Last Admin: 07/25/17 08:10 Dose: 100 mls/hr Dextrose/Sodium Chloride (D5-Ns -) 1,000 mls @ 83 mls/hr IV ASDIR [facility] Last Admin: 07/25/17 08:10 Dose: 83 mls/hr Famotidine (Pepcid 20 Mg/12 Ml Push) 20 mg in 12 mls @ 144 mls/hr IVPUSH BID [facility] Last Admin: 07/25/17 11:27 Dose: 144 mls/hr Lidocaine (Lidoderm Patch -) 1 patch TP DAILY [facility] Last Admin: 07/25/17 11:27 Dose: 1 patch Lorazepam (Ativan Injection -) 1 mg IVPUSH DAILY [facility] Losartan Potassium (Cozaar -) 50 mg PO DAILY [facility] Last Admin: 07/25/17 11:21 Dose: Not Given Metoprolol Succinate (Toprol Xl -) 50 mg PO DAILY [facility] Last Admin: 07/25/17 11:21 Dose: Not Given Miscellaneous (Lidoderm Patch Removal) 1 each MC DAILY@2200 [facility] Last Admin: 07/24/17 21:12 Dose: 1 each Oxycodone HCl (Roxicodone -) 15 mg PO Q6H PRN PRN Reason: PAIN SCALE 5 -7 Last Admin: 07/25/17 08:13 Dose: 15 mg Promethazine HCl (Phenergan Injection -) 25 mg IVPB Q6H PRN PRN Reason: NAUSEA Last Admin: 07/24/17 21:53 Dose: 25 mg Simethicone (Mylicon -) 80 mg PO Q4H PRN PRN Reason: GAS Last Admin: 07/25/17 08:20 Dose: 80 mg - Objective Vital Signs: Vital Signs Temperature 97.7 F 07/25/17 08:15 Pulse Rate 102 H 07/25/17 08:15 Respiratory Rate 18 07/25/17 10:54 Blood Pressure 130/84 07/25/17 10:54 O2 Sat by Pulse Oximetry (%) 97 07/23/17 21:00 Constitutional: Yes: Mild Distress Eyes: Yes: WNL HENT: Yes: WNL Neck: Yes: WNL Cardiovascular: Yes: WNL Respiratory: Yes: WNL Gastrointestinal: Yes: Tenderness Musculoskeletal: Yes: WNL Extremities: Yes: WNL Edema: No Peripheral Pulses WNL: Yes Integumentary: Yes: WNL Wound/Incision: Yes: Clean/Dry Neurological: Yes: WNL ...Motor Strength: WNL Psychiatric: Yes: WNL Labs: CBC, BMP 07/25/17 06:40 07/25/17 06:40 INR, PTT INR 1.04 (0.82-1.09) 07/18/17 01:57 Problem List - Problems (1) ZAHRA (acute kidney injury) Code(s): N17.9 - ACUTE KIDNEY FAILURE, UNSPECIFIED (2) Small bowel obstruction Code(s): K56.609 - UNSP INTESTNL OBST, UNSP TO PARTIAL VERSUS COMPLETE OBST (3) Abdominal carcinomatosis Code(s): C76.2 - MALIGNANT NEOPLASM OF ABDOMEN (4) Abnormal abdominal CT scan Code(s): R93.5 - ABN FINDINGS ON DX IMAGING OF ABD REGIONS, INC RETROPERITON (5) Acute abdomen Code(s): R10.0 - ACUTE ABDOMEN (7) Rectal adenocarcinoma Code(s): C20 - MALIGNANT NEOPLASM OF RECTUM Assessment/Plan FEELING BETTER ON LIQUID DIET IV ABX PAIN CONTROL WOULD LIKE TO HAVE DR MCNAMARA BE HIS ONCOLOGIST OOB TO CHAIR SX EVAL APPRECIATED DVT PROPHYLAXIS LEXAPRO DAILY
[2017-07-25] MEDS ORDERED: LORazepam 2 MG/ML SDV VIAL ONE (20:40)
[2017-07-25] MEDS: LORazepam 2 MG/ML SDV VIAL IVPUSH PRN (21:04)
[2017-07-25] MEDS: LIDOCAINE PATCH REMOVAL MC SCH (21:07)
[2017-07-26] MEDS: HYDROmorphone HCL CARPU-JECT 2 MG/1 ML DISP.SYRIN IVPB PRN ×3 (00:17→13:31)
[2017-07-26] MEDS: CEFOXITIN SODIUM 2 GM in DEXTROSE 5%-WATER - 100 ML IVPB SCH ×4 (02:32→20:37)
[2017-07-26] MEDS: PROMETHAZINE HCL 25 MG/1 ML VIAL IVPB PRN ×2 (06:26→13:38)
--- NOTE | 2017-07-26 09:05 | PN ---
Progress Note, Physician Chief Complaint: abdominal pain and vomiting History of Present Illness: 56 yo male PMH HTN, stage 3 rectal cancer, found now to have carcinomatosis. Presented with vomiting imaging consistent with an SBO, He reports having flatus in the interim. NGT decompression appears to be working. Abdominal pain last night obtained an Xray that showed persistant distension. He is tolerating his diet, reported a small amount of emesis after consuming enlive supplement. passing flatus into the appliance. seems in better spirits and slept well last night. - Current Medication List Current Medications: Active Medications Acetaminophen (Tylenol -) 650 mg PO Q6H PRN PRN Reason: FEVER OR PAIN Last Admin: 07/25/17 08:12 Dose: 650 mg Amlodipine Besylate (Norvasc -) 10 mg PO DAILY [facility] Last Admin: 07/25/17 11:21 Dose: Not Given Escitalopram Oxalate (Lexapro -) 10 mg PO DAILY [facility] Last Admin: 07/25/17 11:27 Dose: 10 mg Hydromorphone HCl (Dilaudid Injection -) 1 mg IVPB Q4H PRN PRN Reason: PAIN Last Admin: 07/26/17 05:45 Dose: 1 mg Cefoxitin Sodium 2 gm/ (Dextrose) 100 mls @ 100 mls/hr IVPB Q6H-IV [facility] Last Admin: 07/26/17 02:32 Dose: 100 mls/hr Dextrose/Sodium Chloride (D5-Ns -) 1,000 mls @ 83 mls/hr IV ASDIR [facility] Last Admin: 07/25/17 16:02 Dose: Not Given Famotidine (Pepcid 20 Mg/12 Ml Push) 20 mg in 12 mls @ 144 mls/hr IVPUSH BID [facility] Last Admin: 07/25/17 21:03 Dose: 144 mls/hr Lidocaine (Lidoderm Patch -) 1 patch TP DAILY [facility] Last Admin: 07/25/17 11:27 Dose: 1 patch Lorazepam (Ativan Injection -) 1 mg IVPUSH DAILY [facility] Last Admin: 07/25/17 21:04 Dose: 1 mg Losartan Potassium (Cozaar -) 50 mg PO DAILY [facility] Last Admin: 07/25/17 11:21 Dose: Not Given Metoprolol Succinate (Toprol Xl -) 50 mg PO DAILY [facility] Last Admin: 07/25/17 11:21 Dose: Not Given Miscellaneous (Lidoderm Patch Removal) 1 each MC DAILY@2200 [facility] Last Admin: 07/25/17 21:07 Dose: 1 each Oxycodone HCl (Roxicodone -) 15 mg PO Q6H PRN PRN Reason: PAIN SCALE 5 -7 Last Admin: 07/25/17 08:13 Dose: 15 mg Promethazine HCl (Phenergan Injection -) 25 mg IVPB Q6H PRN PRN Reason: NAUSEA Last Admin: 07/26/17 06:26 Dose: 25 mg Simethicone (Mylicon -) 80 mg PO Q4H PRN PRN Reason: GAS Last Admin: 07/25/17 21:03 Dose: 80 mg - Objective Vital Signs: Vital Signs Temperature 98.7 F 07/26/17 06:41 Pulse Rate 109 H 07/26/17 06:41 Respiratory Rate 20 07/26/17 06:41 Blood Pressure 145/89 07/26/17 06:41 O2 Sat by Pulse Oximetry (%) 97 07/23/17 21:00 Vital Signs Period Temp Pulse Resp BP Sys/Glass Pulse Ox Last 24 Hr 98 F-98.7 F 82-109 16-20 120-162/70-100 Intake & Output 07/25/17 07/26/17 07/26/17 23:59 07:59 15:59 Intake Total 1728 750 Balance 1728 750 Intake: IV 1328 400 D5-Ns - 1,000 ml @ 83 mls 1328 400 /hr IV ASDIR [facility] Rx#: [id number] IVPB 300 300 Oral 100 50 Other: Voiding Method Toilet # Unmeasured Voids Void 2 Bowel Movement Yes Constitutional: Yes: No Distress, Calm, Obese Eyes: Yes: Conjunctiva Clear, EOM Intact HENT: Yes: Atraumatic, Normocephalic Neck: Yes: Supple, Trachea Midline Cardiovascular: Yes: Regular Rate and Rhythm, S1, S2 Respiratory: Yes: Regular, CTA Bilaterally Gastrointestinal: Yes: Normal Bowel Sounds, Soft, Tenderness. No: Tenderness, Epigastrium, Tenderness, Rebound ...Rectal Exam: Yes: Deferred Genitourinary: No: CVA Tenderness - Left, CVA Tenderness - Right Musculoskeletal: No: Muscle Pain, Muscle Weakness Edema: No Peripheral Pulses WNL: Yes Neurological: Yes: Alert, Oriented Psychiatric: Yes: Alert, Oriented Labs: CBC, BMP 07/25/17 06:40 07/25/17 06:40 INR, PTT INR 1.04 (0.82-1.09) 07/18/17 01:57 Problem List - Problems (1) Small bowel obstruction Assessment/Plan: 56 yo male with 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 He has a small bowel obstruction likely due to cancer recurrence. Reporting having passed flatus and BM via ileostomy. Surgery would not benefit this patient at this point. He prefers to continued non- operatively. IVF hydration Mechanically soft diet optimize nutritional status Medical oncology follow up to be decided by patient and PMD will follow peripherally Code(s): K56.609 - UNSP INTESTNL OBST, UNSP TO PARTIAL VERSUS COMPLETE OBST (2) Abdominal carcinomatosis Code(s): C76.2 - MALIGNANT NEOPLASM OF ABDOMEN (3) Intraabdominal fluid collection Code(s): R18.8 - OTHER ASCITES (4) ZAHRA (acute kidney injury) Code(s): N17.9 - ACUTE KIDNEY FAILURE, UNSPECIFIED (5) Hydronephrosis due to obstruction of ureter Code(s): N13.2 - HYDRONEPHROSIS WITH RENAL AND URETERAL CALCULOUS OBSTRUCTION (6) HTN (hypertension) Code(s): I10 - ESSENTIAL (PRIMARY) HYPERTENSION Qualifiers: Hypertension type: essential hypertension Qualified Code(s): I10 - Essential (primary) hypertension
[2017-07-26] MEDS: LOSARTAN POTASSIUM 50 MG TABLET (FP) PO SCH (09:48)
[2017-07-26] MEDS: ESCITALOPRAM OXALATE 10 MG TABLET (FP) PO SCH (09:48)
[2017-07-26] MEDS: METOPROLOL SUCCINATE 50 MG TAB.SR.24H (FP) PO SCH (09:48)
[2017-07-26] MEDS: LIDOCAINE 5% TOPICAL PATCH TP SCH (09:48)
[2017-07-26] MEDS: amLODIPine BESYLATE 10 MG TABLET (FP) PO SCH (09:48)
[2017-07-26] MEDS: SIMETHICONE 80 MG TAB.CHEW (FP) PO PRN (09:51)
[2017-07-26] MEDS: oxyCODONE HCL 5 MG TABLET PO PRN ×2 (09:51→20:53)
--- NOTE | 2017-07-26 10:46 | PN ---
Progress Note, Physician Chief Complaint: AWAEK ALERT UPSET WOULD LIKE ANOTHER ONCOLOGY OPINION - Current Medication List Current Medications: Active Medications Acetaminophen (Tylenol -) 650 mg PO Q6H PRN PRN Reason: FEVER OR PAIN Last Admin: 07/25/17 08:12 Dose: 650 mg Amlodipine Besylate (Norvasc -) 10 mg PO DAILY [facility] Last Admin: 07/26/17 09:48 Dose: 10 mg Escitalopram Oxalate (Lexapro -) 10 mg PO DAILY [facility] Last Admin: 07/26/17 09:48 Dose: 10 mg Hydromorphone HCl (Dilaudid Injection -) 1 mg IVPB Q4H PRN PRN Reason: PAIN Last Admin: 07/26/17 05:45 Dose: 1 mg Cefoxitin Sodium 2 gm/ (Dextrose) 100 mls @ 100 mls/hr IVPB Q6H-IV [facility] Last Admin: 07/26/17 09:48 Dose: 100 mls/hr Dextrose/Sodium Chloride (D5-Ns -) 1,000 mls @ 83 mls/hr IV ASDIR [facility] Last Admin: 07/25/17 16:02 Dose: Not Given Famotidine (Pepcid 20 Mg/12 Ml Push) 20 mg in 12 mls @ 144 mls/hr IVPUSH BID [facility] Last Admin: 07/25/17 21:03 Dose: 144 mls/hr Lidocaine (Lidoderm Patch -) 1 patch TP DAILY [facility] Last Admin: 07/26/17 09:48 Dose: 1 patch Lorazepam (Ativan Injection -) 1 mg IVPUSH DAILY [facility] Last Admin: 07/25/17 21:04 Dose: 1 mg Losartan Potassium (Cozaar -) 50 mg PO DAILY [facility] Last Admin: 07/26/17 09:48 Dose: 50 mg Metoprolol Succinate (Toprol Xl -) 50 mg PO DAILY [facility] Last Admin: 07/26/17 09:48 Dose: 50 mg Miscellaneous (Lidoderm Patch Removal) 1 each MC DAILY@2200 [facility] Last Admin: 07/25/17 21:07 Dose: 1 each Oxycodone HCl (Roxicodone -) 15 mg PO Q6H PRN PRN Reason: PAIN SCALE 5 -7 Last Admin: 07/26/17 09:51 Dose: 15 mg Promethazine HCl (Phenergan Injection -) 25 mg IVPB Q6H PRN PRN Reason: NAUSEA Last Admin: 07/26/17 06:26 Dose: 25 mg Simethicone (Mylicon -) 80 mg PO Q4H PRN PRN Reason: GAS Last Admin: 07/26/17 09:51 Dose: 80 mg - Objective Vital Signs: Vital Signs Temperature 98.7 F 07/26/17 06:41 Pulse Rate 109 H 07/26/17 06:41 Respiratory Rate 20 07/26/17 06:41 Blood Pressure 145/89 07/26/17 06:41 O2 Sat by Pulse Oximetry (%) 97 07/23/17 21:00 Constitutional: Yes: Mild Distress Eyes: Yes: WNL HENT: Yes: WNL Neck: Yes: WNL Cardiovascular: Yes: WNL Respiratory: Yes: WNL Gastrointestinal: Yes: Other (COLOSTOMY) Genitourinary: Yes: WNL Extremities: Yes: WNL Edema: No Peripheral Pulses WNL: Yes Integumentary: Yes: WNL Wound/Incision: Yes: Clean/Dry Neurological: Yes: WNL ...Motor Strength: LLE, RLE Psychiatric: Yes: Other Labs: CBC, BMP 07/25/17 06:40 07/25/17 06:40 INR, PTT INR 1.04 (0.82-1.09) 07/18/17 01:57 Problem List - Problems (1) ZAHRA (acute kidney injury) Code(s): N17.9 - ACUTE KIDNEY FAILURE, UNSPECIFIED (2) Small bowel obstruction Code(s): K56.609 - UNSP INTESTNL OBST, UNSP TO PARTIAL VERSUS COMPLETE OBST (3) Abdominal carcinomatosis Code(s): C76.2 - MALIGNANT NEOPLASM OF ABDOMEN (4) Abnormal abdominal CT scan Code(s): R93.5 - ABN FINDINGS ON DX IMAGING OF ABD REGIONS, INC RETROPERITON (5) Acute abdomen Code(s): R10.0 - ACUTE ABDOMEN (7) Rectal adenocarcinoma Code(s): C20 - MALIGNANT NEOPLASM OF RECTUM Assessment/Plan MECHANICAL SOFT DIET TOLERATED AND ADVANCE ONCOLOGY 2ND OPINION DR FUNK CALLED OOB TO CHAIR DVT PROPHYLAXIS PAIN CONTROL IV ABX
[2017-07-26] MEDS ORDERED: PT OWN MED DRAWER 7, Y5N ONE ×3 (11:08→20:30)
[2017-07-26] MEDS: FAMOTIDINE IV 20 MG/12 ML VIAL IVPUSH SCH ×3 (11:14→21:39)
[2017-07-26 11:28] LABS: MCH 27.3 pg (25.7-33.7); MEAN CELL VOLUME 82.8 fl (80-96); PLATELET COUNT 311 K/MM3 (134-434); WHITE BLOOD COUNT 6.3 K/mm3 (4.0-10.0)
[2017-07-26 11:53] LABS: ANION GAP 10 (8-16); BILIRUBIN,TOTAL 0.6 mg/dL (0.2-1.0); CO2 26 mmol/L (21-32); CREATININE 1.5 mg/dL (0.7-1.3); GLUCOSE,RANDOM 159 mg/dL (74-106); MAGNESIUM 1.7 mg/dL (1.8-2.4); SGOT/AST 10 U/L (15-37); SGPT/ALT 21 U/L (12-78); TOT PROT 6.9 g/dl (6.4-8.2)
[2017-07-26 11:54] LABS: ALK PHOS 65 U/L (45-117)
[2017-07-26] MEDS: DEXTROSE 5%-NORMAL SALINE 1,000 ML IV SCH ×2 (13:34→15:13)
[2017-07-26] MEDS: LIDOCAINE PATCH REMOVAL MC SCH (21:39)
[2017-07-27] MEDS ORDERED: PT OWN MED DRAWER 7, Y5N ONE ×3 (02:55→18:22)
[2017-07-27] MEDS: CEFOXITIN SODIUM 2 GM in DEXTROSE 5%-WATER - 100 ML IVPB SCH ×4 (03:01→21:48)
[2017-07-27] MEDS: oxyCODONE HCL 5 MG TABLET PO PRN (05:37)
[2017-07-27] MEDS: SIMETHICONE 80 MG TAB.CHEW (FP) PO PRN ×2 (07:06→11:18)
--- NOTE | 2017-07-27 07:36 | PN ---
Progress Note, Physician Chief Complaint: abdominal pain and vomiting History of Present Illness: 56 yo male PMH HTN, stage 3 rectal cancer, found now to have carcinomatosis. Presented with vomiting imaging consistent with an SBO, He reports having flatus in the interim. NGT decompression appears to be working. Abdominal pain last night obtained an Xray that showed persistant distension. He is tolerating his diet, reported a small amount of emesis after consuming enlive supplement. passing flatus into the appliance. seems in better spirits and slept well last night. - Current Medication List Current Medications: Active Medications Acetaminophen (Tylenol -) 650 mg PO Q6H PRN PRN Reason: FEVER OR PAIN Last Admin: 07/25/17 08:12 Dose: 650 mg Amlodipine Besylate (Norvasc -) 10 mg PO DAILY [facility] Last Admin: 07/26/17 09:48 Dose: 10 mg Escitalopram Oxalate (Lexapro -) 10 mg PO DAILY [facility] Last Admin: 07/26/17 09:48 Dose: 10 mg Hydromorphone HCl (Dilaudid Injection -) 1 mg IVPB Q4H PRN PRN Reason: PAIN Last Admin: 07/26/17 13:31 Dose: 1 mg Cefoxitin Sodium 2 gm/ (Dextrose) 100 mls @ 100 mls/hr IVPB Q6H-IV [facility] Last Admin: 07/27/17 03:01 Dose: 100 mls/hr Dextrose/Sodium Chloride (D5-Ns -) 1,000 mls @ 83 mls/hr IV ASDIR [facility] Last Admin: 07/26/17 13:34 Dose: 83 mls/hr Famotidine (Pepcid 20 Mg/12 Ml Push) 20 mg in 12 mls @ 144 mls/hr IVPUSH BID [facility] Last Admin: 07/26/17 21:39 Dose: 144 mls/hr Lidocaine (Lidoderm Patch -) 1 patch TP DAILY [facility] Last Admin: 07/26/17 09:48 Dose: 1 patch Lorazepam (Ativan Injection -) 1 mg IVPUSH DAILY [facility] Last Admin: 07/25/17 21:04 Dose: 1 mg Losartan Potassium (Cozaar -) 50 mg PO DAILY [facility] Last Admin: 07/26/17 09:48 Dose: 50 mg Metoprolol Succinate (Toprol Xl -) 50 mg PO DAILY [facility] Last Admin: 07/26/17 09:48 Dose: 50 mg Miscellaneous (Lidoderm Patch Removal) 1 each MC DAILY@2200 [facility] Last Admin: 07/26/17 21:39 Dose: 1 each Oxycodone HCl (Roxicodone -) 15 mg PO Q6H PRN PRN Reason: PAIN SCALE 5 -7 Last Admin: 07/27/17 05:37 Dose: 15 mg Promethazine HCl (Phenergan Injection -) 25 mg IVPB Q6H PRN PRN Reason: NAUSEA Last Admin: 07/26/17 13:38 Dose: 25 mg Simethicone (Mylicon -) 80 mg PO Q4H PRN PRN Reason: GAS Last Admin: 07/27/17 07:06 Dose: 80 mg - Objective Vital Signs: Vital Signs Temperature 98.3 F 07/27/17 06:35 Pulse Rate 97 H 07/27/17 06:35 Respiratory Rate 20 07/27/17 06:35 Blood Pressure 156/95 07/27/17 06:35 O2 Sat by Pulse Oximetry (%) 97 07/26/17 21:00 Vital Signs Period Temp Pulse Resp BP Sys/Glass Pulse Ox Last 24 Hr 98 F-98.5 F 97-126 18-20 133-156/81-102 97 Constitutional: Yes: No Distress, Calm, Obese Eyes: Yes: Conjunctiva Clear, EOM Intact HENT: Yes: Atraumatic, Normocephalic Neck: Yes: Supple, Trachea Midline Cardiovascular: Yes: Regular Rate and Rhythm, S1, S2 Respiratory: Yes: Regular, CTA Bilaterally Gastrointestinal: Yes: Normal Bowel Sounds, Soft, Distention, Other (gas and liquid stool in the bag RLQ) ...Rectal Exam: Yes: Deferred Edema: No Peripheral Pulses WNL: Yes Peripheral Pulses: Left Doralis Pedis: 2+, Right Dorsalis Pedis: 2+ Neurological: Yes: Alert, Oriented Psychiatric: Yes: Alert, Oriented Labs: CBC, BMP 07/26/17 11:05 07/26/17 11:05 INR, PTT INR 1.04 (0.82-1.09) 07/18/17 01:57 Problem List - Problems (1) Small bowel obstruction Assessment/Plan: 56 yo male with 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 He has a small bowel obstruction likely due to cancer recurrence. Reporting having passed flatus and BM via ileostomy. Surgery would not benefit this patient at this point. He prefers to continued non- operatively. Having some intermittent emesis and abdominal distension IVF hydration will obtain abdominal xray optimize nutritional status Medical oncology follow up to be decided by patient and PMD will follow peripherally Code(s): K56.609 - UNSP INTESTNL OBST, UNSP TO PARTIAL VERSUS COMPLETE OBST (2) Abdominal carcinomatosis Code(s): C76.2 - MALIGNANT NEOPLASM OF ABDOMEN (3) Intraabdominal fluid collection Code(s): R18.8 - OTHER ASCITES (4) ZAHRA (acute kidney injury) Code(s): N17.9 - ACUTE KIDNEY FAILURE, UNSPECIFIED (5) Hydronephrosis due to obstruction of ureter Code(s): N13.2 - HYDRONEPHROSIS WITH RENAL AND URETERAL CALCULOUS OBSTRUCTION (6) HTN (hypertension) Code(s): I10 - ESSENTIAL (PRIMARY) HYPERTENSION Qualifiers: Hypertension type: essential hypertension Qualified Code(s): I10 - Essential (primary) hypertension
[2017-07-27] MEDS: DEXTROSE 5%-NORMAL SALINE 1,000 ML IV SCH ×2 (08:31→21:48)
--- NOTE | 2017-07-27 10:56 | CONSULT ---
Consult Consult Specialty:: medical oncology - History of Present Illness Chief Complaint: nausea/vomiting History of Present Illness: 56 y/o male w hx rectal ca reportedly stage III s/p neoadjuvant chemoRx/RT , then resection rectal cancer , had 1 more cycle chemo? FOLFOX ; pt then had aaborted attempt at reversal colostomy , recurred w peritoneal disease s/p another laparotomy for obstruction , did not get any further chemoRx for several months . Now pt admitted w symptoms of partial small bowel obstruction , w N&V/abdominal bloating , now somewhat improved w conservative management.He is taking in full liquids . Pt now considering options .He still has occ nausea ,bloating, occ twinges of vague diffuse abdo. pain on narcotic analgesics ; previous CTa/p showed partial small bowel obstruction , evidence of peritoneal implants. Reportedly pt had bx of one of these at [facility] and c/w mets , and he was scheduled to start chemoRx there . - History Source History Provided By: Patient Limitations to Obtaining History: No Limitations - Past Medical History [employer]: No: Alzheimer's, CVA, Dementia, Migraine, Multiple Sclerosis, Peripheral Neuropathy, Parkinson's, Seizure, Syncope, TIA, Vertigo, Other Cardio/Vascular: Yes: HTN Pulmonary: No: Asthma, Bronchitis, Cancer, COPD, O2 Dependent, Pneumonia, Previously Intubated, Pulmonary Embolus, Pulmonary Fibrosis, Sleep Apnea, Other Gastrointestinal: Yes: Cancer (rectal cancer stage 4, s/p subtotal colectomy, carcinomatosis ) Hepatobiliary: No: Cirrhosis, Cholelithiasis, Cholecystitis, Choledocholithiasis , Hepatitis A, Hepatitis B, Hepatitis C, Other Renal/: No: Renal Failure, Renal Inusuff, BPH, Cancer, Hematuria, Hemodialysis , Neurogenic Bladder, Renal Calculi, UTI, Other Heme/Onc: Yes: Cancer Infectious Disease: Yes: Other (intra-abdominal abscess) Musculoskeletal: Yes: Other (occ back pain ,mild) ENT: Yes: Other (s/p swelling uvula) Dermatology: No: Basal Cell, Cellulitis, Eczema, Melanoma, Psoriasis, Squamous Cell, Other - Past Surgical History Past Surgical History: Yes: Colectomy (subtotal colectomy ), Colostomy - Alcohol/Substance Use Hx Alcohol Use: No (Past Hx of Alcohol use limited to 1.5 glasses of wine. Denies hard liquor.) - Smoking History Smoking history: Unknown if ever smoked Have you smoked in the past 12 months: No - Social History Usual Living Arrangement: Alone History of Recent Travel: No Home Medications - Allergies Allergies/Adverse Reactions: Allergies Allergy/AdvReac Type Severity Reaction Status Date / Time phenol [From Chloraseptic] Allergy Severe Difficulty Verified 07/19/17 17:00 Breathing sodium phenolate Allergy Severe Difficulty Verified 07/19/17 17:00 [From Chloraseptic] Breathing - Home Medications Home Medications: Ambulatory Orders Amlodipine Besylate [Norvasc -] 10 mg PO DAILY #30 tablet 07/13/17 Losartan Potassium 50 mg PO DAILY #30 tablet 07/13/17 Metoprolol Succinate [Toprol XL -] 50 mg PO DAILY #30 tab.sr.24h 07/13/17 Pantoprazole Sodium [Protonix] 40 mg PO DAILY #30 tablet. 07/13/17 Family Disease History - Family Disease History Family History: Denies Other Family History: no cancer Review of Systems - Review of Systems Constitutional: reports: Loss of Appetite, Weakness Eyes: denies: No Symptoms, Blind Spots, Blurred Vision, Double Vision, Eye Pain , Floaters, Photophobia, Recent Change in Vision, Other HENT: denies: No Symptoms, Difficult Swallowing, Ear Discharge, Ear Pain, Epistaxis, Gingival Bleeding, Hearing Loss, Mouth Swelling, Nasal Congestion, Ocular Prosthesis, Throat Pain, Toothache, Ringing in Ears, Other Neck: denies: No Symptoms, Decreased ROM, Lumps, Pain on Movement, Stiffness, Swollen Glands, Tenderness, Other Cardiovascular: denies: No Symptoms, Chest Pain, Edema, Palpitations, Shortness of Breath, Other Respiratory: denies: No Symptoms, Cough, Exercise Intolerance, Hemoptysis, Orthopnea, PND, Snoring, SOB, SOB on Exertion, Wheezing, Other Gastrointestinal: reports: Abdominal Pain, Bloating, Diarrhea, Nausea Genitourinary: denies: No Symptoms, Burning, Discharge, Dysuria, Flank Pain, Frequency, Hematuria, Incontinence, Lesions, Menses, Pain, Testicular Mass, Testicular Pain, Testicular Swelling, Urgency, Vaginal Bleeding, Other Musculoskeletal: reports: Back Pain (occ) Integumentary: denies: No Symptoms, Blister, Bruising, Change in Color, Eczema, Erythema, Incision, Lesions, Lump, Pallor, Pruritis, Rash, Wound, Other Neurological: denies: No Symptoms, Change in LOC, Change in Speech, Confusion, Dizziness, Headache, Incoordination, Numbness, Parasthesia, Pre-Existing Deficit , Seizure, Syncope, Tremors, Unsteady Gait, Weakness, Other Endocrine: denies: No Symptoms, Excessive Sweating, Flushing, Increased Hunger, Increased Thirst, Intolerance to Cold, Intolerance to Heat, Unexplained Weight Gain, Unexplained Weight Loss, Other Hematology/Lymphatic: reports: No Symptoms Physical Exam Vital Signs: Vital Signs Temperature 98.3 F 07/27/17 06:35 Pulse Rate 97 H 07/27/17 06:35 Respiratory Rate 20 07/27/17 06:35 Blood Pressure 156/95 07/27/17 06:35 O2 Sat by Pulse Oximetry (%) 97 07/26/17 21:00 Constitutional: Yes: Well Nourished, No Distress, Calm Eyes: Yes: WNL, Conjunctiva Clear, EOM Intact HENT: Yes: WNL, Atraumatic, Normocephalic Neck: Yes: WNL, Supple, Trachea Midline Cardiovascular: Yes: WNL, Regular Rate and Rhythm Respiratory: Yes: WNL, Regular, CTA Bilaterally Gastrointestinal: Yes: WNL, Normal Bowel Sounds, Soft, Other (colostomy w liquid stool) Breast(s): Yes: WNL Musculoskeletal: Yes: WNL Extremities: Yes: WNL Edema: No Integumentary: Yes: WNL Neurological: Yes: WNL, Alert, Oriented Labs: CBC, BMP 07/26/17 11:05 07/26/17 11:05 Problem List - Problems (1) Small bowel obstruction Code(s): K56.609 - UNSP INTESTNL OBST, UNSP TO PARTIAL VERSUS COMPLETE OBST (2) Abdominal carcinomatosis Code(s): C76.2 - MALIGNANT NEOPLASM OF ABDOMEN (3) Rectal adenocarcinoma Code(s): C20 - MALIGNANT NEOPLASM OF RECTUM Assessment/Plan Pt requires to start systemic treatment as soon as possible to prevent further bowel obstruction /dysmotility ; I do not have his path reports to know KRAS status , but options include FOLFOX or FOLFIRI or FOLFOXIRI with or without Avastin (or EGFR drug instead if KRAS not mutated ) .He has not been extensively pretreated so he has reasonable chance of response..Pt may return to [facility] since it has already been reportedly set up. Pt seems to understand severity of his condition.Can try dose of Relistor today due to his narcotic use. Although nutrition not optimal can try to subsist w liquids for now till he starts chemoRx. If he wishes to discuss the matter with me further he can call my office .[phone]
--- NOTE | 2017-07-27 11:09 | PN ---
Progress Note, Physician Chief Complaint: AWAKE ALERT THIS AM C/O ABD PAIN - Current Medication List Current Medications: Active Medications Acetaminophen (Tylenol -) 650 mg PO Q6H PRN PRN Reason: FEVER OR PAIN Last Admin: 07/25/17 08:12 Dose: 650 mg Amlodipine Besylate (Norvasc -) 10 mg PO DAILY [facility] Last Admin: 07/26/17 09:48 Dose: 10 mg Escitalopram Oxalate (Lexapro -) 10 mg PO DAILY [facility] Last Admin: 07/26/17 09:48 Dose: 10 mg Hydromorphone HCl (Dilaudid Injection -) 1 mg IVPB Q4H PRN PRN Reason: PAIN Last Admin: 07/26/17 13:31 Dose: 1 mg Cefoxitin Sodium 2 gm/ (Dextrose) 100 mls @ 100 mls/hr IVPB Q6H-IV [facility] Last Admin: 07/27/17 03:01 Dose: 100 mls/hr Dextrose/Sodium Chloride (D5-Ns -) 1,000 mls @ 83 mls/hr IV ASDIR [facility] Last Admin: 07/26/17 13:34 Dose: 83 mls/hr Famotidine (Pepcid 20 Mg/12 Ml Push) 20 mg in 12 mls @ 144 mls/hr IVPUSH BID [facility] Last Admin: 07/26/17 21:39 Dose: 144 mls/hr Lidocaine (Lidoderm Patch -) 1 patch TP DAILY [facility] Last Admin: 07/26/17 09:48 Dose: 1 patch Lorazepam (Ativan Injection -) 1 mg IVPUSH DAILY [facility] Last Admin: 07/25/17 21:04 Dose: 1 mg Losartan Potassium (Cozaar -) 50 mg PO DAILY [facility] Last Admin: 07/26/17 09:48 Dose: 50 mg Magnesium Oxide (Mag-Ox -) 400 mg PO BID [facility] Methylnaltrexone [place] (Relistor -) 12 mg SQ DAILY [facility] Metoprolol Succinate (Toprol Xl -) 50 mg PO DAILY [facility] Last Admin: 07/26/17 09:48 Dose: 50 mg Miscellaneous (Lidoderm Patch Removal) 1 each MC DAILY@2200 [facility] Last Admin: 07/26/17 21:39 Dose: 1 each Oxycodone HCl (Roxicodone -) 15 mg PO Q6H PRN PRN Reason: PAIN SCALE 5 -7 Last Admin: 07/27/17 05:37 Dose: 15 mg Oxycodone HCl (Oxycontin -) 20 mg PO BID [facility] Promethazine HCl (Phenergan Injection -) 25 mg IVPB Q6H PRN PRN Reason: NAUSEA Last Admin: 07/26/17 13:38 Dose: 25 mg Simethicone (Mylicon -) 80 mg PO Q4H PRN PRN Reason: GAS Last Admin: 07/27/17 07:06 Dose: 80 mg - Objective Vital Signs: Vital Signs Temperature 98.3 F 07/27/17 06:35 Pulse Rate 97 H 07/27/17 06:35 Respiratory Rate 20 07/27/17 06:35 Blood Pressure 156/95 07/27/17 06:35 O2 Sat by Pulse Oximetry (%) 97 07/26/17 21:00 Constitutional: Yes: Mild Distress Eyes: Yes: WNL HENT: Yes: WNL Neck: Yes: WNL Cardiovascular: Yes: WNL Respiratory: Yes: WNL Gastrointestinal: Yes: Other (COLOSTOMY) Genitourinary: Yes: WNL Musculoskeletal: Yes: WNL Extremities: Yes: WNL Edema: No Peripheral Pulses WNL: Yes Integumentary: Yes: WNL Wound/Incision: Yes: Dressing Dry and Intact Neurological: Yes: WNL ...Motor Strength: WNL Psychiatric: Yes: WNL Labs: CBC, BMP 07/26/17 11:05 07/26/17 11:05 INR, PTT INR 1.04 (0.82-1.09) 07/18/17 01:57 Problem List - Problems (1) ZAHRA (acute kidney injury) Code(s): N17.9 - ACUTE KIDNEY FAILURE, UNSPECIFIED (2) Small bowel obstruction Code(s): K56.609 - UNSP INTESTNL OBST, UNSP TO PARTIAL VERSUS COMPLETE OBST (3) Abdominal carcinomatosis Code(s): C76.2 - MALIGNANT NEOPLASM OF ABDOMEN (4) Abnormal abdominal CT scan Code(s): R93.5 - ABN FINDINGS ON DX IMAGING OF ABD REGIONS, INC RETROPERITON (5) Acute abdomen Code(s): R10.0 - ACUTE ABDOMEN (7) Rectal adenocarcinoma Code(s): C20 - MALIGNANT NEOPLASM OF RECTUM Assessment/Plan RELISTOR STARTED FOR OPIOD BOWEL ONCOLOGY F/U DR FUNK PATIENT TO RETURN OUTPATIENT DR LIAO PAIN CONTROL SURGERY EVAL
[2017-07-27] MEDS: POTASSIUM CHLORIDE TABS 20 MEQ TABLET.ER (FP) PO ONE ×2 (11:12)
[2017-07-27] MEDS: METOPROLOL SUCCINATE 50 MG TAB.SR.24H (FP) PO SCH (11:12)
[2017-07-27] MEDS: LOSARTAN POTASSIUM 50 MG TABLET (FP) PO SCH (11:13)
[2017-07-27] MEDS: MAGNESIUM OXIDE 400 MG TABLET (FP) PO SCH ×2 (11:13→21:50)
[2017-07-27] MEDS: ESCITALOPRAM OXALATE 10 MG TABLET (FP) PO SCH (11:13)
[2017-07-27] MEDS: amLODIPine BESYLATE 10 MG TABLET (FP) PO SCH (11:13)
[2017-07-27] MEDS: FAMOTIDINE IV 20 MG/12 ML VIAL IVPUSH SCH ×2 (11:18→21:50)
[2017-07-27] MEDS: LIDOCAINE 5% TOPICAL PATCH TP SCH (11:25)
[2017-07-27] MEDS: Methylnaltrexone Bromide 12 MG/0.6 ML KIT SQ SCH (12:32)
[2017-07-27] MEDS: oxyCODONE HCL 20 MG SUSTAINED ACTING TABLET PO SCH ×3 (12:32→21:49)
[2017-07-27] MEDS: PROMETHAZINE HCL 25 MG/1 ML VIAL IVPB PRN (13:07)
[2017-07-27] MEDS: LIDOCAINE PATCH REMOVAL MC SCH (21:48)
--- NOTE | 2017-07-27 23:27 | HOSP ---
Subjective - Review of Symptoms Events since last encounter: called by nurse on floor pt needs NGT placement. Had NGT in earlier. Unclear why it was removed. Nurse spoke to surgery who request NGT but is unable to come in to do it; thus hospitalist team called for placement. Subjective: Pt reports abdominal discomfort, sensation of fullness, nausea. Physical Examination Vital Signs: Vital Signs Temperature 98.1 F 07/27/17 17:50 Pulse Rate 107 H 07/27/17 17:50 Respiratory Rate 20 07/27/17 17:50 Blood Pressure 137/91 07/27/17 17:50 O2 Sat by Pulse Oximetry (%) 97 07/27/17 09:00 Labs: CBC, BMP 07/26/17 11:05 07/26/17 11:05 Hospitalist Encounter Assessment: Abd distention, likely SBO, ? partial - Pt prepped and positioned. NGT inserted right nare, taped at 55cm, bilious/ greenish fluid obtained. Pt vomited immediately after NGT placement, but ceased when suction started. - CXR for placement. Addendum CXR done and reviewed, due to technique unable to visualize distal tip of NGT but appears to extend into RUQ. Gastric secretions obtained and borborygmi auscultated on insufflation, loudest over stomach. pt reports feeling much better after suctioning - cont NGT to ILWS
[2017-07-28] MEDS: DEXTROSE 5%-NORMAL SALINE 1,000 ML IV SCH ×3 (02:38→21:35)
[2017-07-28] MEDS: CEFOXITIN SODIUM 2 GM in DEXTROSE 5%-WATER - 100 ML IVPB SCH ×4 (02:38→21:27)
[2017-07-28] MEDS: LORazepam 2 MG/ML SDV VIAL IVPUSH PRN (02:38)
[2017-07-28 08:53] LABS: MCH 27.8 pg (25.7-33.7); MCHC 33.5 g/dl (32.0-35.9); MEAN CELL VOLUME 83.2 fl (80-96); MEAN PLT VOLUME 8.4 fl (7.5-11.1); PLATELET COUNT 290 K/MM3 (134-434); RDW 16.3 % (11.9-15.9); WHITE BLOOD COUNT 6.6 K/mm3 (4.0-10.0)
--- NOTE | 2017-07-28 09:25 | PN ---
Progress Note, Physician Chief Complaint: awake c/o pain nausea and vomiting - Current Medication List Current Medications: Active Medications Acetaminophen (Tylenol -) 650 mg PO Q6H PRN PRN Reason: FEVER OR PAIN Last Admin: 07/25/17 08:12 Dose: 650 mg Amlodipine Besylate (Norvasc -) 10 mg PO DAILY [facility] Last Admin: 07/27/17 11:13 Dose: 10 mg Escitalopram Oxalate (Lexapro -) 10 mg PO DAILY [facility] Last Admin: 07/27/17 11:13 Dose: 10 mg Cefoxitin Sodium 2 gm/ (Dextrose) 100 mls @ 100 mls/hr IVPB Q6H-IV [facility] Last Admin: 07/28/17 02:38 Dose: 100 mls/hr Dextrose/Sodium Chloride (D5-Ns -) 1,000 mls @ 83 mls/hr IV ASDIR [facility] Last Admin: 07/28/17 02:38 Dose: 83 mls/hr Famotidine (Pepcid 20 Mg/12 Ml Push) 20 mg in 12 mls @ 144 mls/hr IVPUSH BID [facility] Last Admin: 07/27/17 21:50 Dose: Not Given Lidocaine (Lidoderm Patch -) 1 patch TP DAILY [facility] Last Admin: 07/27/17 11:25 Dose: 1 patch Lorazepam (Ativan Injection -) 1 mg IVPUSH DAILY PRN Last Admin: 07/28/17 02:38 Dose: 1 mg Losartan Potassium (Cozaar -) 50 mg PO DAILY [facility] Last Admin: 07/27/17 11:13 Dose: 50 mg Magnesium Oxide (Mag-Ox -) 400 mg PO BID [facility] Last Admin: 07/27/17 21:50 Dose: 400 mg Methylnaltrexone [place] (Relistor -) 12 mg SQ DAILY [facility] Last Admin: 07/27/17 12:32 Dose: Not Given Metoprolol Succinate (Toprol Xl -) 50 mg PO DAILY [facility] Last Admin: 07/27/17 11:12 Dose: 50 mg Miscellaneous (Lidoderm Patch Removal) 1 each MC DAILY@2200 [facility] Last Admin: 07/27/17 21:48 Dose: 1 each Oxycodone HCl (Roxicodone -) 15 mg PO Q6H PRN PRN Reason: PAIN SCALE 5 -7 Last Admin: 07/27/17 05:37 Dose: 15 mg Oxycodone HCl (Oxycontin -) 20 mg PO BID [facility] Last Admin: 07/27/17 21:49 Dose: 20 mg Promethazine HCl (Phenergan Injection -) 25 mg IVPB Q6H PRN PRN Reason: NAUSEA Last Admin: 07/27/17 13:07 Dose: 25 mg Simethicone (Mylicon -) 80 mg PO Q4H PRN PRN Reason: GAS Last Admin: 07/27/17 11:18 Dose: 80 mg - Objective Vital Signs: Vital Signs Temperature 98.2 F 07/28/17 06:00 Pulse Rate 100 H 07/28/17 06:00 Respiratory Rate 20 07/28/17 06:00 Blood Pressure 153/91 07/28/17 06:00 O2 Sat by Pulse Oximetry (%) 95 07/27/17 23:55 Constitutional: Yes: Mild Distress Eyes: Yes: WNL HENT: Yes: WNL Neck: Yes: WNL Cardiovascular: Yes: WNL Respiratory: Yes: WNL Gastrointestinal: Yes: Tenderness Genitourinary: Yes: WNL Musculoskeletal: Yes: WNL Extremities: Yes: WNL Edema: No Peripheral Pulses WNL: Yes Integumentary: Yes: WNL Wound/Incision: Yes: Clean/Dry Neurological: Yes: WNL ...Motor Strength: WNL Psychiatric: Yes: WNL Labs: CBC, BMP 07/28/17 08:00 INR, PTT INR 1.04 (0.82-1.09) 07/18/17 01:57 Problem List - Problems (1) ZAHRA (acute kidney injury) Code(s): N17.9 - ACUTE KIDNEY FAILURE, UNSPECIFIED (2) Small bowel obstruction Code(s): K56.609 - UNSP INTESTNL OBST, UNSP TO PARTIAL VERSUS COMPLETE OBST (3) Abdominal carcinomatosis Code(s): C76.2 - MALIGNANT NEOPLASM OF ABDOMEN (4) Abnormal abdominal CT scan Code(s): R93.5 - ABN FINDINGS ON DX IMAGING OF ABD REGIONS, INC RETROPERITON (5) Acute abdomen Code(s): R10.0 - ACUTE ABDOMEN (7) Rectal adenocarcinoma Code(s): C20 - MALIGNANT NEOPLASM OF RECTUM Assessment/Plan NGT TO SUCTION READJUSTED BY SURGERY IV ABX PAIN CONTROL NPO
[2017-07-28 09:34] LABS: ANION GAP 9 (8-16); CALCIUM 8.4 mg/dL (8.5-10.1); CO2 26 mmol/L (21-32); CREATININE 0.9 mg/dL (0.7-1.3); GLUCOSE,RANDOM 117 mg/dL (74-106)
[2017-07-28] MEDS ORDERED: PT OWN MED DRAWER 7, Y5N ONE ×2 (10:01→16:59)
[2017-07-28] MEDS: LOSARTAN POTASSIUM 50 MG TABLET (FP) PO SCH (10:13)
[2017-07-28] MEDS: MAGNESIUM OXIDE 400 MG TABLET (FP) PO SCH ×2 (10:13→21:26)
[2017-07-28] MEDS: METOPROLOL SUCCINATE 50 MG TAB.SR.24H (FP) PO SCH (10:13)
[2017-07-28] MEDS: ESCITALOPRAM OXALATE 10 MG TABLET (FP) PO SCH (10:13)
[2017-07-28] MEDS: LIDOCAINE 5% TOPICAL PATCH TP SCH (10:13)
[2017-07-28] MEDS: SIMETHICONE 80 MG TAB.CHEW (FP) PO PRN (10:13)
[2017-07-28] MEDS: amLODIPine BESYLATE 10 MG TABLET (FP) PO SCH (10:13)
[2017-07-28] MEDS: oxyCODONE HCL 20 MG SUSTAINED ACTING TABLET PO SCH ×2 (10:14→21:27)
[2017-07-28] MEDS: FAMOTIDINE IV 20 MG/12 ML VIAL IVPUSH SCH ×2 (10:19→21:28)
--- NOTE | 2017-07-28 10:21 | PN ---
Progress Note, Physician Chief Complaint: abdominal pain and vomiting History of Present Illness: 56 yo male PMH HTN, stage 3 rectal cancer, found now to have carcinomatosis. Presented with vomiting imaging consistent with an SBO, He reports having flatus in the interim. NGT decompression appears to be working. Abdominal pain last night obtained an Xray that showed persistent distension. He reported more emesis yesterday, abdominal xray showed SBO. Offered NGT which he eventually had it placed by the hospitalist after agreeing late last night. - Current Medication List Current Medications: Active Medications Acetaminophen (Tylenol -) 650 mg PO Q6H PRN PRN Reason: FEVER OR PAIN Last Admin: 07/25/17 08:12 Dose: 650 mg Amlodipine Besylate (Norvasc -) 10 mg PO DAILY [facility] Last Admin: 07/27/17 11:13 Dose: 10 mg Escitalopram Oxalate (Lexapro -) 10 mg PO DAILY [facility] Last Admin: 07/27/17 11:13 Dose: 10 mg Cefoxitin Sodium 2 gm/ (Dextrose) 100 mls @ 100 mls/hr IVPB Q6H-IV [facility] Last Admin: 07/28/17 02:38 Dose: 100 mls/hr Dextrose/Sodium Chloride (D5-Ns -) 1,000 mls @ 83 mls/hr IV ASDIR [facility] Last Admin: 07/28/17 02:38 Dose: 83 mls/hr Famotidine (Pepcid 20 Mg/12 Ml Push) 20 mg in 12 mls @ 144 mls/hr IVPUSH BID [facility] Last Admin: 07/27/17 21:50 Dose: Not Given Lidocaine (Lidoderm Patch -) 1 patch TP DAILY [facility] Last Admin: 07/27/17 11:25 Dose: 1 patch Lorazepam (Ativan Injection -) 1 mg IVPUSH DAILY PRN Last Admin: 07/28/17 02:38 Dose: 1 mg Losartan Potassium (Cozaar -) 50 mg PO DAILY [facility] Last Admin: 07/27/17 11:13 Dose: 50 mg Magnesium Oxide (Mag-Ox -) 400 mg PO BID [facility] Last Admin: 07/27/17 21:50 Dose: 400 mg Methylnaltrexone [place] (Relistor -) 12 mg SQ DAILY [facility] Last Admin: 07/27/17 12:32 Dose: Not Given Metoprolol Succinate (Toprol Xl -) 50 mg PO DAILY [facility] Last Admin: 07/27/17 11:12 Dose: 50 mg Miscellaneous (Lidoderm Patch Removal) 1 each MC DAILY@2200 [facility] Last Admin: 07/27/17 21:48 Dose: 1 each Oxycodone HCl (Roxicodone -) 15 mg PO Q6H PRN PRN Reason: PAIN SCALE 5 -7 Last Admin: 07/27/17 05:37 Dose: 15 mg Oxycodone HCl (Oxycontin -) 20 mg PO BID [facility] Last Admin: 07/27/17 21:49 Dose: 20 mg Promethazine HCl (Phenergan Injection -) 25 mg IVPB Q6H PRN PRN Reason: NAUSEA Last Admin: 07/27/17 13:07 Dose: 25 mg Simethicone (Mylicon -) 80 mg PO Q4H PRN PRN Reason: GAS Last Admin: 07/27/17 11:18 Dose: 80 mg - Objective Vital Signs: Vital Signs Temperature 98.2 F 07/28/17 06:00 Pulse Rate 100 H 07/28/17 06:00 Respiratory Rate 20 07/28/17 06:00 Blood Pressure 153/91 07/28/17 06:00 O2 Sat by Pulse Oximetry (%) 95 07/27/17 23:55 Constitutional: Yes: Calm, Mild Distress, Obese Eyes: Yes: Conjunctiva Clear, EOM Intact HENT: Yes: Atraumatic, Normocephalic Neck: Yes: Supple, Trachea Midline Cardiovascular: Yes: Regular Rate and Rhythm, S1, S2 Respiratory: Yes: Regular, CTA Bilaterally Gastrointestinal: Yes: Normal Bowel Sounds, Soft, Distention (moderate, central tympanny), Vomiting (with NG tube insertion last night). No: Tenderness, Tenderness, Rebound Genitourinary: No: CVA Tenderness - Left, CVA Tenderness - Right Extremities: No: Cool, Cyanosis Edema: No Peripheral Pulses WNL: Yes Peripheral Pulses: Left Radial: 2+, Right Radial: 2+, Left Doralis Pedis: 2+, Right Dorsalis Pedis: 2+, Left Femoral: 2+, Right Femoral: 2+ Integumentary: No: Jaundice, Rash Neurological: Yes: Alert, Oriented Psychiatric: Yes: Alert, Oriented Labs: CBC, BMP 07/28/17 08:00 07/28/17 08:00 INR, PTT INR 1.04 (0.82-1.09) 07/18/17 01:57 - ....Imaging X-ray: Report Reviewed, Image Reviewed (SBO pattern similar to previous) Problem List - Problems (1) Small bowel obstruction Assessment/Plan: 56 yo male with 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 He has a small bowel obstruction likely due to cancer recurrence. Reporting having passed flatus and BM via ileostomy. Surgery would not benefit this patient at this point. He prefers to continued non- operatively. Having some intermittent emesis and abdominal distension, NGT output 300-400ml NPO and IVF hydration NGT decompression serial abdominal xrays optimize nutritional status appreciate Medical oncology will follow for serial exams Dr. Solano is covering this weeknend Code(s): K56.609 - UNSP INTESTNL OBST, UNSP TO PARTIAL VERSUS COMPLETE OBST (2) Abdominal carcinomatosis Code(s): C76.2 - MALIGNANT NEOPLASM OF ABDOMEN (3) Intraabdominal fluid collection Code(s): R18.8 - OTHER ASCITES (4) ZAHRA (acute kidney injury) Code(s): N17.9 - ACUTE KIDNEY FAILURE, UNSPECIFIED (5) Hydronephrosis due to obstruction of ureter Code(s): N13.2 - HYDRONEPHROSIS WITH RENAL AND URETERAL CALCULOUS OBSTRUCTION (6) HTN (hypertension) Code(s): I10 - ESSENTIAL (PRIMARY) HYPERTENSION Qualifiers: Hypertension type: essential hypertension Qualified Code(s): I10 - Essential (primary) hypertension
[2017-07-28] MEDS ORDERED: ZOLPIDEM TARTRATE 5 MG TABLET PO PRN (11:35)
[2017-07-28] MEDS: Methylnaltrexone Bromide 12 MG/0.6 ML KIT SQ SCH (12:21)
[2017-07-28] MEDS: oxyCODONE HCL 5 MG TABLET PO PRN (18:47)
[2017-07-28] MEDS: LIDOCAINE PATCH REMOVAL MC SCH (21:27)
[2017-07-29] MEDS: CEFOXITIN SODIUM 2 GM in DEXTROSE 5%-WATER - 100 ML IVPB SCH ×4 (02:04→21:30)
[2017-07-29] MEDS: oxyCODONE HCL 5 MG TABLET PO PRN (04:38)
[2017-07-29 07:58] LABS: ANION GAP 7 (8-16); CALCIUM 8.3 mg/dL (8.5-10.1); CO2 29 mmol/L (21-32); CREATININE 0.9 mg/dL (0.7-1.3); GLUCOSE,RANDOM 125 mg/dL (74-106)
[2017-07-29] MEDS: amLODIPine BESYLATE 10 MG TABLET (FP) PO SCH (10:40)
[2017-07-29] MEDS: MAGNESIUM OXIDE 400 MG TABLET (FP) PO SCH (10:41)
[2017-07-29] MEDS: LOSARTAN POTASSIUM 50 MG TABLET (FP) PO SCH (10:41)
[2017-07-29] MEDS: oxyCODONE HCL 20 MG SUSTAINED ACTING TABLET PO SCH ×2 (10:41→11:26)
[2017-07-29] MEDS: METOPROLOL SUCCINATE 50 MG TAB.SR.24H (FP) PO SCH (10:41)
[2017-07-29] MEDS: ESCITALOPRAM OXALATE 10 MG TABLET (FP) PO SCH (11:23)
[2017-07-29] MEDS ORDERED: PT OWN MED DRAWER 7, Y5N ONE ×3 (11:32→21:22)
[2017-07-29] MEDS: FAMOTIDINE IV 20 MG/12 ML VIAL IVPUSH SCH ×2 (11:39→22:19)
[2017-07-29] MEDS: LIDOCAINE 5% TOPICAL PATCH TP SCH (11:39)
--- NOTE | 2017-07-29 15:21 | PN ---
Progress Note, Physician Chief Complaint: PATIENT IN DISTRESS C/O NGT , WANTS IT OUT WE EXPLAINED WHY NE NEEDS IT AND HE HAS TO BE COMPLIANT IF HE WOULD LIKE TO GET BETTER. - Current Medication List Current Medications: Active Medications Acetaminophen (Tylenol -) 650 mg PO Q6H PRN PRN Reason: FEVER OR PAIN Last Admin: 07/25/17 08:12 Dose: 650 mg Amlodipine Besylate (Norvasc -) 10 mg PO DAILY [facility] Last Admin: 07/29/17 10:40 Dose: 10 mg Escitalopram Oxalate (Lexapro -) 10 mg PO DAILY [facility] Last Admin: 07/29/17 11:23 Dose: Not Given Cefoxitin Sodium 2 gm/ (Dextrose) 100 mls @ 100 mls/hr IVPB Q6H-IV [facility] Last Admin: 07/29/17 11:38 Dose: 100 mls/hr Dextrose/Sodium Chloride (D5-Ns -) 1,000 mls @ 83 mls/hr IV ASDIR [facility] Last Admin: 07/28/17 21:35 Dose: 83 mls/hr Famotidine (Pepcid 20 Mg/12 Ml Push) 20 mg in 12 mls @ 144 mls/hr IVPUSH BID [facility] Last Admin: 07/29/17 11:39 Dose: 144 mls/hr Lidocaine (Lidoderm Patch -) 1 patch TP DAILY [facility] Last Admin: 07/29/17 11:39 Dose: 1 patch Losartan Potassium (Cozaar -) 50 mg PO DAILY [facility] Last Admin: 07/29/17 10:41 Dose: 50 mg Magnesium Oxide (Mag-Ox -) 400 mg PO BID [facility] Last Admin: 07/29/17 10:41 Dose: 400 mg Metoprolol Succinate (Toprol Xl -) 50 mg PO DAILY [facility] Last Admin: 07/29/17 10:41 Dose: 50 mg Miscellaneous (Lidoderm Patch Removal) 1 each MC DAILY@2200 [facility] Last Admin: 07/28/17 21:27 Dose: 1 each Oxycodone HCl (Roxicodone -) 15 mg PO Q6H PRN PRN Reason: PAIN SCALE 5 -7 Last Admin: 07/29/17 04:38 Dose: 15 mg Oxycodone HCl (Oxycontin -) 20 mg PO BID [facility] Last Admin: 07/29/17 11:26 Dose: Not Given Promethazine HCl (Phenergan Injection -) 25 mg IVPB Q6H PRN PRN Reason: NAUSEA Last Admin: 07/27/17 13:07 Dose: 25 mg Simethicone (Mylicon -) 80 mg PO Q4H PRN PRN Reason: GAS Last Admin: 07/28/17 10:13 Dose: 80 mg Zolpidem Tartrate (Ambien -) 5 mg PO HS PRN PRN Reason: INSOMNIA Last Admin: 07/28/17 21:26 Dose: 5 mg - Objective Vital Signs: Vital Signs Temperature 98.2 F 07/29/17 15:07 Pulse Rate 103 H 07/29/17 10:00 Respiratory Rate 16 07/29/17 15:07 Blood Pressure 149/78 07/29/17 15:07 O2 Sat by Pulse Oximetry (%) 95 07/28/17 09:00 Constitutional: Yes: Moderate Distress Eyes: Yes: WNL HENT: Yes: WNL Neck: Yes: WNL Cardiovascular: Yes: WNL Respiratory: Yes: WNL Gastrointestinal: Yes: Tenderness Genitourinary: Yes: WNL Musculoskeletal: Yes: WNL Extremities: Yes: WNL Edema: No Peripheral Pulses WNL: Yes Integumentary: Yes: WNL Wound/Incision: Yes: Clean/Dry Neurological: Yes: WNL ...Motor Strength: WNL Psychiatric: Yes: WNL Labs: CBC, BMP 07/28/17 08:00 07/29/17 07:00 INR, PTT INR 1.04 (0.82-1.09) 07/18/17 01:57 Problem List - Problems (1) ZAHRA (acute kidney injury) Code(s): N17.9 - ACUTE KIDNEY FAILURE, UNSPECIFIED (2) Small bowel obstruction Code(s): K56.609 - UNSP INTESTNL OBST, UNSP TO PARTIAL VERSUS COMPLETE OBST (3) Abdominal carcinomatosis Code(s): C76.2 - MALIGNANT NEOPLASM OF ABDOMEN (4) Abnormal abdominal CT scan Code(s): R93.5 - ABN FINDINGS ON DX IMAGING OF ABD REGIONS, INC RETROPERITON (5) Acute abdomen Code(s): R10.0 - ACUTE ABDOMEN (7) Rectal adenocarcinoma Code(s): C20 - MALIGNANT NEOPLASM OF RECTUM Assessment/Plan NGT TO SUCTION READJUSTED BY SURGERY IV ABX PAIN CONTROL NPO
[2017-07-29] MEDS ORDERED: METOPROLOL TARTRATE 5 MG/5 ML VIAL IVPUSH PRN (15:30)
[2017-07-29] MEDS: DEXTROSE 5%-NORMAL SALINE 1,000 ML IV SCH (16:50)
[2017-07-29] MEDS: HYDROmorphone HCL CARPU-JECT 2 MG/1 ML DISP.SYRIN IVPB PRN (17:13)
[2017-07-29] MEDS ORDERED: METOPROLOL TARTRATE 5 MG/5 ML VIAL IVPB PRN (17:43)
--- NOTE | 2017-07-29 18:27 | PN ---
Progress Note, Physician History of Present Illness: Pt with metastatic rectal cancer and malignant SBO. Accepted NGT placement yesterday, but c/o discomfort and would like to have it out. He still has some abdominal pain. NG has had 825ml out, clear/brown output since placement, including 275 last shift. Ileostomy with positive function. AXR shows persistent SBO picture, very similar to yesterday despite NGT. Pt seen and examined in bed, with Dr. Fritz at bedside. - Current Medication List Current Medications: Active Medications Acetaminophen (Tylenol -) 650 mg PO Q6H PRN PRN Reason: FEVER OR PAIN Last Admin: 07/25/17 08:12 Dose: 650 mg Amlodipine Besylate (Norvasc -) 10 mg PO DAILY [facility] Last Admin: 07/29/17 10:40 Dose: 10 mg Escitalopram Oxalate (Lexapro -) 10 mg PO DAILY [facility] Last Admin: 07/29/17 11:23 Dose: Not Given Hydromorphone HCl (Dilaudid Injection -) 2 mg IVPB Q6H PRN PRN Reason: PAIN Last Admin: 07/29/17 17:13 Dose: 2 mg Cefoxitin Sodium 2 gm/ (Dextrose) 100 mls @ 100 mls/hr IVPB Q6H-IV [facility] Last Admin: 07/29/17 16:50 Dose: 100 mls/hr Dextrose/Sodium Chloride (D5-Ns -) 1,000 mls @ 83 mls/hr IV ASDIR [facility] Last Admin: 07/29/17 16:50 Dose: 83 mls/hr Famotidine (Pepcid 20 Mg/12 Ml Push) 20 mg in 12 mls @ 144 mls/hr IVPUSH BID [facility] Last Admin: 07/29/17 11:39 Dose: 144 mls/hr Lidocaine (Lidoderm Patch -) 1 patch TP DAILY [facility] Last Admin: 07/29/17 11:39 Dose: 1 patch Lorazepam (Ativan Injection -) 1 mg IVPUSH Q6H PRN PRN Reason: ANXIETY Losartan Potassium (Cozaar -) 50 mg PO DAILY [facility] Last Admin: 07/29/17 10:41 Dose: 50 mg Metoprolol Succinate (Toprol Xl -) 50 mg PO DAILY [facility] Last Admin: 07/29/17 10:41 Dose: 50 mg Metoprolol Tartrate (Lopressor Injection -) 5 mg IVPB Q4H PRN PRN Reason: HYPERTENSION Miscellaneous (Lidoderm Patch Removal) 1 each [facility] DAILY@2200 [facility] Last Admin: 07/28/17 21:27 Dose: 1 each Promethazine HCl (Phenergan Injection -) 25 mg IVPB Q6H PRN PRN Reason: NAUSEA Last Admin: 07/27/17 13:07 Dose: 25 mg Simethicone (Mylicon -) 80 mg PO Q4H PRN PRN Reason: GAS Last Admin: 07/28/17 10:13 Dose: 80 mg - Objective Vital Signs: Vital Signs Temperature 98.1 F 07/29/17 17:20 Pulse Rate 104 H 07/29/17 17:20 Respiratory Rate 20 07/29/17 17:20 Blood Pressure 164/103 07/29/17 17:20 O2 Sat by Pulse Oximetry (%) 95 07/28/17 09:00 Constitutional: Yes: Well Nourished, Anxious, Mild Distress Eyes: Yes: Conjunctiva Clear, EOM Intact HENT: Yes: Atraumatic, Normocephalic Gastrointestinal: Yes: Soft, Distention, Hypoactive Bowel Sounds, Tenderness ( diffuse, no R/G), Other (multiple healed scars; ileostomy viable and with stool output recorded) Extremities: No: Cool, Cyanosis Integumentary: No: Jaundice, Rash Neurological: Yes: Alert, Oriented Psychiatric: Yes: Alert, Oriented, Agitated (mildly) Labs: BMP 07/29/17 07:00 Abnormal Lab Results 07/29/17 07:00 Anion Gap 7 L Random Glucose 125 H Calcium 8.3 L - ....Imaging X-ray: Report Reviewed, Image Reviewed Problem List - Problems (1) Small bowel obstruction Assessment/Plan: continue NGT/NPO for now having some ileostomy function serial AXR surgery would not benefit this patient at this point oncology input noted will follow for serial exams Code(s): K56.609 - UNSP INTESTNL OBST, UNSP TO PARTIAL VERSUS COMPLETE OBST (2) Local recurrence of rectal cancer Code(s): C20 - MALIGNANT NEOPLASM OF RECTUM (3) Abdominal carcinomatosis Code(s): C76.2 - MALIGNANT NEOPLASM OF ABDOMEN
[2017-07-29] MEDS: LORazepam 2 MG/ML SDV VIAL IVPUSH PRN (19:38)
[2017-07-29] MEDS: LIDOCAINE PATCH REMOVAL MC SCH (22:22)
[2017-07-30] MEDS: HYDROmorphone HCL CARPU-JECT 2 MG/1 ML DISP.SYRIN IVPB PRN ×4 (00:18→19:49)
[2017-07-30] MEDS: CEFOXITIN SODIUM 2 GM in DEXTROSE 5%-WATER - 100 ML IVPB SCH ×4 (02:37→21:21)
[2017-07-30] MEDS: LIDOCAINE 5% TOPICAL PATCH TP SCH (09:07)
[2017-07-30] MEDS: DEXTROSE 5%-NORMAL SALINE 1,000 ML IV SCH ×2 (11:11→18:13)
[2017-07-30] MEDS: FAMOTIDINE IV 20 MG/12 ML VIAL IVPUSH SCH ×2 (13:09→22:13)
[2017-07-30] MEDS ORDERED: PT OWN MED DRAWER 7, Y5N ONE ×2 (14:08→19:41)
--- NOTE | 2017-07-30 14:15 | PN ---
Progress Note, Physician Chief Complaint: AWAKE ALERT CALM NGT TO SUCTION - Current Medication List Current Medications: Active Medications Acetaminophen (Tylenol -) 650 mg PO Q6H PRN PRN Reason: FEVER OR PAIN Last Admin: 07/25/17 08:12 Dose: 650 mg Amlodipine Besylate (Norvasc -) 10 mg PO DAILY [facility] Last Admin: 07/29/17 10:40 Dose: 10 mg Escitalopram Oxalate (Lexapro -) 10 mg PO DAILY [facility] Last Admin: 07/29/17 11:23 Dose: Not Given Hydromorphone HCl (Dilaudid Injection -) 2 mg IVPB Q6H PRN PRN Reason: PAIN Last Admin: 07/30/17 09:06 Dose: 2 mg Cefoxitin Sodium 2 gm/ (Dextrose) 100 mls @ 100 mls/hr IVPB Q6H-IV [facility] Last Admin: 07/30/17 11:10 Dose: 100 mls/hr Dextrose/Sodium Chloride (D5-Ns -) 1,000 mls @ 83 mls/hr IV ASDIR [facility] Last Admin: 07/30/17 11:11 Dose: 83 mls/hr Famotidine (Pepcid 20 Mg/12 Ml Push) 20 mg in 12 mls @ 144 mls/hr IVPUSH BID [facility] Last Admin: 07/30/17 13:09 Dose: 144 mls/hr Lidocaine (Lidoderm Patch -) 1 patch TP DAILY [facility] Last Admin: 07/30/17 09:07 Dose: 1 patch Lorazepam (Ativan Injection -) 1 mg IVPUSH Q6H PRN PRN Reason: ANXIETY Last Admin: 07/29/17 19:38 Dose: 1 mg Losartan Potassium (Cozaar -) 50 mg PO DAILY [facility] Last Admin: 07/29/17 10:41 Dose: 50 mg Metoprolol Succinate (Toprol Xl -) 50 mg PO DAILY [facility] Last Admin: 07/29/17 10:41 Dose: 50 mg Metoprolol Tartrate (Lopressor Injection -) 5 mg IVPB Q4H PRN PRN Reason: HYPERTENSION Last Admin: 07/29/17 18:50 Dose: 5 mg Miscellaneous (Lidoderm Patch Removal) 1 each [facility] DAILY@2200 [facility] Last Admin: 07/29/17 22:22 Dose: 1 each Promethazine HCl (Phenergan Injection -) 25 mg IVPB Q6H PRN PRN Reason: NAUSEA Last Admin: 07/27/17 13:07 Dose: 25 mg Simethicone (Mylicon -) 80 mg PO Q4H PRN PRN Reason: GAS Last Admin: 07/28/17 10:13 Dose: 80 mg - Objective Vital Signs: Vital Signs Temperature 98 F 07/30/17 06:04 Pulse Rate 93 H 07/30/17 06:04 Respiratory Rate 20 07/30/17 06:04 Blood Pressure 165/105 07/30/17 06:04 O2 Sat by Pulse Oximetry (%) 95 07/28/17 09:00 Constitutional: Yes: Mild Distress Eyes: Yes: WNL HENT: Yes: WNL Neck: Yes: WNL Cardiovascular: Yes: WNL Respiratory: Yes: WNL Gastrointestinal: Yes: Tenderness, Rebound Genitourinary: Yes: WNL Musculoskeletal: Yes: WNL Extremities: Yes: WNL Edema: Yes Edema: LLE: Trace, RLE: Trace Peripheral Pulses WNL: Yes Integumentary: Yes: WNL Wound/Incision: Yes: Clean/Dry Neurological: Yes: WNL ...Motor Strength: WNL Psychiatric: Yes: WNL Labs: CBC, BMP 07/28/17 08:00 07/29/17 07:00 INR, PTT INR 1.04 (0.82-1.09) 07/18/17 01:57 Problem List - Problems (1) ZAHRA (acute kidney injury) Code(s): N17.9 - ACUTE KIDNEY FAILURE, UNSPECIFIED (2) Small bowel obstruction Code(s): K56.609 - UNSP INTESTNL OBST, UNSP TO PARTIAL VERSUS COMPLETE OBST (3) Abdominal carcinomatosis Code(s): C76.2 - MALIGNANT NEOPLASM OF ABDOMEN (4) Abnormal abdominal CT scan Code(s): R93.5 - ABN FINDINGS ON DX IMAGING OF ABD REGIONS, INC RETROPERITON (5) Acute abdomen Code(s): R10.0 - ACUTE ABDOMEN (7) Rectal adenocarcinoma Code(s): C20 - MALIGNANT NEOPLASM OF RECTUM Assessment/Plan START CLONIDINE PATCH FOR BP CONTROL ALONG WITH METOPROLOL IV. NPO NGT PAIN CONTROL RELISTOR SQ FOR NARCOTIC BOWEL DVT PROPHYLAXIS
--- NOTE | 2017-07-30 15:04 | PN ---
Progress Note, Physician History of Present Illness: Pt with metastatic rectal cancer and malignant SBO. NG in place, with clear/ yellow-brown output. His abdominal pain is somewhat better. Ileostomy with positive function, bag starting to leak. Pt seen and examined in bed. - Current Medication List Current Medications: Active Medications Acetaminophen (Tylenol -) 650 mg PO Q6H PRN PRN Reason: FEVER OR PAIN Last Admin: 07/25/17 08:12 Dose: 650 mg Amlodipine Besylate (Norvasc -) 10 mg PO DAILY [facility] Last Admin: 07/29/17 10:40 Dose: 10 mg Escitalopram Oxalate (Lexapro -) 10 mg PO DAILY [facility] Last Admin: 07/29/17 11:23 Dose: Not Given Hydromorphone HCl (Dilaudid Injection -) 2 mg IVPB Q6H PRN PRN Reason: PAIN Last Admin: 07/30/17 14:20 Dose: 2 mg Cefoxitin Sodium 2 gm/ (Dextrose) 100 mls @ 100 mls/hr IVPB Q6H-IV [facility] Last Admin: 07/30/17 14:21 Dose: 100 mls/hr Dextrose/Sodium Chloride (D5-Ns -) 1,000 mls @ 83 mls/hr IV ASDIR [facility] Last Admin: 07/30/17 11:11 Dose: 83 mls/hr Famotidine (Pepcid 20 Mg/12 Ml Push) 20 mg in 12 mls @ 144 mls/hr IVPUSH BID [facility] Last Admin: 07/30/17 13:09 Dose: 144 mls/hr Lidocaine (Lidoderm Patch -) 1 patch TP DAILY [facility] Last Admin: 07/30/17 09:07 Dose: 1 patch Lorazepam (Ativan Injection -) 1 mg IVPUSH Q6H PRN PRN Reason: ANXIETY Last Admin: 07/29/17 19:38 Dose: 1 mg Losartan Potassium (Cozaar -) 50 mg PO DAILY [facility] Last Admin: 07/29/17 10:41 Dose: 50 mg Metoprolol Succinate (Toprol Xl -) 50 mg PO DAILY [facility] Last Admin: 07/29/17 10:41 Dose: 50 mg Metoprolol Tartrate (Lopressor Injection -) 5 mg IVPB Q4H PRN PRN Reason: HYPERTENSION Last Admin: 07/29/17 18:50 Dose: 5 mg Miscellaneous (Lidoderm Patch Removal) 1 each [facility] DAILY@2200 [facility] Last Admin: 07/29/17 22:22 Dose: 1 each Promethazine HCl (Phenergan Injection -) 25 mg IVPB Q6H PRN PRN Reason: NAUSEA Last Admin: 07/27/17 13:07 Dose: 25 mg Simethicone (Mylicon -) 80 mg PO Q4H PRN PRN Reason: GAS Last Admin: 07/28/17 10:13 Dose: 80 mg - Objective Vital Signs: Vital Signs Temperature 98 F 07/30/17 06:04 Pulse Rate 93 H 07/30/17 06:04 Respiratory Rate 20 07/30/17 06:04 Blood Pressure 165/105 07/30/17 06:04 O2 Sat by Pulse Oximetry (%) 95 07/28/17 09:00 Constitutional: Yes: Well Nourished, No Distress, Calm Eyes: Yes: Conjunctiva Clear, EOM Intact HENT: Yes: Atraumatic, Normocephalic, Other (NGT in place, at ~55cm but sumping well on suction.) Gastrointestinal: Yes: Soft, Distention (soft), Tenderness (mild diffuse - much less than yesterday), Other (ileostomy patent, bag starting to leak laterally) Extremities: No: Cool, Cyanosis Integumentary: No: Jaundice, Rash Neurological: Yes: Alert, Oriented Labs: no new labs - ....Imaging X-ray: Pending (not done yet today) Problem List - Problems (1) Small bowel obstruction Assessment/Plan: continue NGT/NPO for now having some ileostomy function serial AXR surgery would not benefit this patient at this point oncology input noted will follow for serial exams may be able to help change ileostomy appliance later today Code(s): K56.609 - UNSP INTESTNL OBST, UNSP TO PARTIAL VERSUS COMPLETE OBST (2) Local recurrence of rectal cancer Code(s): C20 - MALIGNANT NEOPLASM OF RECTUM (3) Abdominal carcinomatosis Code(s): C76.2 - MALIGNANT NEOPLASM OF ABDOMEN
[2017-07-30] MEDS: LORazepam 2 MG/ML SDV VIAL IVPUSH PRN (22:20)
[2017-07-30] MEDS: LIDOCAINE PATCH REMOVAL MC SCH (22:24)
[2017-07-31] MEDS: CEFOXITIN SODIUM 2 GM in DEXTROSE 5%-WATER - 100 ML IVPB SCH ×5 (03:00→23:25)
[2017-07-31] MEDS: DEXTROSE 5%-NORMAL SALINE 1,000 ML IV SCH (04:23)
[2017-07-31] MEDS: HYDROmorphone HCL CARPU-JECT 2 MG/1 ML DISP.SYRIN IVPB PRN ×3 (04:32→19:56)
[2017-07-31 08:29] LABS: ANION GAP 10 (8-16); CALCIUM 8.3 mg/dL (8.5-10.1); CO2 25 mmol/L (21-32); GLUCOSE,RANDOM 122 mg/dL (74-106)
[2017-07-31 08:32] LABS: CREATININE 0.8 mg/dL (0.7-1.3)
[2017-07-31] MEDS ORDERED: PT OWN MED DRAWER 7, Y5N ONE ×3 (10:14→20:06)
[2017-07-31] MEDS: LIDOCAINE 5% TOPICAL PATCH TP SCH (10:17)
[2017-07-31] MEDS: FAMOTIDINE IV 20 MG/12 ML VIAL IVPUSH SCH ×2 (10:17→21:58)
--- NOTE | 2017-07-31 12:35 | PN ---
Progress Note, Physician History of Present Illness: Pt with metastatic rectal cancer and malignant SBO. NG in place, with minimal output. His abdominal pain and distention are better. Ileostomy with positive function including gas, bag changed this morning with good seal. - Current Medication List Current Medications: Active Medications Acetaminophen (Tylenol -) 650 mg PO Q6H PRN PRN Reason: FEVER OR PAIN Last Admin: 07/25/17 08:12 Dose: 650 mg Amlodipine Besylate (Norvasc -) 10 mg PO DAILY [facility] Last Admin: 07/29/17 10:40 Dose: 10 mg Escitalopram Oxalate (Lexapro -) 10 mg PO DAILY [facility] Last Admin: 07/29/17 11:23 Dose: Not Given Hydromorphone HCl (Dilaudid Injection -) 2 mg IVPB Q6H PRN PRN Reason: PAIN Last Admin: 07/31/17 04:32 Dose: 2 mg Cefoxitin Sodium 2 gm/ (Dextrose) 100 mls @ 100 mls/hr IVPB Q6H-IV MAT Last Admin: 07/31/17 10:17 Dose: 100 mls/hr Dextrose/Sodium Chloride (D5-Ns -) 1,000 mls @ 83 mls/hr IV ASDIR [facility] Last Admin: 07/31/17 04:23 Dose: 83 mls/hr Famotidine (Pepcid 20 Mg/12 Ml Push) 20 mg in 12 mls @ 144 mls/hr IVPUSH BID MAT Last Admin: 07/31/17 10:17 Dose: 144 mls/hr Lidocaine (Lidoderm Patch -) 1 patch TP DAILY [facility] Last Admin: 07/31/17 10:17 Dose: 1 patch Lorazepam (Ativan Injection -) 1 mg IVPUSH Q6H PRN PRN Reason: ANXIETY Last Admin: 07/30/17 22:20 Dose: 1 mg Losartan Potassium (Cozaar -) 50 mg PO DAILY [facility] Last Admin: 07/29/17 10:41 Dose: 50 mg Metoprolol Succinate (Toprol Xl -) 50 mg PO DAILY [facility] Last Admin: 07/29/17 10:41 Dose: 50 mg Metoprolol Tartrate (Lopressor Injection -) 5 mg IVPB Q4H PRN PRN Reason: HYPERTENSION Last Admin: 07/29/17 18:50 Dose: 5 mg Miscellaneous (Lidoderm Patch Removal) 1 each MC DAILY@2200 [facility] Last Admin: 07/30/17 22:24 Dose: 1 each Promethazine HCl (Phenergan Injection -) 25 mg IVPB Q6H PRN PRN Reason: NAUSEA Last Admin: 07/27/17 13:07 Dose: 25 mg Simethicone (Mylicon -) 80 mg PO Q4H PRN PRN Reason: GAS Last Admin: 07/28/17 10:13 Dose: 80 mg - Objective Vital Signs: Vital Signs Temperature 99 F 07/31/17 07:52 Pulse Rate 116 H 07/31/17 07:52 Respiratory Rate 20 07/31/17 07:52 Blood Pressure 149/98 07/31/17 07:52 O2 Sat by Pulse Oximetry (%) 95 07/28/17 09:00 Constitutional: Yes: Well Nourished, No Distress, Calm Eyes: Yes: Conjunctiva Clear, EOM Intact HENT: Yes: Atraumatic, Normocephalic, Other (NG with light output - removed) Gastrointestinal: Yes: Normal Bowel Sounds (more in lower than upper abdomen), Soft, Tenderness (minimal diffuse - much improved), Other (ileostomy with gas and liquid output). No: Distention (minimal, much improved, mild tympany upper) , Tenderness, Rebound Extremities: No: Cool, Cyanosis Integumentary: No: Jaundice, Rash Neurological: Yes: Alert, Oriented Psychiatric: Yes: Alert, Oriented Labs: [facility] 07/31/17 07:00 - ....Imaging X-ray: Report Reviewed (significantly decreased gaseous distention of bowel loops), Image Reviewed Problem List - Problems (1) Small bowel obstruction Assessment/Plan: NG removed at bedside + ileostomy function ok for clear liquids - to go slowly surgery would not benefit this patient at this point oncology input noted will follow for serial exams pt states he "doesn't want Dr. Fritz anymore," but is willing to stay to see if he can ultimately tolerate enough po to keep himself hydrated and get discharged formally to go back to Dr. Doss (oncology) Code(s): K56.609 - UNSP INTESTNL OBST, UNSP TO PARTIAL VERSUS COMPLETE OBST (2) Local recurrence of rectal cancer Code(s): C20 - MALIGNANT NEOPLASM OF RECTUM (3) Abdominal carcinomatosis Code(s): C76.2 - MALIGNANT NEOPLASM OF ABDOMEN
--- NOTE | 2017-07-31 17:31 | PN ---
Progress Note, Physician Chief Complaint: IN A BAD MOOD DOES NOT WANT TO SEE ANYONE EATING AND DRINKING LIQUIDS - Current Medication List Current Medications: Active Medications Acetaminophen (Tylenol -) 650 mg PO Q6H PRN PRN Reason: FEVER OR PAIN Last Admin: 07/25/17 08:12 Dose: 650 mg Amlodipine Besylate (Norvasc -) 10 mg PO DAILY [facility] Last Admin: 07/29/17 10:40 Dose: 10 mg Escitalopram Oxalate (Lexapro -) 10 mg PO DAILY [facility] Last Admin: 07/29/17 11:23 Dose: Not Given Hydromorphone HCl (Dilaudid Injection -) 2 mg IVPB Q6H PRN PRN Reason: PAIN Last Admin: 07/31/17 13:06 Dose: 2 mg Cefoxitin Sodium 2 gm/ (Dextrose) 100 mls @ 100 mls/hr IVPB Q6H-IV MAT Last Admin: 07/31/17 16:03 Dose: 100 mls/hr Dextrose/Sodium Chloride (D5-Ns -) 1,000 mls @ 83 mls/hr IV ASDIR [facility] Last Admin: 07/31/17 04:23 Dose: 83 mls/hr Famotidine (Pepcid 20 Mg/12 Ml Push) 20 mg in 12 mls @ 144 mls/hr IVPUSH BID [facility] Last Admin: 07/31/17 10:17 Dose: 144 mls/hr Lidocaine (Lidoderm Patch -) 1 patch TP DAILY [facility] Last Admin: 07/31/17 10:17 Dose: 1 patch Lorazepam (Ativan Injection -) 1 mg IVPUSH Q6H PRN PRN Reason: ANXIETY Last Admin: 07/30/17 22:20 Dose: 1 mg Losartan Potassium (Cozaar -) 50 mg PO DAILY [facility] Last Admin: 07/29/17 10:41 Dose: 50 mg Metoclopramide HCl (Reglan Injection -) 10 mg IVPUSH Q6H [facility] Metoprolol Succinate (Toprol Xl -) 50 mg PO DAILY [facility] Last Admin: 07/29/17 10:41 Dose: 50 mg Metoprolol Tartrate (Lopressor Injection -) 5 mg IVPB Q4H PRN PRN Reason: HYPERTENSION Last Admin: 07/29/17 18:50 Dose: 5 mg Miscellaneous (Lidoderm Patch Removal) 1 each MC DAILY@2200 [facility] Last Admin: 07/30/17 22:24 Dose: 1 each Promethazine HCl (Phenergan Injection -) 25 mg IVPB Q6H PRN PRN Reason: NAUSEA Last Admin: 07/27/17 13:07 Dose: 25 mg Simethicone (Mylicon -) 80 mg PO Q4H PRN PRN Reason: GAS Last Admin: 07/28/17 10:13 Dose: 80 mg - Objective Vital Signs: Vital Signs Temperature 99 F 07/31/17 07:52 Pulse Rate 116 H 07/31/17 07:52 Respiratory Rate 20 07/31/17 07:52 Blood Pressure 149/98 07/31/17 07:52 O2 Sat by Pulse Oximetry (%) 95 07/28/17 09:00 Constitutional: Yes: Mild Distress Eyes: Yes: WNL HENT: Yes: WNL Neck: Yes: WNL Cardiovascular: Yes: WNL Respiratory: Yes: WNL Gastrointestinal: Yes: Other (COLOSTOMY) Genitourinary: Yes: WNL Musculoskeletal: Yes: WNL Extremities: Yes: WNL Edema: No Peripheral Pulses WNL: Yes Integumentary: Yes: WNL Wound/Incision: Yes: Dressing Dry and Intact Neurological: Yes: WNL ...Motor Strength: WNL Psychiatric: Yes: Agitated Labs: CBC, BMP 07/28/17 08:00 07/31/17 07:00 INR, PTT INR 1.04 (0.82-1.09) 07/18/17 01:57 Problem List - Problems (1) ZAHRA (acute kidney injury) Code(s): N17.9 - ACUTE KIDNEY FAILURE, UNSPECIFIED (2) Small bowel obstruction Code(s): K56.609 - UNSP INTESTNL OBST, UNSP TO PARTIAL VERSUS COMPLETE OBST (3) Abdominal carcinomatosis Code(s): C76.2 - MALIGNANT NEOPLASM OF ABDOMEN (4) Abnormal abdominal CT scan Code(s): R93.5 - ABN FINDINGS ON DX IMAGING OF ABD REGIONS, INC RETROPERITON (5) Acute abdomen Code(s): R10.0 - ACUTE ABDOMEN (7) Rectal adenocarcinoma Code(s): C20 - MALIGNANT NEOPLASM OF RECTUM Assessment/Plan CT SCAN ABD IF NO SBO CAN DC HOME TOMORROW WITH APPT WITH DR LIAO PAIN CONTROL
[2017-07-31] MEDS: METOCLOPRAMIDE HCL INJECTION 10 MG/2 ML VIAL IVPUSH SCH ×2 (18:56→23:26)
[2017-07-31] MEDS: LORazepam 2 MG/ML SDV VIAL IVPUSH PRN (19:35)
[2017-07-31] MEDS: LIDOCAINE PATCH REMOVAL MC SCH (21:02)
[2017-07-31] MEDS ORDERED: ACETAMINOPHEN 325 MG TABLET (FP) PO PRN (23:30)
[2017-08-01] MEDS: oxyCODONE HCL 5 MG TABLET PO PRN ×2 (00:46→11:49)
[2017-08-01 07:33] VITALS: PULSE 98
--- NOTE | 2017-08-01 09:23 | PN ---
Progress Note, Physician Chief Complaint: abdominal pain and vomiting History of Present Illness: 56 yo male PMH HTN, stage 3 rectal cancer, found now to have carcinomatosis. Presented with vomiting imaging consistent with an SBO, He reports having flatus in the interim. - Current Medication List Current Medications: Active Medications Acetaminophen (Tylenol -) 650 mg PO Q6H PRN PRN Reason: FEVER OR PAIN Amlodipine Besylate (Norvasc -) 10 mg PO DAILY [facility] Escitalopram Oxalate (Lexapro -) 10 mg PO DAILY [facility] Lidocaine (Lidoderm Patch -) 1 patch TP DAILY [facility] Last Admin: 07/31/17 10:17 Dose: 1 patch Losartan Potassium (Cozaar -) 50 mg PO DAILY [facility] Metoprolol Succinate (Toprol Xl -) 50 mg PO DAILY [facility] Miscellaneous (Lidoderm Patch Removal) 1 each MC DAILY@2200 [facility] Last Admin: 07/31/17 21:02 Dose: 1 each Oxycodone HCl (Roxicodone -) 15 mg PO Q6H PRN PRN Reason: PAIN Last Admin: 08/01/17 00:46 Dose: 15 mg Oxycodone HCl (Oxycontin -) 10 mg PO BID [facility] Pantoprazole Sodium (Protonix -) 40 mg PO DAILY [facility] - Objective Vital Signs: Vital Signs Temperature 98.0 F 08/01/17 06:30 Pulse Rate 98 H 08/01/17 06:30 Respiratory Rate 18 08/01/17 06:30 Blood Pressure 161/108 08/01/17 06:30 O2 Sat by Pulse Oximetry (%) 95 07/28/17 09:00 Constitutional: Yes: Well Nourished, No Distress, Calm, Other Eyes: Yes: Conjunctiva Clear HENT: Yes: Atraumatic, Normocephalic Neck: Yes: Supple, Trachea Midline Cardiovascular: Yes: Regular Rate and Rhythm, S1, S2 Respiratory: Yes: Regular, CTA Bilaterally Gastrointestinal: Yes: Normal Bowel Sounds, Soft. No: Distention, Tenderness ...Rectal Exam: Yes: Deferred Extremities: No: Cool, Cyanosis Edema: No Peripheral Pulses WNL: Yes Peripheral Pulses: Left Doralis Pedis: 2+, Right Dorsalis Pedis: 2+ Neurological: Yes: Alert, Oriented Psychiatric: Yes: Alert, Oriented Labs: CBC, BMP 07/28/17 08:00 07/31/17 07:00 INR, PTT INR 1.04 (0.82-1.09) 07/18/17 01:57 Problem List - Problems (1) Small bowel obstruction Assessment/Plan: 56 yo male with 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 He has a small bowel obstruction likely due to cancer recurrence. Reporting having passed flatus and BM via ileostomy. Surgery would not benefit this patient at this point. He prefers to continued non- operatively. CT scan revewed not really consistent with a perforation, likely intraluminal air. Can be safely discharged for followup with medical oncologist this week. Clear Liquids as tolerated f/u CT A/P reading optimize nutritional status appreciate Medical oncology Code(s): K56.609 - UNSP INTESTNL OBST, UNSP TO PARTIAL VERSUS COMPLETE OBST (2) Abdominal carcinomatosis Code(s): C76.2 - MALIGNANT NEOPLASM OF ABDOMEN (3) Intraabdominal fluid collection Code(s): R18.8 - OTHER ASCITES (4) ZAHRA (acute kidney injury) Code(s): N17.9 - ACUTE KIDNEY FAILURE, UNSPECIFIED (5) Hydronephrosis due to obstruction of ureter Code(s): N13.2 - HYDRONEPHROSIS WITH RENAL AND URETERAL CALCULOUS OBSTRUCTION (6) HTN (hypertension) Code(s): I10 - ESSENTIAL (PRIMARY) HYPERTENSION Qualifiers: Hypertension type: essential hypertension Qualified Code(s): I10 - Essential (primary) hypertension
[2017-08-01] MEDS ORDERED: LOSARTAN POTASSIUM 50 MG TABLET (FP) PO SCH (10:00)
[2017-08-01] MEDS ORDERED: amLODIPine BESYLATE 10 MG TABLET (FP) PO SCH (10:00)
[2017-08-01] MEDS ORDERED: ESCITALOPRAM OXALATE 10 MG TABLET (FP) PO SCH (10:00)
[2017-08-01] MEDS ORDERED: PANTOPRAZOLE 40 MG TABLET (FP) PO SCH (10:00)
[2017-08-01] MEDS ORDERED: oxyCODONE HCL 10 MG SUSTAINED ACTING TABLET PO SCH (10:00)
[2017-08-01] MEDS ORDERED: METOPROLOL SUCCINATE 50 MG TAB.SR.24H (FP) PO SCH (10:00)
[2017-08-01] MEDS: DEXTROSE 5%-NORMAL SALINE 1,000 ML IV SCH (10:15)
[2017-08-01] MEDS: LIDOCAINE 5% TOPICAL PATCH TP SCH (10:15)
--- NOTE | 2017-08-01 14:55 | DS ---
Physical Examination Vital Signs: Vital Signs Temperature 98.0 F 08/01/17 06:30 Pulse Rate 98 H 08/01/17 06:30 Respiratory Rate 18 08/01/17 06:30 Blood Pressure 161/108 08/01/17 06:30 O2 Sat by Pulse Oximetry (%) 95 07/28/17 09:00 Findings/Remarks: I SPOKE TO DR LIAO SHE WILL SEE HIM FOR ONCOLOGY APPOINTMENT TOMORROW 2PM Constitutional: Yes: No Distress Eyes: Yes: WNL HENT: Yes: WNL Neck: Yes: WNL Cardiovascular: Yes: WNL Respiratory: Yes: WNL Gastrointestinal: Yes: Soft Renal/: Yes: WNL Musculoskeletal: Yes: Muscle Weakness Extremities: Yes: WNL Edema: No Peripheral Pulses WNL: Yes Integumentary: Yes: Other Wound/Incision: Yes: Dressing Dry and Intact Neurological: Yes: WNL ...Motor Strength: WNL Psychiatric: Yes: WNL Labs: CBC, BMP 07/28/17 08:00 07/31/17 07:00 Discharge Summary Reason For Visit: SMALL BOWEL OBSTRUCTION Current Active Problems ZAHRA (acute kidney injury) (Acute) Anxiety about health (Acute) Depressed (Acute) Local recurrence of rectal cancer (Acute) Secondary dysthymia (Acute) Small bowel obstruction (Acute) Uvular edema (Acute) Procedures: Principal: CT SCAN ABD Hospital Course: ADMITTED FOR SBO, TREATED IVF, ABX, PAIN CONTROL, NEED ONCOLOGY TO START CHEMOTHERAPY JOSÉ LUIS, APPOINTMENT MADE WITH DR LIAO AT [facility] FOR 2PM TOMORROW. PATIENT TOLERATING THICK PUREE DIET. Condition: Improved - Instructions Diet, Activity, Other Instructions: Follow-up: No surgical follow-up is necessary. But if desired he can call Dr. Hernandez' office at [phone] to make your postop appointment (Monday 11am- 2pm) Clinic is held in the [facility] on the first floor of [facility]. PUREE, LIQUID DIET PROTEIN SHAKES SEE DR LIAO TOMORROW 2PM Referrals: Og Fritz MD [Primary Care Provider] - Disposition: VNS/HOME HEALTH CARE - Home Medications Comprehensive Discharge Medication List: Ambulatory Orders Amlodipine Besylate [Norvasc -] 10 mg PO DAILY #30 tablet 07/13/17 Losartan Potassium 50 mg PO DAILY #30 tablet 07/13/17 Metoprolol Succinate [Toprol XL -] 50 mg PO DAILY #30 tab.sr.24h 07/13/17 Pantoprazole Sodium [Protonix] 40 mg PO DAILY #30 tablet. 07/13/17
[2017-08-01 16:13] VITALS: TEMP 97.6
[2017-08-01 16:16] VITALS: BP 140/87
== END 2017-08-01 15:32 | disposition home health service (06) | DRG 240 ==
LOC: JER 01:16 → JERBED 06:54 → J6S 12:20 → JICU 07-19 03:30 → J8W 07-19 15:06
PROVIDERS: ADMIT Family Medicine; ATTEND Family Medicine
DX: C20 Malignant neoplasm of rectum (principal); N17.9 Acute kidney failure, unspecified; K56.609 Unspecified intestinal obstruction, unspecified as to partial versus complete obstruction; C76.2 Malignant neoplasm of abdomen; D72.829 Elevated white blood cell count, unspecified; N13.9 Obstructive and reflux uropathy, unspecified; R18.8 Other ascites; N13.2 Hydronephrosis with renal and ureteral calculous obstruction; I10 Essential (primary) hypertension; F34.1 Dysthymic disorder; R60.9 Edema, unspecified; K13.79 Other lesions of oral mucosa; N10 Acute pyelonephritis; R10.0 Acute abdomen; T78.3XXA Angioneurotic edema, initial encounter; E66.9 Obesity, unspecified; F41.8 Other specified anxiety disorders
CPT/HCPCS: 36415; 70360-TC; 71010-TC; 74000-TC; 74020-TC; 74176-TC; 74177-TC; 80048; 80053; 81003; 81015; 83605; 83735; 84134; 85025; 85027; 85610; 86850; 86900; 86901; 87040; 87086; 93005; 93010; 97116-GP; 97161-GP; 99283-25; Q9967